=== PATIENT | male | born 1975 | race Caucasian/White ===

== ENCOUNTER 2017-10-27 13:51 | Inpatient (IN) | payer BC ==
[2017-10-27] MEDS ORDERED: Sodium Chloride 0.9% 1,000 ML IV ONE ×2 (14:25→16:16)
[2017-10-27] MEDS ORDERED: Sodium Chloride 0.9% 10 ML Syringe FLUSH PRN (14:25)
--- NOTE | 2017-10-27 14:26 | EDM.PDOCBH ---
ED HPI GENERAL MEDICAL PROBLEM - General Chief Complaint: Drug or Alcohol Abuse Stated Complaint: MEDICAL CLEARANCE Time Seen by Provider: 10/27/17 14:15 Source of Information: Reports: Patient History Limitations: Reports: No Limitations - History of Present Illness INITIAL COMMENTS - FREE TEXT/NARRATIVE: The patient is a 42-year-old male who is brought in by the [employer] for alcohol withdrawal. He is in custody for driving under the influence. Patient states that his last drink was about 10 hours ago. He starting to feel shaky. Has a history of severe withdrawal symptoms and seizures related to withdrawal. States he's been drinking a large amount for quite some time, about a bottle of hard liquor plus beer. He has no additional complaint. States he feels shaky and anxious. No recent illness. No cough, difficulty breathing, chest pain, abdominal pain, vomiting, or diarrhea. - Related Data Allergies Allergy/AdvReac Type Severity Reaction Status Date / Time Penicillins Allergy Other Verified 10/27/17 14:10 Home Meds: Home Meds diphenhydrAMINE HCl [Sleep Aid] 25 mg PO BEDTIME 10/27/17 [History] Past Medical History - Past Health History Medical/Surgical History: Denies Medical/Surgical History Social & Family History - Family History Family Medical History: Noncontributory - Tobacco Use Smoking Status *Q: Current Every Day Smoker Years of Tobacco use: 20 Packs/Tins Daily: 0.1 Used Tobacco, but Quit: No - Alcohol Use Days Per Week of Alcohol Use: 7 Number of Drinks Per Day: 18 Total Drinks Per Week: 126 - Recreational Drug Use Recreational Drug Use: No ED ROS GENERAL - Review of Systems Review Of Systems: See Below Constitutional: Reports: Malaise. Denies: Fever Respiratory: Denies: Shortness of Breath Cardiovascular: Denies: Chest Pain GI/Abdominal: Denies: Abdominal Pain Musculoskeletal: Reports: No Symptoms Skin: Reports: No Symptoms Neurological: Reports: No Symptoms Psychiatric: Reports: Anxiety ED EXAM, BEHAVIORAL HEALTH - Physical Exam Exam: See Below Exam Limited By: No Limitations General Appearance: Alert, WD/WN, No Apparent Distress, Other (Mildly tremulous) Eye Exam: Bilateral Eye: EOMI, Normal Inspection, PERRL Ears: Normal External Exam Nose: Normal Inspection Throat/Mouth: Normal Inspection, Normal Oropharynx, Normal Voice, No Airway Compromise Head: Atraumatic, Normocephalic Neck: Normal Inspection, Supple, Non-Tender, Full Range of Motion Respiratory/Chest: No Respiratory Distress, Lungs Clear, Normal Breath Sounds, Chest Non-Tender Cardiovascular: Normal Peripheral Pulses, Regular Rate, Rhythm, No Murmur, Tachycardia GI/Abdominal: Soft, Non-Tender, No Distention. No: Rebound Back Exam: Normal Inspection Extremities: Normal Inspection Neurological: Alert, Normal Mood/Affect, CN II-XII Intact, Normal Cognition, No Motor/Sensory Deficits, Oriented x 3 Psychiatric: Alert, Normal Affect, Normal Cognition, Normal Mood, Oriented Skin Exam: Warm, Dry, Intact, Normal color, No rash COURSE, BEHAVIORAL HEALTH COMP - Course Vital Signs: Last Vital Signs Temp 37.3 C 10/27/17 14:08 Pulse 107 H 10/27/17 14:08 Resp 19 10/27/17 16:27 BP 123/96 H 10/27/17 16:27 Pulse Ox 96 10/27/17 16:27 Orders, Labs, Meds: Active Orders 24 hr Category Date Time Status EKG 12 Lead [EKG Documentation Completion] [RC] STAT Care 10/27/17 14:25 Active Peripheral IV Care [RC] . DIRECTED Care 10/27/17 14:25 Active Sodium Chloride 0.9% [Normal Saline] 1,000 ml Med 10/27/17 16:16 Active IV ONETIME Sodium Chloride 0.9% [Saline Flush] Med 10/27/17 14:25 Active 10 ml FLUSH ASDIRECTED PRN Peripheral IV Insertion Adult [OM.PC] Routine Oth 10/27/17 14:25 Ordered Medication Orders Sodium Chloride (Normal Saline) 1,000 mls @ 999 mls/hr IV ONETIME ONE Stop: 10/27/17 17:16 Last Admin: 10/27/17 16:18 Dose: 999 mls/hr Sodium Chloride (Saline Flush) 10 ml FLUSH ASDIRECTED PRN PRN Reason: Keep Vein Open Last Admin: 10/27/17 14:45 Dose: 10 ml Laboratory Tests 10/27/17 10/27/17 Range/Units 14:45 14:45 WBC 5.71 (4.23-9.07) K/mm3 RBC 4.03 L (4.63-6.08) M/mm3 Hgb 13.6 L (13.7-17.5) gm/L Hct 38.4 L (40.1-51.0) % MCV 95.3 H (79.0-92.2) fl MCH 33.7 H (25.7-32.2) pg MCHC 35.4 (32.2-35.5) g/dl RDW Std Deviation 46.0 H (35.1-43.9) fL Plt Count 145 L (163-337) K/mm3 MPV 8.9 L (9.4-12.3) fl Neut % (Auto) 77.2 H (34.0-67.9) % Lymph % (Auto) 10.9 L (21.8-53.1) % Borden % (Auto) 11.0 (5.3-12.2) % Eos % (Auto) 0 L (0.8-7.0) Baso % (Auto) 0.4 (0.1-1.2) % Neut # (Auto) 4.41 (1.78-5.38) K/mm3 Lymph # (Auto) 0.62 L (1.32-3.57) K/mm3 Borden # (Auto) 0.63 (0.30-0.82) K/mm3 Eos # (Auto) 0.00 L (0.04-0.54) K/mm3 Baso # (Auto) 0.02 (0.01-0.08) K/mm3 Sodium 138 (136-145) mEq/L Potassium 3.3 L (3.5-5.1) mEq/L Chloride 100 (98-107) mEq/L Carbon Dioxide 25 (21-32) mEq/L Anion Gap 16.3 H (5-15) BUN 7 (7-18) mg/dL Creatinine 0.8 (0.7-1.3) mg/dL Est Cr Clr Drug Dosing 120.96 mL/min Estimated GFR (MDRD) > 60 (>60) mL/min BUN/Creatinine Ratio 8.8 L (14-18) Glucose 82 (74-106) mg/dL Calcium 8.9 (8.5-10.1) mg/dL Total Bilirubin 0.9 (0.2-1.0) mg/dL AST 214 H (15-37) U/L ALT 206 H (16-63) U/L Alkaline Phosphatase 105 (46-116) U/L Total Protein 6.8 (6.4-8.2) g/dl Albumin 3.5 (3.4-5.0) g/dl Globulin 3.3 gm/dL Albumin/Globulin Ratio 1.1 (1-2) Ethyl Alcohol 0.05 (0.00) gm% Medications Generic Name Dose Route Start Last Admin Trade Name Freq PRN Reason Stop Dose Admin Sodium Chloride 1,000 mls @ 999 mls/hr 10/27/17 16:16 10/27/17 16:18 Normal Saline IV 10/27/17 17:16 999 mls/hr ONETIME ONE Administration Sodium Chloride 10 ml 10/27/17 14:25 10/27/17 14:45 Saline Flush FLUSH 10 ml ASDIRECTED PRN Administration Keep Vein Open Discontinued Medications Generic Name Dose Route Start Last Admin Trade Name Freq PRN Reason Stop Dose Admin Chlordiazepoxide HCl 50 mg 10/27/17 14:32 10/27/17 15:01 Librium PO 10/27/17 14:33 50 mg ONETIME ONE Administration Chlordiazepoxide HCl 50 mg 10/27/17 16:03 10/27/17 16:17 Librium PO 10/27/17 16:04 50 mg ONETIME ONE Administration Sodium Chloride 1,000 mls @ 1,000 mls/hr 10/27/17 14:25 10/27/17 14:59 Normal Saline IV 10/27/17 15:24 1,000 mls/hr ONETIME ONE Administration Sodium Chloride Confirm 10/27/17 16:16 10/27/17 16:19 Normal Saline Administered 10/27/17 16:17 Not Given Dose 1,000 mls @ as directed .ROUTE .STK-MED ONE Lorazepam 2 mg 10/27/17 14:31 10/27/17 15:00 Ativan IVPUSH 10/27/17 14:32 2 mg ONETIME ONE Administration Lorazepam 4 mg 10/27/17 16:03 10/27/17 16:19 Ativan IVPUSH 10/27/17 16:04 4 mg ONETIME ONE Administration Lorazepam 6 mg 10/27/17 16:41 10/27/17 16:57 Ativan IVPUSH 10/27/17 16:42 6 mg ONETIME ONE Administration Re-Assessment/Re-Exam: EKG shows normal sinus rhythm, no evidence of acute abnormality. At the time of my initial evaluation patient was showing signs of mild alcohol withdrawal. He was given 2 mg of Ativan and 50 mg of Librium. Upon my reevaluation, he continues to be tachycardic and tremulous. An additional 4 mg of Ativan and 50 mg of Librium were ordered. 16:45 HR 130 when patient sits up. Still tremulous. Another 6mg ativan ordered. Discussed with Dr. garcia who agrees to admit the patient to the ICU. Departure - Departure Time of Disposition: 17:00 Disposition: Admitted As Inpatient 64 Clinical Impression: Alcohol withdrawal Qualifiers: Complication of substance-induced condition: uncomplicated Qualified Code(s): F10.230 - Alcohol dependence with withdrawal, uncomplicated - Discharge Information Referrals: PCP,None [Primary Care Provider] - - My Orders Last 24 Hours: My Active Orders 10/27/17 14:25 EKG 12 Lead [EKG Documentation Completion] [RC] STAT Peripheral IV Care [RC] . DIRECTED Sodium Chloride 0.9% [Saline Flush] 10 ml FLUSH ASDIRECTED PRN Peripheral IV Insertion Adult [OM.PC] Routine 10/27/17 16:16 Sodium Chloride 0.9% [Normal Saline] 1,000 ml IV ONETIME - Assessment/Plan Last 24 Hours: My Active Orders 10/27/17 14:25 EKG 12 Lead [EKG Documentation Completion] [RC] STAT Peripheral IV Care [RC] . DIRECTED Sodium Chloride 0.9% [Saline Flush] 10 ml FLUSH ASDIRECTED PRN Peripheral IV Insertion Adult [OM.PC] Routine 10/27/17 16:16 Sodium Chloride 0.9% [Normal Saline] 1,000 ml IV ONETIME
[2017-10-27] MEDS ORDERED: LORazepam 2 MG/ML MDV IVPUSH ONE ×4 (14:31→18:16)
[2017-10-27] MEDS ORDERED: chlordiazePOXIDE 25 MG Cap PO ONE ×2 (14:32→16:03)
[2017-10-27] MEDS ORDERED: Sodium Chloride 0.9% 1,000 ML ONE (16:16)
--- NOTE | 2017-10-27 17:40 | PCM.HP ---
H&P History of Present Illness - General Date of Service: 10/27/17 Admit Problem/Dx: Admission Diagnosis/Problem Admission Diagnosis/Problem Alcohol withdrawal syndrome Source of Information: Provider History Limitations: Reports: No Limitations - History of Present Illness Initial Comments - Free Text/Narative: 42 year old male with DUI, ANTONETTE 0.[address] [facility] ED for evaluation and treatment for ETOH dependence/abuse. he has a history of alcohol withdrawal seizures. The actual quantity that he drinks is unknown. He will be admitted to the ICU per protocol for [facility] detox treatment. Onset of Symptoms: Reports: Sudden Symptom Onset Date: 10/27/17 Duration of Symptoms: Reports: Hour(s): Location: Reports: Generalized Quality: Reports: Same as Previous Episode Severity: Severe Improves with: Reports: Medication Worsens with: Reports: Other (ETOH withdrawl) Associated Symptoms: Reports: Confusion, Loss of Appetite, Nausea/Vomiting - Related Data Allergies/Adverse Reactions: Allergies Allergy/AdvReac Type Severity Reaction Status Date / Time Penicillins Allergy Other Verified 10/27/17 14:10 Home Medications: Home Meds diphenhydrAMINE HCl [Sleep Aid] 25 mg PO BEDTIME 10/27/17 [History] Past Medical History - Past Health History Medical/Surgical History: Denies Medical/Surgical History Respiratory History: Reports: Other (See Below) Other Respiratory History: "lung surgery because it kept collapsing." Musculoskeletal History: Reports: Fracture Other Musculoskeletal History: "fractured spine" Psychiatric History: Reports: Addiction Social & Family History - Family History Family Medical History: Noncontributory - Tobacco Use Smoking Status *Q: Current Every Day Smoker Years of Tobacco use: 20 Packs/Tins Daily: 0.1 Used Tobacco, but Quit: No - Alcohol Use Days Per Week of Alcohol Use: 7 Number of Drinks Per Day: 18 Total Drinks Per Week: 126 - Recreational Drug Use Recreational Drug Use: No H&P Review of Systems - Review of Systems: Review Of Systems: See Below General: Reports: Malaise, Weakness HEENT: Reports: No Symptoms Pulmonary: Reports: No Symptoms Cardiovascular: Reports: No Symptoms Gastrointestinal: Reports: No Symptoms Genitourinary: Reports: No Symptoms Musculoskeletal: Reports: No Symptoms Skin: Reports: No Symptoms Psychiatric: Reports: Confusion, Mood Lability, Anxiety, Agitation Neurological: Reports: No Symptoms Hematologic/Lymphatic: Reports: No Symptoms Immunologic: Reports: No Symptoms Exam - Exam Exam: See Below - Vital Signs Vital Signs: Last Vital Signs Temp 37.3 C 10/27/17 14:08 Pulse 107 H 10/27/17 14:08 Resp 19 10/27/17 17:08 BP 133/99 H 10/27/17 17:08 Pulse Ox 98 10/27/17 17:08 Weight: 72.575 kg - Exam Quality Assessment: Supplemental Oxygen General: Other (agitated) HEENT: Conjunctiva Clear, Nares Patent, Normal Nasal Septum, Pupils Equal, Pupils Reactive, PERRLA Neck: Supple, Trachea Midline Lungs: Normal Respiratory Effort Cardiovascular: Regular Rate, Tachycardia GI/Abdominal Exam: Normal Bowel Sounds, Soft, Non-Tender, No Organomegaly, No Distention (Male) Exam: Deferred Rectal (Males) Exam: Deferred Back Exam: Normal Inspection Extremities: Normal Inspection, No Pedal Edema Skin: Warm Neurological: Cranial Nerves Intact Neuro Extensive - Mental Status: Disorientation to Place, Disorientation to Time Neuro Extensive - Motor, Sensory, Reflexes: CN II-XII Intact Psychiatric: Labile Mood, Anxious, Agitated, Withdrawal Symptoms - Patient Data Result Diagrams: 10/27/17 14:45 10/27/17 14:45 *Q Meaningful Use (ADM) - VTE *Q VTE Criteria *Q: - Stroke *Q Stroke Criteria *Q: - AMI *Q AMI Criteria *Q: - Problem List (1) Alcohol withdrawal syndrome SNOMED Code(s): 828589193 ICD Code: F10.239 - ALCOHOL DEPENDENCE WITH WITHDRAWAL, UNSPECIFIED Status : Acute Current Visit: Yes Qualifiers: Complication of substance-induced condition: uncomplicated Qualified Code(s ): F10.230 - Alcohol dependence with withdrawal, uncomplicated (2) Alcohol abuse SNOMED Code(s): 21460194 ICD Code: F10.10 - ALCOHOL ABUSE, UNCOMPLICATED Status: Acute Current Visit: No (3) Seizure SNOMED Code(s): 07894591 ICD Code: R56.9 - UNSPECIFIED CONVULSIONS Status: Acute Current Visit: No Problem List Initiated/Reviewed/Updated: Yes Orders Last 24hrs: Active Orders 24 hr Category Date Time Status Patient Status [ADT] Routine ADT 10/27/17 17:36 Active Medication Orders Sodium Chloride (Saline Flush) 10 ml FLUSH ASDIRECTED PRN PRN Reason: Keep Vein Open Last Admin: 10/27/17 14:45 Dose: 10 ml Assessment/Plan Comment:: Impression: Alcohol withdrawal syndrome History ETOH withdrawal SZ DUI, ANTONETTE 0.05 at time of ED evaluation and [place]. Plan: CIWA protocol Ativan gtt/Librium scheduled. Consults: SA, Psych Consults: SW, PT/OT (if needed). IVF Thiamine/Folic acid ASP/SZ precautions DVT/GI prophylaxis
[2017-10-27] MEDS ORDERED: chlordiazePOXIDE 10 MG Cap PO SCH ×2 (18:00)
[2017-10-27] MEDS: Sodium Chloride 0.9% 1,000 ML IV SCH ×2 (18:10→23:16)
[2017-10-27] MEDS ORDERED: LORazepam 2 MG/ML MDV IVPUSH PRN (18:20)
[2017-10-27] MEDS ORDERED: Metoprolol Tartrate 5 MG/5 ML SDV IVPUSH PRN (18:39)
[2017-10-27] MEDS ORDERED: chlordiazePOXIDE 25 MG Cap ONE (18:42)
[2017-10-27] MEDS: chlordiazePOXIDE 25 MG Cap PO SCH ×2 (20:33→20:51)
[2017-10-27] MEDS: Metoprolol Tartrate 25 MG Tab PO SCH (20:40)
[2017-10-27] MEDS: Nicotine 21 MG/24 Hr Patch TRDERM SCH (20:41)
[2017-10-27] MEDS: NS + KCl 20mEq/L 1,000 ML IV SCH (20:42)
[2017-10-27] MEDS: Pantoprazole 40 MG Vial IVPUSH SCH (20:42)
[2017-10-27] MEDS: LORazepam 20 MG in Dextrose 5% in Water 90 ML IV SCH ×2 (20:44)
[2017-10-27] MEDS ORDERED: Acetaminophen 325 MG Tab PO PRN (21:33)
[2017-10-27] MEDS: Haloperidol Lactate 5 MG/ML SDV IVPUSH PRN (22:31)
[2017-10-28] MEDS: LORazepam 2 MG/ML MDV IVPUSH PRN ×4 (00:07→23:24)
[2017-10-28] MEDS: LORazepam 20 MG in Dextrose 5% in Water 90 ML IV SCH ×16 (00:44→23:05)
[2017-10-28] MEDS: Ondansetron 4 MG/2 ML SDV IVPUSH PRN (05:12)
[2017-10-28] MEDS: NS + KCl 20mEq/L 1,000 ML IV SCH ×3 (05:12→18:43)
--- NOTE | 2017-10-28 07:54 | CR ---
Chest: Portable view of the chest was obtained. Comparison: Prior chest x-ray of 06/04/13. Stable blunting of the right lateral costophrenic angle is seen. Lungs are clear. Heart size is normal. Mild scoliosis is present within the spine. Impression: 1. Incidental findings. Nothing acute is identified on portable chest x-ray. Diagnostic code #2
[2017-10-28] MEDS: Metoprolol Tartrate 25 MG Tab PO SCH ×2 (08:36→20:09)
[2017-10-28] MEDS: chlordiazePOXIDE 25 MG Cap PO SCH ×4 (08:37→20:09)
[2017-10-28] MEDS ORDERED: FLU Vacc QS 2017-18 (6mos UP)/PF 60 MCG/0.5 ML Syringe IM ONE ×2 (08:38→09:00)
[2017-10-28] MEDS ORDERED: Pneumococcal Polyvalent-23 Vaccine 0.5 ML SDV SUBCUT ONE (08:38)
[2017-10-28] MEDS: Folic Acid 50 MG/10 ML MDV SUBCUT SCH (08:39)
[2017-10-28] MEDS: Pantoprazole 40 MG Vial IVPUSH SCH ×2 (08:41→20:09)
[2017-10-28] MEDS: Thiamine 200 MG/2 ML MDV IV SCH (08:44)
[2017-10-28] MEDS: Enoxaparin 40 MG/0.4 ML Syringe SUBCUT SCH (08:45)
[2017-10-28] MEDS: Nicotine 21 MG/24 Hr Patch TRDERM SCH (08:48)
--- NOTE | 2017-10-28 15:54 | PCM.PN ---
- General Info Date of Service: 10/28/17 Functional Status: Reports: Tolerating Diet, Ambulating, Urinating - Review of Systems General: Reports: Weakness HEENT: Reports: No Symptoms Pulmonary: Reports: No Symptoms Cardiovascular: Reports: No Symptoms Gastrointestinal: Reports: No Symptoms Genitourinary: Reports: No Symptoms Musculoskeletal: Reports: No Symptoms Skin: Reports: No Symptoms Neurological: Reports: No Symptoms Psychiatric: Reports: Mood Lability, Anxiety - Patient Data Vitals - Most Recent: Last Vital Signs Temp 36.4 C 10/28/17 12:00 Pulse 93 10/28/17 14:01 Resp 19 10/28/17 14:01 BP 111/90 10/28/17 14:00 Pulse Ox 98 10/28/17 14:01 Weight - Most Recent: 71.985 kg I&O - Last 24 Hours: Intake & Output 10/28/17 10/28/17 10/28/17 06:59 14:59 22:59 Intake Total 2969 1442 Output Total 1400 150 Balance 1569 1292 Lab Results Last 24 Hours: Laboratory Results - last 24 hr 10/27/17 10/27/17 10/28/17 Range/Units 22:15 22:15 04:13 WBC (4.23-9.07) K/mm3 RBC (4.63-6.08) M/mm3 Hgb (13.7-17.5) gm/L Hct (40.1-51.0) % MCV (79.0-92.2) fl MCH (25.7-32.2) pg MCHC (32.2-35.5) g/dl RDW Std Deviation (35.1-43.9) fL Plt Count (163-337) K/mm3 MPV (9.4-12.3) fl Neut % (Auto) (34.0-67.9) % Lymph % (Auto) (21.8-53.1) % [place] % (Auto) (5.3-12.2) % Eos % (Auto) (0.8-7.0) Baso % (Auto) (0.1-1.2) % Neut # (Auto) (1.78-5.38) K/mm3 Lymph # (Auto) (1.32-3.57) K/mm3 [place] # (Auto) (0.30-0.82) K/mm3 Eos # (Auto) (0.04-0.54) K/mm3 Baso # (Auto) (0.01-0.08) K/mm3 Sodium 135 L (136-145) mEq/L Potassium 3.1 L (3.5-5.1) mEq/L Chloride 100 (98-107) mEq/L Carbon Dioxide 25 (21-32) mEq/L Anion Gap 13.1 (5-15) BUN 6 L (7-18) mg/dL Creatinine 0.7 (0.7-1.3) mg/dL Est Cr Clr Drug Dosing 137.11 mL/min Estimated GFR (MDRD) > 60 (>60) mL/min BUN/Creatinine Ratio 8.6 L (14-18) Glucose 102 (74-106) mg/dL Calcium 8.2 L (8.5-10.1) mg/dL Magnesium 1.4 L (1.8-2.4) mg/dl C-Reactive Protein 1.2 H* (<1.0) mg/dL Urine Color Yellow (Yellow) Urine Appearance Clear (Clear) Urine pH 7.0 (5.0-8.0) Ur Specific [place] 1.020 (1.005-1.030) Urine Protein Negative (Negative) Urine Glucose (UA) Negative (Negative) Urine Ketones 1+ H (Negative) Urine Occult Blood Trace-lysed H (Negative) Urine Nitrite Negative (Negative) Urine Bilirubin Negative (Negative) Urine Urobilinogen 1.0 (0.2-1.0) Ur Leukocyte Esterase Negative (Negative) Urine Opiates Screen Negative (NEGATIVE) Ur Buprenorphine Scrn Negative (NEGATIVE) Ur Oxycodone Screen Negative (NEGATIVE) Urine Methadone Screen Negative (NEGATIVE) Ur Propoxyphene Screen Negative (NEGATIVE) Ur Barbiturates Screen Negative (NEGATIVE) Ur Tricyclics Screen Negative (NEGATIVE) Ur Phencyclidine Scrn Negative (NEGATIVE) Ur Amphetamine Screen Negative (NEGATIVE) U Methamphetamines Scrn Negative (NEGATIVE) U Benzodiazepines Scrn Presumptive positive H (NEGATIVE) U Cocaine Metab Screen Negative (NEGATIVE) U Marijuana (THC) Screen Negative (NEGATIVE) 10/28/17 Range/Units 04:53 WBC 3.08 L (4.23-9.07) K/mm3 RBC 3.74 L (4.63-6.08) M/mm3 Hgb 12.3 L (13.7-17.5) gm/L Hct 36.0 L (40.1-51.0) % MCV 96.3 H (79.0-92.2) fl MCH 32.9 H (25.7-32.2) pg MCHC 34.2 (32.2-35.5) g/dl RDW Std Deviation 46.3 H (35.1-43.9) fL Plt Count 132 L (163-337) K/mm3 MPV 9.0 L (9.4-12.3) fl Neut % (Auto) 56.0 (34.0-67.9) % Lymph % (Auto) 26.9 (21.8-53.1) % [place] % (Auto) 14.0 H (5.3-12.2) % Eos % (Auto) 1.9 (0.8-7.0) Baso % (Auto) 0.6 (0.1-1.2) % Neut # (Auto) 1.72 L (1.78-5.38) K/mm3 Lymph # (Auto) 0.83 L (1.32-3.57) K/mm3 [place] # (Auto) 0.43 (0.30-0.82) K/mm3 Eos # (Auto) 0.06 (0.04-0.54) K/mm3 Baso # (Auto) 0.02 (0.01-0.08) K/mm3 Sodium (136-145) mEq/L Potassium (3.5-5.1) mEq/L Chloride (98-107) mEq/L Carbon Dioxide (21-32) mEq/L Anion Gap (5-15) BUN (7-18) mg/dL Creatinine (0.7-1.3) mg/dL Est Cr Clr Drug Dosing mL/min Estimated GFR (MDRD) (>60) mL/min BUN/Creatinine Ratio (14-18) Glucose (74-106) mg/dL Calcium (8.5-10.1) mg/dL Magnesium (1.8-2.4) mg/dl C-Reactive Protein (<1.0) mg/dL Urine Color (Yellow) Urine Appearance (Clear) Urine pH (5.0-8.0) Ur Specific [place] (1.005-1.030) Urine Protein (Negative) Urine Glucose (UA) (Negative) Urine Ketones (Negative) Urine Occult Blood (Negative) Urine Nitrite (Negative) Urine Bilirubin (Negative) Urine Urobilinogen (0.2-1.0) Ur Leukocyte Esterase (Negative) Urine Opiates Screen (NEGATIVE) Ur Buprenorphine Scrn (NEGATIVE) Ur Oxycodone Screen (NEGATIVE) Urine Methadone Screen (NEGATIVE) Ur Propoxyphene Screen (NEGATIVE) Ur Barbiturates Screen (NEGATIVE) Ur Tricyclics Screen (NEGATIVE) Ur Phencyclidine Scrn (NEGATIVE) Ur Amphetamine Screen (NEGATIVE) U Methamphetamines Scrn (NEGATIVE) U Benzodiazepines Scrn (NEGATIVE) U Cocaine Metab Screen (NEGATIVE) U Marijuana (THC) Screen (NEGATIVE) Med Orders - Current: Current Medications Acetaminophen (Tylenol) 650 mg PO Q4H PRN PRN Reason: Pain Chlordiazepoxide HCl (Librium) 75 mg PO TID [facility] Last Admin: 10/28/17 08:37 Dose: 75 mg Enoxaparin Sodium (Lovenox) 40 mg SUBCUT DAILY [facility] Last Admin: 10/28/17 08:45 Dose: 40 mg Folic Acid (Folic Acid) 1 mg SUBCUT DAILY [facility] Last Admin: 10/28/17 08:39 Dose: 1 mg Haloperidol Lactate (Haldol) 2 mg IVPUSH Q8H PRN PRN Reason: restlessness Last Admin: 10/27/17 22:31 Dose: 2 mg Potassium Chloride/Sodium Chloride (Normal Saline With 20 Meq Kcl) 1,000 mls @ 150 mls/hr IV ASDIRECTED [facility] Last Admin: 10/28/17 11:55 Dose: 150 mls/hr Lorazepam 20 mg/ Dextrose/ (Water) 100 mls @ 25 mls/hr IV TITRATE [facility]; 5 MG/HR PRN Reason: Protocol Last Admin: 10/28/17 15:24 Dose: 5 mg/hr, 25 mls/hr Lorazepam (Ativan) 8 mg IVPUSH Q2H PRN PRN Reason: Anxiety Lorazepam (Ativan) 0 mg IVPUSH Q1H PRN; Protocol PRN Reason: withdrawl Last Admin: 10/28/17 01:59 Dose: 2 mg Metoprolol Tartrate (Lopressor) 25 mg PO Q12HR [facility] Last Admin: 10/28/17 08:36 Dose: 25 mg Metoprolol Tartrate (Lopressor) 5 mg IVPUSH Q4H PRN PRN Reason: heart rate>120 Nicotine (Habitrol) 21 mg TRDERM DAILY [facility] Last Admin: 10/28/17 08:48 Dose: 21 mg Ondansetron HCl (Zofran) 4 mg IVPUSH Q8H PRN PRN Reason: Nausea Last Admin: 10/28/17 05:12 Dose: 4 mg Pantoprazole Sodium (Protonix Iv) 40 mg IVPUSH Q12H [facility] Last Admin: 10/28/17 08:41 Dose: 40 mg Sodium Chloride (Saline Flush) 10 ml FLUSH ASDIRECTED PRN PRN Reason: Keep Vein Open Last Admin: 10/27/17 14:45 Dose: 10 ml Thiamine HCl (Vitamin B-1) 100 mg IV DAILY [facility] Last Admin: 10/28/17 08:44 Dose: 100 mg Discontinued Medications Chlordiazepoxide HCl (Librium) 50 mg PO ONETIME ONE Stop: 10/27/17 14:33 Last Admin: 10/27/17 15:01 Dose: 50 mg Chlordiazepoxide HCl (Librium) 50 mg PO ONETIME ONE Stop: 10/27/17 16:04 Last Admin: 10/27/17 16:17 Dose: 50 mg Chlordiazepoxide HCl (Librium) 50 mg PO QID [facility] Chlordiazepoxide HCl (Librium) 75 mg PO TID [facility] Last Admin: 10/27/17 18:49 Dose: Not Given Chlordiazepoxide HCl (Librium) Confirm Administered Dose 75 mg .ROUTE .STK-MED ONE Stop: 10/27/17 18:43 Last Admin: 10/27/17 18:47 Dose: Not Given Sodium Chloride (Normal Saline) 1,000 mls @ 1,000 mls/hr IV ONETIME ONE Stop: 10/27/17 15:24 Last Admin: 10/27/17 14:59 Dose: 1,000 mls/hr Sodium Chloride (Normal Saline) Confirm Administered Dose 1,000 mls @ as directed .ROUTE .STK-MED ONE Stop: 10/27/17 16:17 Last Admin: 10/27/17 16:19 Dose: Not Given Sodium Chloride (Normal Saline) 1,000 mls @ 999 mls/hr IV ONETIME ONE Stop: 10/27/17 17:16 Last Admin: 10/27/17 16:18 Dose: 999 mls/hr Lorazepam 20 mg/ Sodium (Chloride) 100 mls @ 25 mls/hr IV TITRATE [facility]; 5 MG/HR PRN Reason: Protocol Sodium Chloride (Normal Saline) 1,000 mls @ 999 mls/hr IV ASDIRECTED [facility] Stop: 10/27/17 20:01 Last Admin: 10/27/17 23:16 Dose: 999 mls/hr Influenza Virus Vaccine (Flulaval Quad [id number]) 60 mcg IM .ONCE ONE Stop: 10/28/17 09:01 Lorazepam (Ativan) 2 mg IVPUSH ONETIME ONE Stop: 10/27/17 14:32 Last Admin: 10/27/17 15:00 Dose: 2 mg Lorazepam (Ativan) 4 mg IVPUSH ONETIME ONE Stop: 10/27/17 16:04 Last Admin: 10/27/17 16:19 Dose: 4 mg Lorazepam (Ativan) 6 mg IVPUSH ONETIME ONE Stop: 10/27/17 16:42 Last Admin: 10/27/17 16:57 Dose: 6 mg Lorazepam (Ativan) 8 mg IVPUSH ONETIME ONE Stop: 10/27/17 18:17 Last Admin: 10/27/17 18:27 Dose: 8 mg Pneumococcal Polyvalent Vaccine (Pneumovax 23) 0.5 ml SUBCUT .ONCE ONE Stop: 10/28/17 08:39 - Exam Quality Assessment: DVT Prophylaxis General: Alert, Oriented, Cooperative HEENT: Pupils Equal, Pupils Reactive Neck: Trachea Midline, No JVD Lungs: Normal Respiratory Effort Cardiovascular: Regular Rate, Tachycardia GI/Abdominal Exam: Normal Bowel Sounds, Soft, Non-Tender, No Organomegaly, No Distention (Male) Exam: Deferred Back Exam: Normal Inspection Extremities: Normal Inspection Skin: Warm Neurological: No New Focal Deficit Psy/Mental Status: Alert, Anxious - Problem List & Annotations (1) Alcohol withdrawal syndrome SNOMED Code(s): 689098654 Code(s): F10.239 - ALCOHOL DEPENDENCE WITH WITHDRAWAL, UNSPECIFIED Status: Acute Current Visit: Yes Qualifiers: Complication of substance-induced condition: uncomplicated Qualified Code(s ): F10.230 - Alcohol dependence with withdrawal, uncomplicated (2) Alcohol abuse SNOMED Code(s): 45260551 Code(s): F10.10 - ALCOHOL ABUSE, UNCOMPLICATED Status: Acute Current Visit: No (3) Seizure SNOMED Code(s): 65349343 Code(s): R56.9 - UNSPECIFIED CONVULSIONS Status: Acute Current Visit: No - Problem List Review Problem List Initiated/Reviewed/Updated: Yes - My Orders Last 24 Hours: My Active Orders 10/27/17 17:45 Aspiration Precautions [RC] ASDIRECTED 10/27/17 17:46 Haloperidol Lactate [Haldol] 2 mg IVPUSH Q8H PRN 10/27/17 17:48 Consult to Quantitative Developer [CONS] Routine 10/27/17 18:00 chlordiazePOXIDE [Librium] 75 mg PO TID 10/27/17 18:08 Notify Provider Consults [RC] ASDIRECTED 10/27/17 18:09 CIWAA Assessment [RC] Q1H 10/27/17 18:10 Seizure Precautions [OM.PC] Routine 10/27/17 18:20 LORazepam [Ativan] 8 mg IVPUSH Q2H PRN 10/27/17 18:39 Metoprolol Tartrate [Lopressor] 5 mg IVPUSH Q4H PRN 10/27/17 18:40 Code Status [Resuscitation Status] Routine 10/27/17 19:32 LORazepam 20 mg Dextrose 5% in Water 90 ml IV TITRATE 10/27/17 19:45 Nicotine [Habitrol] 21 mg TRDERM DAILY 10/27/17 20:02 NS + KCl 20mEq/L [Normal Saline with 20 mEq KCl] 1,000 ml IV ASDIRECTED 10/27/17 21:00 Metoprolol Tartrate [Lopressor] 25 mg PO Q12HR Pantoprazole [ProTONIX IV] 40 mg IVPUSH Q12H 10/27/17 21:33 Acetaminophen [Tylenol] 650 mg PO Q4H PRN Ondansetron [Zofran] 4 mg IVPUSH Q8H PRN 10/28/17 09:00 Consult to Physician [CONS] Routine Enoxaparin [Lovenox] 40 mg SUBCUT DAILY Folic Acid 1 mg SUBCUT DAILY Thiamine [Vitamin B-1] 100 mg IV DAILY 10/28/17 Lunch Clear Liquid Diet [DIET] 10/29/17 05:00 BASIC METABOLIC PANEL,BMP [CHEM] DAILY CBC WITH AUTO DIFF [HEME] DAILY CRP [C-REACTIVE PROTEIN] [CHEM] DAILY MAGNESIUM [CHEM] DAILY 10/30/17 05:00 BASIC METABOLIC PANEL,BMP [CHEM] DAILY CBC WITH AUTO DIFF [HEME] DAILY CRP [C-REACTIVE PROTEIN] [CHEM] DAILY MAGNESIUM [CHEM] DAILY 10/30/17 10:00 Consult for Substance Abuse [CONS] Routine 10/31/17 05:00 BASIC METABOLIC PANEL,BMP [CHEM] DAILY CBC WITH AUTO DIFF [HEME] DAILY CRP [C-REACTIVE PROTEIN] [CHEM] DAILY MAGNESIUM [CHEM] DAILY - Plan Plan:: Impression: Alcohol withdrawal syndrome History ETOH withdrawal SZ High CIWAs, has been 17 on Ativan gtt at 5 mg/hr DUI, ANTONETTE 0.05 at time of ED evaluation and [place]. Plan: CIWA protocol Ativan gtt/Librium scheduled. Consults: SA, Psych Consults: SW, PT/OT (if needed). IVF Thiamine/Folic acid ASP/SZ precautions DVT/GI prophylaxis
[2017-10-28] MEDS: Haloperidol Lactate 5 MG/ML SDV IVPUSH PRN (22:19)
[2017-10-29] MEDS: NS + KCl 20mEq/L 1,000 ML IV SCH ×4 (01:35→21:37)
[2017-10-29] MEDS: LORazepam 20 MG in Dextrose 5% in Water 90 ML IV SCH ×8 (02:50→18:46)
[2017-10-29] MEDS: Enoxaparin 40 MG/0.4 ML Syringe SUBCUT SCH (09:20)
[2017-10-29] MEDS: chlordiazePOXIDE 25 MG Cap PO SCH ×3 (09:21→20:38)
[2017-10-29] MEDS: Nicotine 21 MG/24 Hr Patch TRDERM SCH (09:22)
[2017-10-29] MEDS: Metoprolol Tartrate 25 MG Tab PO SCH ×2 (09:24→20:38)
[2017-10-29] MEDS: Pantoprazole 40 MG Vial IVPUSH SCH ×2 (09:27→20:38)
[2017-10-29] MEDS: Thiamine 100 MG Tab PO SCH (09:35)
[2017-10-29] MEDS: Folic Acid 1 MG Tab PO SCH (09:35)
[2017-10-29] MEDS: Folic Acid 50 MG/10 ML MDV SUBCUT SCH (10:11)
[2017-10-29] MEDS: Thiamine 200 MG/2 ML MDV IV SCH (10:11)
[2017-10-29] MEDS: LORazepam 2 MG/ML MDV IVPUSH PRN ×4 (14:14→22:56)
--- NOTE | 2017-10-29 16:48 | PCM.PN ---
- General Info Date of Service: 10/29/17 Functional Status: Reports: Tolerating Diet, Ambulating, Urinating - Review of Systems General: Reports: Weakness HEENT: Reports: No Symptoms Pulmonary: Reports: No Symptoms Cardiovascular: Reports: No Symptoms Gastrointestinal: Reports: No Symptoms Genitourinary: Reports: No Symptoms Musculoskeletal: Reports: No Symptoms Skin: Reports: No Symptoms Neurological: Reports: No Symptoms Psychiatric: Reports: Confusion - Patient Data Vitals - Most Recent: Last Vital Signs Temp 36.2 C 10/29/17 12:00 Pulse 92 10/29/17 12:00 Resp 18 10/29/17 12:00 BP 104/84 10/29/17 12:00 Pulse Ox 97 10/29/17 12:00 Weight - Most Recent: 72.665 kg I&O - Last 24 Hours: Intake & Output 10/29/17 10/29/17 10/29/17 06:59 14:59 22:59 Intake Total 3115 480 1916 Output Total 2100 1600 400 Balance 1015 -1120 1516 Lab Results Last 24 Hours: Laboratory Results - last 24 hr 10/29/17 10/29/17 Range/Units 06:57 06:57 WBC 2.99 L (4.23-9.07) K/mm3 RBC 3.82 L (4.63-6.08) M/mm3 Hgb 12.8 L (13.7-17.5) gm/L Hct 37.2 L (40.1-51.0) % MCV 97.4 H (79.0-92.2) fl MCH 33.5 H (25.7-32.2) pg MCHC 34.4 (32.2-35.5) g/dl RDW Std Deviation 46.8 H (35.1-43.9) fL Plt Count 139 L (163-337) K/mm3 MPV 8.7 L (9.4-12.3) fl Neut % (Auto) 49.8 (34.0-67.9) % Lymph % (Auto) 30.1 (21.8-53.1) % [place] % (Auto) 15.1 H (5.3-12.2) % Eos % (Auto) 2.3 (0.8-7.0) Baso % (Auto) 0.7 (0.1-1.2) % Neut # (Auto) 1.49 L (1.78-5.38) K/mm3 Lymph # (Auto) 0.90 L (1.32-3.57) K/mm3 [place] # (Auto) 0.45 (0.30-0.82) K/mm3 Eos # (Auto) 0.07 (0.04-0.54) K/mm3 Baso # (Auto) 0.02 (0.01-0.08) K/mm3 Manual Slide Review Abnormal smear Sodium 140 (136-145) mEq/L Potassium 3.4 L (3.5-5.1) mEq/L Chloride 104 (98-107) mEq/L Carbon Dioxide 27 (21-32) mEq/L Anion Gap 12.4 (5-15) BUN 2 L (7-18) mg/dL Creatinine 0.8 (0.7-1.3) mg/dL Est Cr Clr Drug Dosing 121.11 mL/min Estimated GFR (MDRD) > 60 (>60) mL/min BUN/Creatinine Ratio 2.5 L (14-18) Glucose 126 H (74-106) mg/dL Calcium 8.2 L (8.5-10.1) mg/dL Magnesium 1.4 L (1.8-2.4) mg/dl C-Reactive Protein 1.8 H* (<1.0) mg/dL Med Orders - Current: Current Medications Acetaminophen (Tylenol) 650 mg PO Q4H PRN PRN Reason: Pain Chlordiazepoxide HCl (Librium) 75 mg PO TID [facility] Last Admin: 10/29/17 14:14 Dose: 75 mg Enoxaparin Sodium (Lovenox) 40 mg SUBCUT DAILY [facility] Last Admin: 10/29/17 09:20 Dose: 40 mg Folic Acid (Folic Acid) 1 mg PO DAILY [facility] Last Admin: 10/29/17 09:35 Dose: 1 mg Haloperidol Lactate (Haldol) 2 mg IVPUSH Q8H PRN PRN Reason: restlessness Last Admin: 10/28/17 22:19 Dose: 2 mg Potassium Chloride/Sodium Chloride (Normal Saline With 20 Meq Kcl) 1,000 mls @ 150 mls/hr IV ASDIRECTED [facility] Last Admin: 10/29/17 15:06 Dose: 150 mls/hr Lorazepam 20 mg/ Dextrose/ (Water) 100 mls @ 15 mls/hr IV TITRATE [facility]; 3 MG/HR PRN Reason: Protocol Last Admin: 10/29/17 12:26 Dose: 3 mg/hr, 15 mls/hr Lorazepam (Ativan) 8 mg IVPUSH Q2H PRN PRN Reason: Anxiety Lorazepam (Ativan) 0 mg IVPUSH Q1H PRN; Protocol PRN Reason: withdrawl Last Admin: 10/29/17 15:24 Dose: 2 mg Metoprolol Tartrate (Lopressor) 25 mg PO Q12HR [facility] Last Admin: 10/29/17 09:24 Dose: 25 mg Metoprolol Tartrate (Lopressor) 5 mg IVPUSH Q4H PRN PRN Reason: heart rate>120 Nicotine (Habitrol) 21 mg TRDERM DAILY [facility] Last Admin: 10/29/17 09:22 Dose: 21 mg Ondansetron HCl (Zofran) 4 mg IVPUSH Q8H PRN PRN Reason: Nausea Last Admin: 10/28/17 05:12 Dose: 4 mg Pantoprazole Sodium (Protonix Iv) 40 mg IVPUSH Q12H [facility] Last Admin: 10/29/17 09:27 Dose: 40 mg Sodium Chloride (Saline Flush) 10 ml FLUSH ASDIRECTED PRN PRN Reason: Keep Vein Open Last Admin: 10/27/17 14:45 Dose: 10 ml Thiamine HCl (Vitamin B-1) 100 mg PO DAILY [facility] Last Admin: 10/29/17 09:35 Dose: 100 mg Discontinued Medications Chlordiazepoxide HCl (Librium) 50 mg PO ONETIME ONE Stop: 10/27/17 14:33 Last Admin: 10/27/17 15:01 Dose: 50 mg Chlordiazepoxide HCl (Librium) 50 mg PO ONETIME ONE Stop: 10/27/17 16:04 Last Admin: 10/27/17 16:17 Dose: 50 mg Chlordiazepoxide HCl (Librium) 50 mg PO QID [facility] Chlordiazepoxide HCl (Librium) 75 mg PO TID [facility] Last Admin: 10/27/17 18:49 Dose: Not Given Chlordiazepoxide HCl (Librium) Confirm Administered Dose 75 mg .ROUTE .STK-MED ONE Stop: 10/27/17 18:43 Last Admin: 10/27/17 18:47 Dose: Not Given Folic Acid (Folic Acid) 1 mg SUBCUT DAILY [facility] Last Admin: 10/29/17 10:11 Dose: Not Given Sodium Chloride (Normal Saline) 1,000 mls @ 1,000 mls/hr IV ONETIME ONE Stop: 10/27/17 15:24 Last Admin: 10/27/17 14:59 Dose: 1,000 mls/hr Sodium Chloride (Normal Saline) Confirm Administered Dose 1,000 mls @ as directed .ROUTE .STK-MED ONE Stop: 10/27/17 16:17 Last Admin: 10/27/17 16:19 Dose: Not Given Sodium Chloride (Normal Saline) 1,000 mls @ 999 mls/hr IV ONETIME ONE Stop: 10/27/17 17:16 Last Admin: 10/27/17 16:18 Dose: 999 mls/hr Lorazepam 20 mg/ Sodium (Chloride) 100 mls @ 25 mls/hr IV TITRATE [facility]; 5 MG/HR PRN Reason: Protocol Sodium Chloride (Normal Saline) 1,000 mls @ 999 mls/hr IV ASDIRECTED [facility] Stop: 10/27/17 20:01 Last Admin: 10/27/17 23:16 Dose: 999 mls/hr Influenza Virus Vaccine (Flulaval Quad [id number]) 60 mcg IM .ONCE ONE Stop: 10/28/17 09:01 Lorazepam (Ativan) 2 mg IVPUSH ONETIME ONE Stop: 10/27/17 14:32 Last Admin: 10/27/17 15:00 Dose: 2 mg Lorazepam (Ativan) 4 mg IVPUSH ONETIME ONE Stop: 10/27/17 16:04 Last Admin: 10/27/17 16:19 Dose: 4 mg Lorazepam (Ativan) 6 mg IVPUSH ONETIME ONE Stop: 10/27/17 16:42 Last Admin: 10/27/17 16:57 Dose: 6 mg Lorazepam (Ativan) 8 mg IVPUSH ONETIME ONE Stop: 10/27/17 18:17 Last Admin: 10/27/17 18:27 Dose: 8 mg Pneumococcal Polyvalent Vaccine (Pneumovax 23) 0.5 ml SUBCUT .ONCE ONE Stop: 10/28/17 08:39 Thiamine HCl (Vitamin B-1) 100 mg IV DAILY [facility] Last Admin: 10/29/17 10:11 Dose: Not Given - Exam Quality Assessment: Supplemental Oxygen, DVT Prophylaxis General: Alert, Oriented, Cooperative, No Acute Distress HEENT: Pupils Equal, Pupils Reactive, EOMI Neck: Supple, Trachea Midline Lungs: Normal Respiratory Effort Cardiovascular: Regular Rate, Regular Rhythm GI/Abdominal Exam: Normal Bowel Sounds, Soft, Non-Tender, No Organomegaly, No Distention (Male) Exam: Deferred Back Exam: Normal Inspection Extremities: Normal Inspection, Normal Range of Motion, Non-Tender, No Pedal Edema Skin: Warm Neurological: No New Focal Deficit Psy/Mental Status: Alert, Anxious - Problem List & Annotations (1) Alcohol withdrawal syndrome SNOMED Code(s): 849338810 Code(s): F10.239 - ALCOHOL DEPENDENCE WITH WITHDRAWAL, UNSPECIFIED Status: Acute Current Visit: Yes Qualifiers: Complication of substance-induced condition: uncomplicated Qualified Code(s ): F10.230 - Alcohol dependence with withdrawal, uncomplicated (2) Alcohol abuse SNOMED Code(s): 84158296 Code(s): F10.10 - ALCOHOL ABUSE, UNCOMPLICATED Status: Acute Current Visit: No (3) Seizure SNOMED Code(s): 19613473 Code(s): R56.9 - UNSPECIFIED CONVULSIONS Status: Acute Current Visit: No - Problem List Review Problem List Initiated/Reviewed/Updated: Yes - My Orders Last 24 Hours: My Active Orders 10/29/17 09:30 Folic Acid 1 mg PO DAILY Thiamine [Vitamin B-1] 100 mg PO DAILY 10/29/17 Lunch Soft Diet [DIET] 10/30/17 05:00 BASIC METABOLIC PANEL,BMP [CHEM] DAILY CBC WITH AUTO DIFF [HEME] DAILY CRP [C-REACTIVE PROTEIN] [CHEM] DAILY MAGNESIUM [CHEM] DAILY 10/30/17 10:00 Consult for Substance Abuse [CONS] Routine 10/31/17 05:00 BASIC METABOLIC PANEL,BMP [CHEM] DAILY CBC WITH AUTO DIFF [HEME] DAILY CRP [C-REACTIVE PROTEIN] [CHEM] DAILY MAGNESIUM [CHEM] DAILY - Plan Plan:: Impression: Alcohol withdrawal syndrome History ETOH withdrawal SZ High CIWAs, decreased on Ativan gtt at 5 mg/hr-->3mg/hr DUI, ANTONETTE 0.05 at time of ED evaluation and [place]. Plan: CIWA protocol Ativan gtt/Librium scheduled; resume IVP Ativan Consults: SA, Psych Consults: SW, PT/OT (if needed). IVF Thiamine/Folic acid ASP/SZ precautions DVT/GI prophylaxis
[2017-10-29] MEDS ORDERED: Temazepam 15 MG Cap PO PRN (23:23)
[2017-10-30] MEDS: LORazepam 2 MG/ML MDV IVPUSH PRN ×2 (01:14→09:58)
[2017-10-30] MEDS: NS + KCl 20mEq/L 1,000 ML IV SCH ×2 (04:24→11:08)
[2017-10-30] MEDS: Nicotine 21 MG/24 Hr Patch TRDERM SCH (09:36)
[2017-10-30] MEDS: Enoxaparin 40 MG/0.4 ML Syringe SUBCUT SCH (09:37)
[2017-10-30] MEDS: Thiamine 100 MG Tab PO SCH (09:38)
[2017-10-30] MEDS: chlordiazePOXIDE 25 MG Cap PO SCH (09:38)
[2017-10-30] MEDS: Metoprolol Tartrate 25 MG Tab PO SCH (09:38)
[2017-10-30] MEDS: Ondansetron 4 MG/2 ML SDV IVPUSH PRN (09:38)
[2017-10-30] MEDS: Folic Acid 1 MG Tab PO SCH (09:38)
[2017-10-30] MEDS: Pantoprazole 40 MG Vial IVPUSH SCH (09:40)
--- NOTE | 2017-10-30 09:50 | PCM.PN ---
- General Info Date of Service: 10/30/17 - Patient Data Vitals - Most Recent: Last Vital Signs Temp 36.4 C 10/30/17 08:00 Pulse 100 10/30/17 09:38 Resp 17 10/30/17 08:00 BP 108/90 10/30/17 09:38 Pulse Ox 100 10/30/17 08:00 Weight - Most Recent: 71.577 kg I&O - Last 24 Hours: Intake & Output 10/29/17 10/30/17 10/30/17 22:59 06:59 14:59 Intake Total 2246 1936 Output Total 1501 Balance 745 1936 Lab Results Last 24 Hours: Laboratory Results - last 24 hr 10/30/17 10/30/17 Range/Units 05:24 05:24 WBC 4.89 (4.23-9.07) K/mm3 RBC 3.92 L (4.63-6.08) M/mm3 Hgb 13.1 L (13.7-17.5) gm/L Hct 38.2 L (40.1-51.0) % MCV 97.4 H (79.0-92.2) fl MCH 33.4 H (25.7-32.2) pg MCHC 34.3 (32.2-35.5) g/dl RDW Std Deviation 47.0 H (35.1-43.9) fL Plt Count 195 (163-337) K/mm3 MPV 9.6 (9.4-12.3) fl Neut % (Auto) 65.5 (34.0-67.9) % Lymph % (Auto) 17.4 L (21.8-53.1) % [place] % (Auto) 14.7 H (5.3-12.2) % Eos % (Auto) 1.0 (0.8-7.0) Baso % (Auto) 0.2 (0.1-1.2) % Neut # (Auto) 3.20 (1.78-5.38) K/mm3 Lymph # (Auto) 0.85 L (1.32-3.57) K/mm3 [place] # (Auto) 0.72 (0.30-0.82) K/mm3 Eos # (Auto) 0.05 (0.04-0.54) K/mm3 Baso # (Auto) 0.01 (0.01-0.08) K/mm3 Sodium 141 (136-145) mEq/L Potassium 3.9 (3.5-5.1) mEq/L Chloride 102 (98-107) mEq/L Carbon Dioxide 31 (21-32) mEq/L Anion Gap 11.9 (5-15) BUN 4 L (7-18) mg/dL Creatinine 0.8 (0.7-1.3) mg/dL Est Cr Clr Drug Dosing 119.29 mL/min Estimated GFR (MDRD) > 60 (>60) mL/min BUN/Creatinine Ratio 5.0 L (14-18) Glucose 124 H (74-106) mg/dL Calcium 8.9 (8.5-10.1) mg/dL Magnesium 1.2 L (1.8-2.4) mg/dl C-Reactive Protein 1.0 (<1.0) mg/dL Med Orders - Current: Current Medications Acetaminophen (Tylenol) 650 mg PO Q4H PRN PRN Reason: Pain Chlordiazepoxide HCl (Librium) 75 mg PO TID ON LICENSE OF [facility] Last Admin: 10/30/17 09:38 Dose: 75 mg Enoxaparin Sodium (Lovenox) 40 mg SUBCUT DAILY ON LICENSE OF [facility] Last Admin: 10/30/17 09:37 Dose: 40 mg Folic Acid (Folic Acid) 1 mg PO DAILY ON LICENSE OF [facility] Last Admin: 10/30/17 09:38 Dose: 1 mg Haloperidol Lactate (Haldol) 2 mg IVPUSH Q8H PRN PRN Reason: restlessness Last Admin: 10/28/17 22:19 Dose: 2 mg Potassium Chloride/Sodium Chloride (Normal Saline With 20 Meq Kcl) 1,000 mls @ 150 mls/hr IV ASDIRECTED ON LICENSE OF [facility] Last Admin: 10/30/17 04:24 Dose: 150 mls/hr Lorazepam 20 mg/ Dextrose/ (Water) 100 mls @ 15 mls/hr IV TITRATE [facility]; 3 MG/HR PRN Reason: Protocol Last Admin: 10/29/17 18:46 Dose: 3 mg/hr, 15 mls/hr Lorazepam (Ativan) 8 mg IVPUSH Q2H PRN PRN Reason: Anxiety Lorazepam (Ativan) 0 mg IVPUSH Q1H PRN; Protocol PRN Reason: withdrawl Last Admin: 10/30/17 01:14 Dose: 2 mg Metoprolol Tartrate (Lopressor) 25 mg PO Q12HR ON LICENSE OF [facility] Last Admin: 10/30/17 09:38 Dose: 25 mg Metoprolol Tartrate (Lopressor) 5 mg IVPUSH Q4H PRN PRN Reason: heart rate>120 Nicotine (Habitrol) 21 mg TRDERM DAILY ON LICENSE OF [facility] Last Admin: 10/30/17 09:36 Dose: 21 mg Ondansetron HCl (Zofran) 4 mg IVPUSH Q8H PRN PRN Reason: Nausea Last Admin: 10/30/17 09:38 Dose: 4 mg Pantoprazole Sodium (Protonix Iv) 40 mg IVPUSH Q12H ON LICENSE OF [facility] Last Admin: 10/30/17 09:40 Dose: 40 mg Sodium Chloride (Saline Flush) 10 ml FLUSH ASDIRECTED PRN PRN Reason: Keep Vein Open Last Admin: 10/27/17 14:45 Dose: 10 ml Temazepam (Restoril) 15 mg PO BEDTIME PRN PRN Reason: Insomnia Last Admin: 10/29/17 23:29 Dose: 15 mg Thiamine HCl (Vitamin B-1) 100 mg PO DAILY ON LICENSE OF [facility] Last Admin: 10/30/17 09:38 Dose: 100 mg Discontinued Medications Chlordiazepoxide HCl (Librium) 50 mg PO ONETIME ONE Stop: 10/27/17 14:33 Last Admin: 10/27/17 15:01 Dose: 50 mg Chlordiazepoxide HCl (Librium) 50 mg PO ONETIME ONE Stop: 10/27/17 16:04 Last Admin: 10/27/17 16:17 Dose: 50 mg Chlordiazepoxide HCl (Librium) 50 mg PO QID ON LICENSE OF [facility] Chlordiazepoxide HCl (Librium) 75 mg PO TID ON LICENSE OF [facility] Last Admin: 10/27/17 18:49 Dose: Not Given Chlordiazepoxide HCl (Librium) Confirm Administered Dose 75 mg .ROUTE .STK-MED ONE Stop: 10/27/17 18:43 Last Admin: 10/27/17 18:47 Dose: Not Given Folic Acid (Folic Acid) 1 mg SUBCUT DAILY ON LICENSE OF [facility] Last Admin: 10/29/17 10:11 Dose: Not Given Sodium Chloride (Normal Saline) 1,000 mls @ 1,000 mls/hr IV ONETIME ONE Stop: 10/27/17 15:24 Last Admin: 10/27/17 14:59 Dose: 1,000 mls/hr Sodium Chloride (Normal Saline) Confirm Administered Dose 1,000 mls @ as directed .ROUTE .STK-MED ONE Stop: 10/27/17 16:17 Last Admin: 10/27/17 16:19 Dose: Not Given Sodium Chloride (Normal Saline) 1,000 mls @ 999 mls/hr IV ONETIME ONE Stop: 10/27/17 17:16 Last Admin: 10/27/17 16:18 Dose: 999 mls/hr Lorazepam 20 mg/ Sodium (Chloride) 100 mls @ 25 mls/hr IV TITRATE [facility]; 5 MG/HR PRN Reason: Protocol Sodium Chloride (Normal Saline) 1,000 mls @ 999 mls/hr IV ASDIRECTED [facility] Stop: 10/27/17 20:01 Last Admin: 10/27/17 23:16 Dose: 999 mls/hr Influenza Virus Vaccine (Flulaval Quad [id number]) 60 mcg IM .ONCE ONE Stop: 10/28/17 09:01 Lorazepam (Ativan) 2 mg IVPUSH ONETIME ONE Stop: 10/27/17 14:32 Last Admin: 10/27/17 15:00 Dose: 2 mg Lorazepam (Ativan) 4 mg IVPUSH ONETIME ONE Stop: 10/27/17 16:04 Last Admin: 10/27/17 16:19 Dose: 4 mg Lorazepam (Ativan) 6 mg IVPUSH ONETIME ONE Stop: 10/27/17 16:42 Last Admin: 10/27/17 16:57 Dose: 6 mg Lorazepam (Ativan) 8 mg IVPUSH ONETIME ONE Stop: 10/27/17 18:17 Last Admin: 10/27/17 18:27 Dose: 8 mg Pneumococcal Polyvalent Vaccine (Pneumovax 23) 0.5 ml SUBCUT .ONCE ONE Stop: 10/28/17 08:39 Thiamine HCl (Vitamin B-1) 100 mg IV DAILY [facility] Last Admin: 10/29/17 10:11 Dose: Not Given - Problem List & Annotations (1) Alcohol withdrawal syndrome SNOMED Code(s): 335214315 Code(s): F10.239 - ALCOHOL DEPENDENCE WITH WITHDRAWAL, UNSPECIFIED Status: Acute Current Visit: Yes Qualifiers: Complication of substance-induced condition: uncomplicated Qualified Code(s ): F10.230 - Alcohol dependence with withdrawal, uncomplicated (2) Alcohol abuse SNOMED Code(s): 37235181 Code(s): F10.10 - ALCOHOL ABUSE, UNCOMPLICATED Status: Acute Current Visit: No (3) Seizure SNOMED Code(s): 91629912 Code(s): R56.9 - UNSPECIFIED CONVULSIONS Status: Acute Current Visit: No - My Orders Last 24 Hours: My Active Orders 10/29/17 09:30 Folic Acid 1 mg PO DAILY Thiamine [Vitamin B-1] 100 mg PO DAILY 10/29/17 23:23 Temazepam [Restoril] 15 mg PO BEDTIME PRN 10/29/17 Lunch Soft Diet [DIET] 10/30/17 09:49 Magnesium Sulfate/Water [Magnesium Sulfate 4 GM in Water 100 ML] 4 gm Premix Bag 1 bag IV ONETIME 10/30/17 10:00 Consult for Substance Abuse [CONS] Routine 10/30/17 Lunch Regular Diet [DIET] 10/31/17 05:00 BASIC METABOLIC PANEL,BMP [CHEM] DAILY CBC WITH AUTO DIFF [HEME] DAILY CRP [C-REACTIVE PROTEIN] [CHEM] DAILY MAGNESIUM [CHEM] DAILY - Plan Plan:: Impression: Alcohol withdrawal syndrome History ETOH withdrawal SZ High CIWAs, decreased on Ativan gtt at 5 mg/hr-->3mg/hr DUI, ANTONETTE 0.05 at time of ED evaluation and TX. Plan: CIWA protocol Ativan gtt/Librium scheduled; resume IVP Ativan Consults: SA, Psych Consults: SW, PT/OT (if needed). IVF Thiamine/Folic acid ASP/SZ precautions DVT/GI prophylaxis
[2017-10-30] MEDS ORDERED: Magnesium Sulfate/Water 4 GM in Premix Bag 1 BAG IV ONE (10:00)
[2017-10-30] MEDS ORDERED: LORazepam 2 MG/ML MDV IVPUSH PRN (10:13)
[2017-10-30] MEDS ORDERED: LORazepam 2 MG/ML MDV IVPUSH SCH (10:15)
[2017-10-30] MEDS: LORazepam 2 MG/ML MDV IVPUSH SCH ×2 (10:56→13:23)
[2017-10-30] MEDS: Magnesium Sulfate/Water 2 GM in Premix Bag 1 BAG IV SCH ×2 (11:07→12:04)
[2017-10-30] MEDS: Haloperidol Lactate 5 MG/ML SDV IVPUSH PRN (12:09)
[2017-10-30] MEDS ORDERED: chlordiazePOXIDE 25 MG Cap PO SCH (12:32)
[2017-10-30] MEDS ORDERED: Haloperidol Lactate 5 MG/ML SDV IVPUSH PRN (12:32)
[2017-10-30] MEDS ORDERED: QUEtiapine 25 MG Tab PO SCH (12:45)
--- NOTE | 2017-10-30 14:21 | PCM.DCSUM1 ---
Discharge Summary - Hospital Course Free Text/Narrative:: 42 year old male treated for ETOH withdrawal and ETOH dependence wanted to leave AMA; he stated that he would rather be in skilled nursing than the hospital. The [employer] department was notified, and he was picked up. A 24 hour hold had been filed during his admission, this was faxed per the instructions on the document. The patient had been picked up by the police on 10/27/17, and brought to the ED department, he has a DUI. He was to be treated for ETOH dependence per the [employer] department. He was treated per [facility] protocol for ETOH withdrawal. During his hospitalization, he was monitored in the ICU. Treatment included an Ativan drip at 5 mg/hr, he also received scheduled Librium and Ativan IVP. There were no withdrawal seizures which he has had in the past. Primary Dx ETOH withdrawal, severe ETOH dependence, severe History of ETOH withdrawal seizures Condition Fair Disposition Snf, picked up by the [employer] department Diet Regular Medication None - Discharge Data Discharge Date: 10/30/17 Discharge Disposition: Against Medical Advice 07 Condition: Good - Discharge Diagnosis/Problem(s) (1) Alcohol withdrawal syndrome SNOMED Code(s): 541506158 ICD Code: F10.239 - ALCOHOL DEPENDENCE WITH WITHDRAWAL, UNSPECIFIED Status : Acute Current Visit: Yes Qualifiers: Complication of substance-induced condition: uncomplicated Qualified Code(s ): F10.230 - Alcohol dependence with withdrawal, uncomplicated (2) Alcohol abuse SNOMED Code(s): 28350305 ICD Code: F10.10 - ALCOHOL ABUSE, UNCOMPLICATED Status: Acute Current Visit: No (3) Seizure SNOMED Code(s): 81475850 ICD Code: R56.9 - UNSPECIFIED CONVULSIONS Status: Acute Current Visit: No - Patient Summary/Data Consults: Consultations 10/27/17 17:48 Consult to Sterile Supervisor [CONS] Routine 10/28/17 09:00 Consult to Physician [CONS] Routine 10/30/17 10:00 Consult for Substance Abuse [CONS] Routine 10/30/17 11:35 PT Evaluation and Treatment [CONS] Routine 10/30/17 11:36 OT Evaluation and Treatment [CONS] Routine - Discharge Plan Home Medications: Home Meds diphenhydrAMINE HCl [Sleep Aid] 25 mg PO BEDTIME 10/27/17 [History] Patient Handouts: Smoking Cessation, Tips for Success, [id number] Referrals: PCP,None [Primary Care Provider] - - General Info Date of Service: 10/27/17 Functional Status: Reports: Pain Controlled, Tolerating Diet, Ambulating, Urinating - Review of Systems General: Reports: No Symptoms HEENT: Reports: No Symptoms Pulmonary: Reports: No Symptoms Cardiovascular: Reports: No Symptoms Gastrointestinal: Reports: No Symptoms Genitourinary: Reports: No Symptoms Musculoskeletal: Reports: No Symptoms Skin: Reports: No Symptoms Neurological: Reports: Difficulty Walking Psychiatric: Reports: Mood Lability, Anxiety, Agitation - Patient Data Vitals - Most Recent: Last Vital Signs Temp 36.4 C 10/30/17 08:00 Pulse 100 10/30/17 09:38 Resp 17 10/30/17 08:00 BP 108/90 10/30/17 09:38 Pulse Ox 100 10/30/17 08:00 Weight - Most Recent: 71.577 kg I&O - Last 24 hours: Intake & Output 10/29/17 10/30/17 10/30/17 22:59 06:59 14:59 Intake Total 2246 1936 400 Output Total 1501 850 Balance 745 1936 -450 Lab Results - Last 24 hrs: Laboratory Results - last 24 hr 10/30/17 10/30/17 Range/Units 05:24 05:24 WBC 4.89 (4.23-9.07) K/mm3 RBC 3.92 L (4.63-6.08) M/mm3 Hgb 13.1 L (13.7-17.5) gm/L Hct 38.2 L (40.1-51.0) % MCV 97.4 H (79.0-92.2) fl MCH 33.4 H (25.7-32.2) pg MCHC 34.3 (32.2-35.5) g/dl RDW Std Deviation 47.0 H (35.1-43.9) fL Plt Count 195 (163-337) K/mm3 MPV 9.6 (9.4-12.3) fl Neut % (Auto) 65.5 (34.0-67.9) % Lymph % (Auto) 17.4 L (21.8-53.1) % [place] % (Auto) 14.7 H (5.3-12.2) % Eos % (Auto) 1.0 (0.8-7.0) Baso % (Auto) 0.2 (0.1-1.2) % Neut # (Auto) 3.20 (1.78-5.38) K/mm3 Lymph # (Auto) 0.85 L (1.32-3.57) K/mm3 [place] # (Auto) 0.72 (0.30-0.82) K/mm3 Eos # (Auto) 0.05 (0.04-0.54) K/mm3 Baso # (Auto) 0.01 (0.01-0.08) K/mm3 Sodium 141 (136-145) mEq/L Potassium 3.9 (3.5-5.1) mEq/L Chloride 102 (98-107) mEq/L Carbon Dioxide 31 (21-32) mEq/L Anion Gap 11.9 (5-15) BUN 4 L (7-18) mg/dL Creatinine 0.8 (0.7-1.3) mg/dL Est Cr Clr Drug Dosing 119.29 mL/min Estimated GFR (MDRD) > 60 (>60) mL/min BUN/Creatinine Ratio 5.0 L (14-18) Glucose 124 H (74-106) mg/dL Calcium 8.9 (8.5-10.1) mg/dL Magnesium 1.2 L (1.8-2.4) mg/dl C-Reactive Protein 1.0 (<1.0) mg/dL Med Orders - Current: Current Medications Acetaminophen (Tylenol) 650 mg PO Q4H PRN PRN Reason: Pain Chlordiazepoxide HCl (Librium) 100 mg PO TID [facility] Enoxaparin Sodium (Lovenox) 40 mg SUBCUT DAILY [facility] Last Admin: 10/30/17 09:37 Dose: 40 mg Folic Acid (Folic Acid) 1 mg PO DAILY [facility] Last Admin: 10/30/17 09:38 Dose: 1 mg Haloperidol Lactate (Haldol) 4 mg IVPUSH Q8H PRN PRN Reason: restlessness Lorazepam 20 mg/ Dextrose/ (Water) 100 mls @ 15 mls/hr IV TITRATE [facility]; 3 MG/HR PRN Reason: Protocol Last Admin: 10/29/17 18:46 Dose: 3 mg/hr, 15 mls/hr Lorazepam (Ativan) 0 mg IVPUSH Q1H PRN; Protocol PRN Reason: withdrawl Last Admin: 10/30/17 09:58 Dose: 1 mg Lorazepam (Ativan) 8 mg IVPUSH Q4H PRN PRN Reason: Anxiety Lorazepam (Ativan) 6 mg IVPUSH Q2H [facility] Last Admin: 10/30/17 13:23 Dose: 6 mg Metoprolol Tartrate (Lopressor) 25 mg PO Q12HR [facility] Last Admin: 10/30/17 09:38 Dose: 25 mg Metoprolol Tartrate (Lopressor) 5 mg IVPUSH Q4H PRN PRN Reason: heart rate>120 Nicotine (Habitrol) 21 mg TRDERM DAILY [facility] Last Admin: 10/30/17 09:36 Dose: 21 mg Ondansetron HCl (Zofran) 4 mg IVPUSH Q8H PRN PRN Reason: Nausea Last Admin: 10/30/17 09:38 Dose: 4 mg Pantoprazole Sodium (Protonix Iv) 40 mg IVPUSH Q12H [facility] Last Admin: 10/30/17 09:40 Dose: 40 mg Quetiapine Fumarate (Seroquel) 50 mg PO BID [facility] Last Admin: 10/30/17 13:29 Dose: 50 mg Sodium Chloride (Saline Flush) 10 ml FLUSH ASDIRECTED PRN PRN Reason: Keep Vein Open Last Admin: 10/27/17 14:45 Dose: 10 ml Temazepam (Restoril) 15 mg PO BEDTIME PRN PRN Reason: Insomnia Last Admin: 10/29/17 23:29 Dose: 15 mg Thiamine HCl (Vitamin B-1) 100 mg PO DAILY [facility] Last Admin: 10/30/17 09:38 Dose: 100 mg Discontinued Medications Chlordiazepoxide HCl (Librium) 50 mg PO ONETIME ONE Stop: 10/27/17 14:33 Last Admin: 10/27/17 15:01 Dose: 50 mg Chlordiazepoxide HCl (Librium) 50 mg PO ONETIME ONE Stop: 10/27/17 16:04 Last Admin: 10/27/17 16:17 Dose: 50 mg Chlordiazepoxide HCl (Librium) 50 mg PO QID [facility] Chlordiazepoxide HCl (Librium) 75 mg PO TID [facility] Last Admin: 10/27/17 18:49 Dose: Not Given Chlordiazepoxide HCl (Librium) Confirm Administered Dose 75 mg .ROUTE .STK-MED ONE Stop: 10/27/17 18:43 Last Admin: 10/27/17 18:47 Dose: Not Given Chlordiazepoxide HCl (Librium) 75 mg PO TID [facility] Last Admin: 10/30/17 09:38 Dose: 75 mg Folic Acid (Folic Acid) 1 mg SUBCUT DAILY [facility] Last Admin: 10/29/17 10:11 Dose: Not Given Haloperidol Lactate (Haldol) 2 mg IVPUSH Q8H PRN PRN Reason: restlessness Last Admin: 10/30/17 12:09 Dose: 2 mg Sodium Chloride (Normal Saline) 1,000 mls @ 1,000 mls/hr IV ONETIME ONE Stop: 10/27/17 15:24 Last Admin: 10/27/17 14:59 Dose: 1,000 mls/hr Sodium Chloride (Normal Saline) Confirm Administered Dose 1,000 mls @ as directed .ROUTE .STK-MED ONE Stop: 10/27/17 16:17 Last Admin: 10/27/17 16:19 Dose: Not Given Sodium Chloride (Normal Saline) 1,000 mls @ 999 mls/hr IV ONETIME ONE Stop: 10/27/17 17:16 Last Admin: 10/27/17 16:18 Dose: 999 mls/hr Lorazepam 20 mg/ Sodium (Chloride) 100 mls @ 25 mls/hr IV TITRATE [facility]; 5 MG/HR PRN Reason: Protocol Sodium Chloride (Normal Saline) 1,000 mls @ 999 mls/hr IV ASDIRECTED [facility] Stop: 10/27/17 20:01 Last Admin: 10/27/17 23:16 Dose: 999 mls/hr Potassium Chloride/Sodium Chloride (Normal Saline With 20 Meq Kcl) 1,000 mls @ 150 mls/hr IV ASDIRECTED [facility] Last Admin: 10/30/17 11:08 Dose: 150 mls/hr Magnesium Sulfate 4 gm/ Premix 100 mls @ 50 mls/hr IV ONETIME ONE Stop: 10/30/17 11:59 Last Admin: 10/30/17 12:51 Dose: Not Given Magnesium Sulfate 2 gm/ Premix 50 mls @ 50 mls/hr IV Q1H [facility] Stop: 10/30/17 12:59 Last Admin: 12/16/17 12:04 Dose: 50 mls/hr Influenza Virus Vaccine (Flulaval Quad [id number]) 60 mcg IM .ONCE ONE Stop: 10/28/17 09:01 Lorazepam (Ativan) 2 mg IVPUSH ONETIME ONE Stop: 10/27/17 14:32 Last Admin: 10/27/17 15:00 Dose: 2 mg Lorazepam (Ativan) 4 mg IVPUSH ONETIME ONE Stop: 10/27/17 16:04 Last Admin: 10/27/17 16:19 Dose: 4 mg Lorazepam (Ativan) 6 mg IVPUSH ONETIME ONE Stop: 10/27/17 16:42 Last Admin: 10/27/17 16:57 Dose: 6 mg Lorazepam (Ativan) 8 mg IVPUSH ONETIME ONE Stop: 10/27/17 18:17 Last Admin: 10/27/17 18:27 Dose: 8 mg Lorazepam (Ativan) 8 mg IVPUSH Q2H PRN PRN Reason: Anxiety Lorazepam (Ativan) 6 mg IVPUSH Q2H [facility] Pneumococcal Polyvalent Vaccine (Pneumovax 23) 0.5 ml SUBCUT .ONCE ONE Stop: 10/28/17 08:39 Thiamine HCl (Vitamin B-1) 100 mg IV DAILY [facility] Last Admin: 10/29/17 10:11 Dose: Not Given - Exam Quality Assessment: Reports: DVT Prophylaxis General: Reports: Alert, Oriented (self, place), Mild Distress HEENT: Reports: Pupils Equal, Pupils Reactive, EOMI Neck: Reports: Supple, Trachea Midline Lungs: Reports: Normal Respiratory Effort Cardiovascular: Reports: Regular Rate, Regular Rhythm GI/Abdominal Exam: Normal Bowel Sounds, Soft, Non-Tender, No Distention (Male) Exam: Deferred Rectal (Males) Exam: Deferred Back Exam: Reports: Normal Inspection Extremities: Normal Inspection Skin: Reports: Warm Neurological: Reports: Normal Speech Psy/Mental Status: Reports: Labile Mood, Anxious, Agitated *Q Meaningful Use (DIS) - VTE *Q VTE Criteria *Q: - Stroke *Q Stroke Criteria *Q: - AMI *Q AMI Criteria *Q:
[2017-10-30 14:57] VITALS: BP 108/79
--- NOTE | 2017-10-31 02:09 | CONS ---
CONSULTING PHYSICIAN: Antoine Du LAC DATE OF CONSULTATION: 10/31/2017 TIME: 12:57 a.m. The patient is a 42-year-old male admitted to [facility] on 10/27/2017 and alcohol and drug consultation was requested by his medical treatment team. SOURCE OF INFORMATION: Hospital records, background research, prescription drug monitoring report, and medical treatment team report. HISTORY OF PRESENT ILLNESS: The patient is a 42-year-old male who was brought to [facility] by the [facility]'s department for alcohol withdrawal. The patient had been arrested for DUI on 10/26/2017 and was experiencing withdrawal symptoms while incarcerated. His withdrawal symptoms required medical attention. His ANTONETTE upon admission was 0.05. The patient reports to the emergency room staff having a history of severe withdrawals and accompanying alcohol-related tonic-colonic seizures. Precaution was taken by law enforcement as the patient was incarcerated a year ago on 12/23/2015 and experienced a generalized tonic-clonic seizure secondary to alcohol withdrawal. He had been transported to [facility] on that occasion as well. On that admission, 12/23/2015, the patient reported drinking 18 beers daily. On this admission, 10/29/2017, the patient is reporting drinking an 18-pack of beer plus a 1.75 bottle of Tequila on a regular if not daily basis. In addition, the patient reports that he hurt his back and has been taking pain medication. Prescription drug monitoring report was pulled indicating that the patient was prescribed hydrocodone acetaminophen 5-325, 20 count on 07/05/2017 and 30 count on 08/05/2017 and 09/02/2017. It may be his daily alcohol consumption is also including narcotics in combination. The patient's liver enzymes appeared to be elevated on his last admission in 2015 with an AST of 186 and an ALT of 193. On this admission, a year later, his AST is 214 and ALT is 206, which may indicate continued negative hepatic consequences. Currently, the patient is unemployed and living on disability. He is and has been having difficulty with child custody and visitation issues causing him legal offenses including disorderly conduct and harassment. The patient has consistently been reporting since his 1st admission in 2012, drinking approximately up to 18 beers and 1.75 of Tequila on a regular basis. He has had a period of sobriety in his life. He reports that he participated in a residential treatment program at [facility] and was able to stay sober for years, however, it appears that his sobriety has been lost in the past several years. MEDICAL HISTORY: The patient is reporting that he has multiple sclerosis. ASAM DIMENSIONS: Dimension 1: Score 3: The patient tolerates and manjula with withdrawal discomfort poorly, may have severe intoxication such that he endangers himself or others. He displays severe signs and symptoms of withdrawal including tonic- colonic seizures. Dimension 2: Score 2: The patient has difficulty tolerating and coping with physical problems. He has multiple sclerosis and is drinking despite the medical condition. Dimension 3: Score 2+: The patient appears to have difficulty with impulse control and lacks coping skills. He appears to have difficulty functioning in significant life areas and may have a mental health diagnosis. He seems to be ambivalent about the safety of himself or others. However, he is able to participate in most treatment activities. Dimension 4: Score 4: The patient is vehemently oppositional to treatment and appears to be unwilling to explore change or is in total denial of his illness and its implications such that he may be a threat to himself or others. Dimension 5: Score 3+: The patient has very little recognition and understanding of relapse and recidivism issues or the negative impact of his substance use. He appears to have very little coping skills to arrest his addiction or prevent relapse and he has a high vulnerability for further substance use and mental health problems. Dimension 6: Score 3+: The patient is not engaged in structured meaningful activity and seems to have a chronically antagonistic significant other. He is currently involved in the criminal justice system. DIAGNOSES: The patient meets DSM-5 criteria for the following diagnosis; F10.20, alcohol use disorders, severe; F10.229, alcohol intoxication; F10.239, alcohol withdrawal without perceptual disturbance; F17.200 tobacco use disorder, severe; F11.20, opioid use disorder, mild, rule out. ASSESSMENT SUMMARY: With regard to his hospital admissions, his 1st alcohol-related hospital admission, he was offered assistance for continued substance abuse care and placement in a residential facility on a voluntary basis, as the patient verbalized he was amenable to treatment. His admission ANTONETTE was 0.35, which was concerning. However, his desire for treatment precluded a petition for involuntary commitment. However, after discharge from the hospital, he did not follow through with pursuing treatment. His 2nd alcohol-related admission to [facility], he was treated for withdrawal after being transported from [facility] by the ophthalmic aide's department as he was incarcerated at that time. He was treated and returned to the correctional Center. This 3rd admission, the patient is demonstrating behavior that warrant professional intervention. He is presenting with late stage III alcoholism, manifesting with psychological and physical dependence, impairment in significant life areas as he appears to have lost almost everything in his life because of alcohol, vehement denial of his illness and implications, drinking despite serious medical complication with multiple sclerosis and most concerning pervasive ambivalent for the safety of others or himself as he is driving either under the influence or driving with the risk of an alcohol- related seizure or in combination use of alcohol and narcotics. He also verbalizes to staff that driving under the influence "is worth it," as he "doesn't care if he kills someone." The patient is meeting ASAM criteria for a level 3.7, medically monitored inpatient treatment. RECOMMENDATION: Level 3.7, medically monitored inpatient treatment at the [facility] or any other admitting facility. A petition for involuntary commitment was executed on 10/31/2017 at approximately 6 p.m. JACOBY /[id number]
== END 2017-10-30 14:25 | disposition left against medical advice (07) | DRG 770 ==
LOC: JD.ED 13:51 → JD.ICU 17:21 → UNDOADMIN 17:21 → JD.ICU 17:36
PROVIDERS: ADMIT Internal Medicine Cardiovascular Disease; ATTEND Internal Medicine Cardiovascular Disease
DX: F10.229 Alcohol dependence with intoxication, unspecified (principal); F17.210 Nicotine dependence, cigarettes, uncomplicated; F11.20 Opioid dependence, uncomplicated; Z88.0 Allergy status to penicillin; R56.9 Unspecified convulsions; Y90.0 Blood alcohol level of less than 20 mg/100 ml; Z53.21 Procedure and treatment not carried out due to patient leaving prior to being seen by health care provider
CPT/HCPCS: 36415; 71010; 71010-26; 80048; 80053; 80306; 81003; 83735; 85025; 86140; 93005; 93010; 96361; 96374; 96376; 99284-25; 99285-25; A9270-GY; C9113; G0480; J1630; J1650; J2060; J2405; J3411; J3475; J3480; J7040; J7050; J7060

== ENCOUNTER 2017-10-30 20:01 | Emergency (ER) | payer BC ==
[2017-10-30] MEDS ORDERED: Sodium Chloride 0.9% 1,000 ML IV SCH (20:15)
[2017-10-30 20:18] VITALS: BP 109/79
--- NOTE | 2017-10-30 20:22 | EDM.PDOCBH ---
ED HPI GENERAL MEDICAL PROBLEM - General Chief Complaint: Drug or Alcohol Abuse Stated Complaint: MEDICAL CLEARANCE Time Seen by Provider: 10/30/17 20:03 Source of Information: Reports: Patient History Limitations: Reports: No Limitations - History of Present Illness INITIAL COMMENTS - FREE TEXT/NARRATIVE: This is a 42-year-old male. He was admitted to the hospital on the due to alcohol dependency and alcohol withdrawal symptoms. He was originally brought to the ER by the police for a DUI. He was in the ICU placed on an Ativan drip and seemed to do well until today when he decided he wanted to go to care home rather than be in the hospital. So he left AMA with the extruding department supervisor department. While he was in the ICU he was seen by [facility] and by our social senior manager creative services because he was expressing some homicidal ideation to the counselor and also indicated to the nurses that he would go out and drink again and drive again and he didn't care if he hurt anybody. When they saw him they went ahead and committed him to [place] due to his chemical dependency and his mental health disorder. He comes back this evening with the territory outside sales manager from the care home to be medically cleared and then transported to [place]. This morning's labs showed a magnesium of 1.2 but he did get 2 g of magnesium before he left AMA. The patient states that he feels really weak and shaky but he is oriented 3 and appears to be in no acute distress. He does have a history of alcohol withdrawal seizures. My concern is he has been off his alcohol now for about 72 hours and this should be the prime time to have a seizure even though he is not exhibiting any severe symptoms of alcohol withdrawal or DTs. Lower Back Pain Score (Numeric/FACES): 8 - Related Data Allergies Allergy/AdvReac Type Severity Reaction Status Date / Time Penicillins Allergy Other Verified 10/27/17 14:10 Home Meds: Home Meds diphenhydrAMINE HCl [Sleep Aid] 25 mg PO BEDTIME 10/27/17 [History] Past Medical History - Past Health History Medical/Surgical History: Denies Medical/Surgical History Respiratory History: Reports: Other (See Below) Other Respiratory History: "lung surgery because it kept collapsing." Musculoskeletal History: Reports: Fracture Other Musculoskeletal History: "fractured spine" Psychiatric History: Reports: Addiction Social & Family History - Family History Family Medical History: Noncontributory - Tobacco Use Smoking Status *Q: Current Every Day Smoker Years of Tobacco use: 20 Packs/Tins Daily: 0.1 Used Tobacco, but Quit: No Second Hand Smoke Exposure: Yes - Caffeine Use Caffeine Use: Reports: None - Alcohol Use Days Per Week of Alcohol Use: 7 Number of Drinks Per Day: 18 Total Drinks Per Week: 126 - Recreational Drug Use Recreational Drug Use: No Recreational Drug Type: Reports: Oxycodone ED ROS GENERAL - Review of Systems Review Of Systems: See Below Constitutional: Reports: Malaise, Weakness, Fatigue. Denies: Fever, Chills HEENT: Reports: No Symptoms Respiratory: Denies: Shortness of Breath, Cough Cardiovascular: Denies: Chest Pain Endocrine: Reports: Fatigue GI/Abdominal: Denies: Abdominal Pain, Nausea, Vomiting Musculoskeletal: Reports: Other (Feels achy) Skin: Reports: No Symptoms Neurological: Reports: Dizziness, Difficulty Walking, Weakness Psychiatric: Reports: Depression Hematologic/Lymphatic: Reports: No Symptoms ED EXAM, BEHAVIORAL HEALTH - Physical Exam Exam: See Below Exam Limited By: No Limitations General Appearance: Alert, WD/WN, No Apparent Distress Eye Exam: Bilateral Eye: Normal Inspection Ears: Normal External Exam, Normal Canal, Normal TMs Nose: Normal Inspection Throat/Mouth: Normal Inspection, Normal Lips, Normal Oropharynx, No Airway Compromise, Other (His mucous membranes are somewhat tachycardia but not super moist, teeth are in fair repair) Head: Normocephalic Neck: Supple Respiratory/Chest: No Respiratory Distress, Lungs Clear, Normal Breath Sounds Cardiovascular: Regular Rate, Rhythm, No Murmur GI/Abdominal: Soft, Non-Tender Back Exam: Full Range of Motion Extremities: Normal Inspection, Normal Range of Motion, Other (Patient has a shuffling gait feels very weak) Neurological: Alert, Oriented x 3 Psychiatric: Alert, Oriented, Depressed Mood, Flat Affect. No: Restless, Tearful, Agitated, Suicidal Plan Skin Exam: Warm, Dry COURSE, BEHAVIORAL HEALTH COMP - Course Vital Signs: Last Vital Signs Temp 97.8 F 10/30/17 20:16 Pulse 107 H 10/30/17 20:16 Resp 20 10/30/17 20:16 BP 109/79 10/30/17 20:16 Pulse Ox 98 10/30/17 20:16 Orders, Labs, Meds: Active Orders 24 hr Category Date Time Status Sodium Chloride 0.9% [Normal Saline] 1,000 ml Med 10/30/17 20:15 Active IV ASDIRECTED Medication Orders Sodium Chloride (Normal Saline) 1,000 mls @ 500 mls/hr IV ASDIRECTED SOLEDAD Last Admin: 10/30/17 20:20 Dose: 500 mls/hr Laboratory Tests 10/30/17 10/30/17 10/30/17 Range/Units 20:21 20:21 20:25 WBC 4.32 (4.23-9.07) K/mm3 RBC 3.83 L (4.63-6.08) M/mm3 Hgb 12.9 L (13.7-17.5) gm/L Hct 37.4 L (40.1-51.0) % MCV 97.7 H (79.0-92.2) fl MCH 33.7 H (25.7-32.2) pg MCHC 34.5 (32.2-35.5) g/dl RDW Std Deviation 47.4 H (35.1-43.9) fL Plt Count 190 (163-337) K/mm3 MPV 9.0 L (9.4-12.3) fl Neut % (Auto) 57.1 (34.0-67.9) % Lymph % (Auto) 21.3 L (21.8-53.1) % [place] % (Auto) 18.8 H (5.3-12.2) % Eos % (Auto) 1.2 (0.8-7.0) Baso % (Auto) 0.2 (0.1-1.2) % Neut # (Auto) 2.47 (1.78-5.38) K/mm3 Lymph # (Auto) 0.92 L (1.32-3.57) K/mm3 [place] # (Auto) 0.81 (0.30-0.82) K/mm3 Eos # (Auto) 0.05 (0.04-0.54) K/mm3 Baso # (Auto) 0.01 (0.01-0.08) K/mm3 Manual Slide Review Normal smear Sodium 141 (136-145) mEq/L Potassium 3.6 (3.5-5.1) mEq/L Chloride 102 (98-107) mEq/L Carbon Dioxide 30 (21-32) mEq/L Anion Gap 12.6 (5-15) BUN 6 L (7-18) mg/dL Creatinine 1.0 (0.7-1.3) mg/dL Est Cr Clr Drug Dosing 96.77 mL/min Estimated GFR (MDRD) > 60 (>60) mL/min BUN/Creatinine Ratio 6.0 L (14-18) Glucose 122 H (74-106) mg/dL Calcium 8.9 (8.5-10.1) mg/dL Magnesium 1.9 (1.8-2.4) mg/dl Total Bilirubin 0.5 (0.2-1.0) mg/dL AST 75 H (15-37) U/L ALT 112 H (16-63) U/L Alkaline Phosphatase 97 (46-116) U/L Total Protein 6.5 (6.4-8.2) g/dl Albumin 3.2 L (3.4-5.0) g/dl Globulin 3.3 gm/dL Albumin/Globulin Ratio 1.0 (1-2) Medications Generic Name Dose Route Start Last Admin Trade Name Freq PRN Reason Stop Dose Admin Sodium Chloride 1,000 mls @ 500 mls/hr 10/30/17 20:15 10/30/17 20:20 Normal Saline IV 500 mls/hr ASDIRECTED SOLEDAD Administration Re-Assessment/Re-Exam: Patient has been doing fine since he's been here in the ER. I spoke to Dr. Pagan in [facility] in [place] and she accepts the patient in transport for further evaluation and treatment. He is committed by her social media marketer and the [facility] filled out the committal paperwork. Departure - Departure Time of Disposition: 22:04 Disposition: DC/Tfer to Psych Hosp/Unit 65 Condition: Good Clinical Impression: Alcohol abuse, History of homicidal ideation Alcohol withdrawal syndrome Qualifiers: Complication of substance-induced condition: uncomplicated Qualified Code(s): F10.230 - Alcohol dependence with withdrawal, uncomplicated Alcohol withdrawal seizure Qualifiers: Complication of substance-induced condition: uncomplicated Qualified Code(s): F10.230 - Alcohol dependence with withdrawal, uncomplicated - Discharge Information Referrals: PCP,None [Primary Care Provider] - Forms: ED Department Discharge Additional Instructions: Patient will be transported by ambulance with an IV and IV medications in the event that he has a alcohol withdrawal seizure, he will be accompanied by the [facility]'s Department, he is accepted by Dr. Pagan at the [facility] in [place]. - My Orders Last 24 Hours: My Active Orders 10/30/17 20:15 Sodium Chloride 0.9% [Normal Saline] 1,000 ml IV ASDIRECTED - Assessment/Plan Last 24 Hours: My Active Orders 10/30/17 20:15 Sodium Chloride 0.9% [Normal Saline] 1,000 ml IV ASDIRECTED
== END 2017-10-30 22:30 ==
LOC: JD.ED 20:01
DX: F10.230 Alcohol dependence with withdrawal, uncomplicated (principal); R56.9 Unspecified convulsions; F17.210 Nicotine dependence, cigarettes, uncomplicated; Z88.0 Allergy status to penicillin
CPT/HCPCS: 36415; 80053; 83735; 85025; 96360; 96361; 99284; J7040; 99282

== ENCOUNTER 2018-01-05 23:22 | Emergency (ER) | payer BC ==
[2018-01-05 23:31] VITALS: BP 140/98
[2018-01-05] MEDS ORDERED: Aspirin 81 MG Tab.Chew PO ONE (23:52)
[2018-01-05] MEDS ORDERED: Alum Hydrox/Mag Hydrox/Simeth 30 ML, Lidocaine 2% 15 ML PO ONE ×2 (23:52)
--- NOTE | 2018-01-06 00:15 | EDM.PDOC ---
ED HPI GENERAL MEDICAL PROBLEM - General Chief Complaint: Cardiovascular Problem Stated Complaint: chest pain Time Seen by Provider: 01/05/18 23:40 - History of Present Illness INITIAL COMMENTS - FREE TEXT/NARRATIVE: 42-year-old male presents emergency room with chest pain. This pain is been present for about 2 and half to 3 hours it started with the patient at rest he describes it as a substernal burning pressure pain. It has radiated into his left arm at one point. The patient's been drinking some beers tonight he says 3 or 4, denies drugs. The patient smokes 5 or 6 cigarettes a day. The patient drinks daily. Patient has no history of coronary vascular disease however his mother at age 62 of a heart problem Treatments BUFFING TURNER AND COUNTER: Reports: NSAIDS Chest Pain Score (Numeric/FACES): 10 - Related Data Allergies Allergy/AdvReac Type Severity Reaction Status Date / Time Penicillins Allergy Other Verified 01/05/18 23:27 Home Meds: Home Meds Lansoprazole [Prevacid] 30 mg PO DAILY #30 cap.er 01/06/18 [Rx] Sucralfate [Carafate] 1 gm PO Q6H #30 ml 01/06/18 [Rx] Past Medical History - Past Health History Medical/Surgical History: Denies Medical/Surgical History Respiratory History: Reports: Other (See Below) Other Respiratory History: "lung surgery because it kept collapsing." Musculoskeletal History: Reports: Fracture Other Musculoskeletal History: "fractured spine" Psychiatric History: Reports: Addiction Social & Family History - Family History Family Medical History: Noncontributory - Tobacco Use Smoking Status *Q: Current Every Day Smoker Years of Tobacco use: 20 Packs/Tins Daily: 0.5 Used Tobacco, but Quit: No Second Hand Smoke Exposure: Yes - Caffeine Use Caffeine Use: Reports: None - Alcohol Use Days Per Week of Alcohol Use: 7 Number of Drinks Per Day: 18 Total Drinks Per Week: 126 - Recreational Drug Use Recreational Drug Use: No Recreational Drug Type: Reports: Oxycodone Other Recreational Drug Type: last was well over 1 yr ED ROS GENERAL - Review of Systems Review Of Systems: See Below Constitutional: Reports: No Symptoms HEENT: Reports: No Symptoms Respiratory: Reports: No Symptoms Cardiovascular: Reports: Chest Pain Endocrine: Reports: No Symptoms GI/Abdominal: Reports: Abdominal Pain (Upper abdominal pain) : Reports: No Symptoms Musculoskeletal: Reports: No Symptoms Skin: Reports: No Symptoms Neurological: Reports: No Symptoms ED EXAM, GENERAL - Physical Exam Exam: See Below Exam Limited By: No Limitations General Appearance: Alert, No Apparent Distress, Other (Faint smell of alcohol) Head: Atraumatic, Normocephalic Respiratory/Chest: No Respiratory Distress, Lungs Clear, Normal Breath Sounds Cardiovascular: Regular Rate, Rhythm, No Edema, No Murmur GI/Abdominal: Normal Bowel Sounds, Soft, Other (He has some mild epigastric discomfort) Back Exam: Normal Inspection, Full Range of Motion. No: CVA Tenderness (L), CVA Tenderness (R) Extremities: Normal Inspection, No Pedal Edema Neurological: Alert, Oriented, Normal Cognition, Other (He has been drinking) EKG INTERPRETATION Rhythm: NSR [place]: Normal P-Wave: Present QRS: Normal ST-T: Normal QT: Normal Comparison: No Change EKG Interpretation Comments: Normal EKG artifactual change V1 Course - Vital Signs Last Recorded V/S: Last Vital Signs Temp 35.9 C 01/05/18 23:28 Pulse 90 01/05/18 23:28 Resp 18 01/05/18 23:28 BP 140/98 H 01/05/18 23:28 Pulse Ox 97 01/05/18 23:28 - Orders/Labs/Meds Orders: Active Orders 24 hr Category Date Time Status EKG Documentation Completion [RC] ASDIRECTED Care 01/05/18 23:33 Active Chest 1V Frontal [CR] Stat Exams 01/05/18 23:54 Taken EKG 12 Lead [EK] Stat Ther 01/05/18 23:33 Ordered Labs: Laboratory Tests 01/05/18 01/05/18 01/05/18 Range/Units 23:30 23:30 23:30 WBC 15.01 H (4.23-9.07) K/mm3 RBC 4.57 L (4.63-6.08) M/mm3 Hgb 15.5 (13.7-17.5) gm/L Hct 44.6 (40.1-51.0) % MCV 97.6 H (79.0-92.2) fl MCH 33.9 H (25.7-32.2) pg MCHC 34.8 (32.2-35.5) g/dl RDW Std Deviation 50.0 H (35.1-43.9) fL Plt Count 330 (163-337) K/mm3 MPV 8.8 L (9.4-12.3) fl Neutrophils % (Manual) 84 H (40-60) % Band Neutrophils % 0 (0-10) % Lymphocytes % (Manual) 14 L (20-40) % Monocytes % (Manual) 1 L (2-10) % Eosinophils % (Manual) 1 (0.8-7.0) % Basophils % (Manual) 0 L (0.2-1.2) Platelet Estimate Adequate RBC Morph Comment Normal PT 9.3 (8.0-13.0) SECONDS INR 0.87 APTT 28 (22-36) SECONDS Sodium 137 (136-145) mEq/L Potassium 3.9 (3.5-5.1) mEq/L Chloride 97 L (98-107) mEq/L Carbon Dioxide 27 (21-32) mEq/L Anion Gap 16.9 H (5-15) BUN 19 H (7-18) mg/dL Creatinine 1.4 H (0.7-1.3) mg/dL Est Cr Clr Drug Dosing 77.76 mL/min Estimated GFR (MDRD) 55 (>60) mL/min BUN/Creatinine Ratio 13.6 L (14-18) Glucose 121 H (74-106) mg/dL Calcium 8.2 L (8.5-10.1) mg/dL Total Bilirubin 0.4 (0.2-1.0) mg/dL AST 26 (15-37) U/L ALT 30 (16-63) U/L Alkaline Phosphatase 114 (46-116) U/L Troponin I < 0.017 (0.00-0.056) ng/mL Total Protein 7.4 (6.4-8.2) g/dl Albumin 3.5 (3.4-5.0) g/dl Globulin 3.9 gm/dL Albumin/Globulin Ratio 0.9 L (1-2) Urine Opiates Screen (NEGATIVE) Ur Buprenorphine Scrn (NEGATIVE) Ur Oxycodone Screen (NEGATIVE) Urine Methadone Screen (NEGATIVE) Ur Propoxyphene Screen (NEGATIVE) Ur Barbiturates Screen (NEGATIVE) Ur Tricyclics Screen (NEGATIVE) Ur Phencyclidine Scrn (NEGATIVE) Ur Amphetamine Screen (NEGATIVE) U Methamphetamines Scrn (NEGATIVE) U Benzodiazepines Scrn (NEGATIVE) U Cocaine Metab Screen (NEGATIVE) U Marijuana (THC) Screen (NEGATIVE) Ethyl Alcohol (0.00) gm% 01/05/18 01/06/18 Range/Units 23:30 00:45 WBC (4.23-9.07) K/mm3 RBC (4.63-6.08) M/mm3 Hgb (13.7-17.5) gm/L Hct (40.1-51.0) % MCV (79.0-92.2) fl MCH (25.7-32.2) pg MCHC (32.2-35.5) g/dl RDW Std Deviation (35.1-43.9) fL Plt Count (163-337) K/mm3 MPV (9.4-12.3) fl Neutrophils % (Manual) (40-60) % Band Neutrophils % (0-10) % Lymphocytes % (Manual) (20-40) % Monocytes % (Manual) (2-10) % Eosinophils % (Manual) (0.8-7.0) % Basophils % (Manual) (0.2-1.2) Platelet Estimate RBC Morph Comment PT (8.0-13.0) SECONDS INR APTT (22-36) SECONDS Sodium (136-145) mEq/L Potassium (3.5-5.1) mEq/L Chloride (98-107) mEq/L Carbon Dioxide (21-32) mEq/L Anion Gap (5-15) BUN (7-18) mg/dL Creatinine (0.7-1.3) mg/dL Est Cr Clr Drug Dosing mL/min Estimated GFR (MDRD) (>60) mL/min BUN/Creatinine Ratio (14-18) Glucose (74-106) mg/dL Calcium (8.5-10.1) mg/dL Total Bilirubin (0.2-1.0) mg/dL AST (15-37) U/L ALT (16-63) U/L Alkaline Phosphatase (46-116) U/L Troponin I (0.00-0.056) ng/mL Total Protein (6.4-8.2) g/dl Albumin (3.4-5.0) g/dl Globulin gm/dL Albumin/Globulin Ratio (1-2) Urine Opiates Screen Negative (NEGATIVE) Ur Buprenorphine Scrn Negative (NEGATIVE) Ur Oxycodone Screen Negative (NEGATIVE) Urine Methadone Screen Negative (NEGATIVE) Ur Propoxyphene Screen Negative (NEGATIVE) Ur Barbiturates Screen Negative (NEGATIVE) Ur Tricyclics Screen Negative (NEGATIVE) Ur Phencyclidine Scrn Negative (NEGATIVE) Ur Amphetamine Screen Negative (NEGATIVE) U Methamphetamines Scrn Negative (NEGATIVE) U Benzodiazepines Scrn Negative (NEGATIVE) U Cocaine Metab Screen Negative (NEGATIVE) U Marijuana (THC) Screen Presumptive positive H (NEGATIVE) Ethyl Alcohol 0.18 (0.00) gm% Meds: Medications Discontinued Medications Generic Name Dose Route Start Last Admin Trade Name Freq PRN Reason Stop Dose Admin Aspirin 324 mg 01/05/18 23:52 01/05/18 23:56 Aspirin PO 01/05/18 23:53 324 mg ONETIME ONE Administration Al Hydroxide/Mg Hydroxide 30 0 ml 01/05/18 23:52 01/05/18 23:56 ml/ Lidocaine HCl 15 ml PO 01/05/18 23:53 45 ml ONETIME ONE Administration Pantoprazole Sodium 40 mg 01/06/18 01:43 Protonix PO 01/06/18 01:44 ONETIME ONE Sucralfate 1 gm 01/06/18 00:55 01/06/18 01:00 Carafate PO 01/06/18 00:56 1 gm ONETIME ONE Administration Sucralfate Confirm 01/06/18 01:05 01/06/18 01:49 Carafate Administered 01/06/18 01:06 Not Given Dose 1 gm .ROUTE .STK-MED ONE - Re-Assessments/Exams Free Text/Narrative Re-Assessment/Exam: 01/06/18 01:44 Patient has done well in the emergency department he had good response from a GI cocktail knocked his pain down to almost nothing his pain did start to come back he had a dose of Carafate and this helped significantly with that right now his pain is minimal and he would like to go home did discuss checking a second troponin he would like to get going. Chest x-ray is nondiagnostic his heart score is 3 1 point for moderately suspicious history is EKG was normal for 0 points his age is less than 45 for 0 points 6 and he gets another 2 points for his family history. He will be scheduled for a stress Cardiolite, and both follow-up at the Hospital clinic for this. He'll be started on Prevacid and Carafate Departure - Departure Time of Disposition: 01:46 Disposition: Home, Self-Care 01 Clinical Impression: GERD (gastroesophageal reflux disease), Chest pain Prescriptions: Lansoprazole [Prevacid] 30 mg PO DAILY #30 cap.er Sucralfate [Carafate] 1 gm PO Q6H #30 ml Instructions: Food Choices for Gastroesophageal Reflux Disease, Adult, Easy-to- Read, Nonspecific Chest Pain, [id number] Referrals: PCP,None [Primary Care Provider] - Forms: ED Department Discharge Additional Instructions: Return to the emergency room with any questions problems worsening symptoms. You been started on 2 medications for stomach the first was Carafate he'll take one 4 times daily for 1 week. The second medication is Prevacid you'll take 30 mg once daily this works best taken 30-60 minutes before your morning meal. Push water near daily routine and diet decrease your alcohol intake. Take a baby aspirin, 81 mg 1 daily. You should be scheduled for cardiac stress test. They will be contacting you to get this done follow-up in the Hospital clinic a couple of days after this is done to get the results and for follow-up on your overall condition. There number is [phone] - My Orders Last 24 Hours: My Active Orders 01/05/18 23:33 EKG Documentation Completion [RC] ASDIRECTED EKG 12 Lead [EK] Stat 01/05/18 23:54 Chest 1V Frontal [CR] Stat - Assessment/Plan Last 24 Hours: My Active Orders 01/05/18 23:33 EKG Documentation Completion [RC] ASDIRECTED EKG 12 Lead [EK] Stat 01/05/18 23:54 Chest 1V Frontal [CR] Stat
[2018-01-06] MEDS ORDERED: Sucralfate Suspension 1 GM/10 ML Cup PO ONE (00:55)
[2018-01-06] MEDS ORDERED: Sucralfate Suspension 1 GM/10 ML Cup ONE (01:05)
[2018-01-06] MEDS ORDERED: Pantoprazole 40 MG Tab.CR PO ONE (01:43)
--- NOTE | 2018-01-06 06:02 | CR ---
Chest: Portable view of the chest was obtained. Comparison: Prior chest x-ray of 10/28/17. Mild atelectasis is seen within both lung bases. Lungs otherwise are clear. Heart is accentuated from portable technique. Tortuous thoracic aorta is seen. Bony structures are grossly intact. Impression: 1. Mild bibasilar atelectasis. 2. Nothing acute is otherwise seen on portable chest x-ray. Diagnostic code #2
== END 2018-01-06 02:13 | disposition home or self-care (01) ==
LOC: JD.ED 23:22
DX: K21.9 Gastro-esophageal reflux disease without esophagitis (principal); R07.9 Chest pain, unspecified; F17.210 Nicotine dependence, cigarettes, uncomplicated; Z88.0 Allergy status to penicillin; Z79.899 Other long term (current) drug therapy
CPT/HCPCS: 36415; 71045; 80053; 80306; 84484; 85025; 85610; 85730; 93005; 99285; A9270; G0480

== ENCOUNTER 2018-02-18 23:24 | Emergency (ER) | payer BC ==
[2018-02-18 23:35] VITALS: BP 140/109
--- NOTE | 2018-02-19 | EDM.PDOCBH ---
ED HPI GENERAL MEDICAL PROBLEM - General Chief Complaint: Drug or Alcohol Abuse Stated Complaint: DETOX URINE AND STOOL BLEEDING Time Seen by Provider: 02/18/18 23:40 Source of Information: Reports: Patient History Limitations: Reports: No Limitations - History of Present Illness INITIAL COMMENTS - FREE TEXT/NARRATIVE: This is a 42-year-old male. He comes tonight because he wants to be detoxed from alcohol. When I ask him why he says it is because all these things are going on and he needs to be off his alcohol. He has a history of alcohol abuse as well as alcohol withdrawal and he's been in this hospital several times for detox with Ativan drip. His last drink however was about 1 hour ago. He states he drinks about a case of beer a day. And for some reason that he will not tell me he needs to be detoxed now. He states he is going through withdrawal now because he has shaking and he is lightheaded. I explained to him and not unless he is in acute withdrawal that more than [facility] He needs to stay off his alcohol for at least 24 hours to have some withdrawal symptoms essentially before he can be admitted acutely into the hospital. I told him I would check some blood work on him regarding his electrolytes and magnesium. He also states he has a long history of having some blood in his urine and stool and he wants that worked up as well. I explained to him that normally that would be worked up as an outpatient and that is not something we would do here [facility]. If he is in acute withdrawal eventually and comes back to the ER and gets admitted then they might look at why he has some blood in his urine and stool. - Related Data Allergies Allergy/AdvReac Type Severity Reaction Status Date / Time Penicillins Allergy Other Verified 01/05/18 23:27 Home Meds: Home Meds . [No Known Home Meds] 02/18/18 [History] Past Medical History - Past Health History Medical/Surgical History: Denies Medical/Surgical History Respiratory History: Reports: Other (See Below) Other Respiratory History: "lung surgery because it kept collapsing." Musculoskeletal History: Reports: Fracture Other Musculoskeletal History: "fractured spine" Psychiatric History: Reports: Addiction Social & Family History - Family History Family Medical History: Noncontributory - Tobacco Use Smoking Status *Q: Current Every Day Smoker Years of Tobacco use: 25 Packs/Tins Daily: 0.5 Used Tobacco, but Quit: No Second Hand Smoke Exposure: Yes - Caffeine Use Caffeine Use: Reports: None - Alcohol Use Days Per Week of Alcohol Use: 7 Number of Drinks Per Day: 18 Total Drinks Per Week: 126 - Recreational Drug Use Recreational Drug Use: No Recreational Drug Type: Reports: Oxycodone Other Recreational Drug Type: last was well over 1 yr ED ROS GENERAL - Review of Systems Review Of Systems: See Below Constitutional: Denies: Fever, Chills HEENT: Reports: No Symptoms Respiratory: Reports: No Symptoms Cardiovascular: Reports: No Symptoms Endocrine: Reports: No Symptoms GI/Abdominal: Denies: Abdominal Pain, Diarrhea, Nausea, Vomiting : Reports: No Symptoms Musculoskeletal: Reports: No Symptoms Skin: Reports: No Symptoms Neurological: Reports: Other (Complains of shaking and lightheaded) Psychiatric: Reports: No Symptoms Hematologic/Lymphatic: Reports: No Symptoms ED EXAM, BEHAVIORAL HEALTH - Physical Exam Exam: See Below Exam Limited By: No Limitations General Appearance: Alert, WD/WN, No Apparent Distress Eye Exam: Bilateral Eye: Normal Inspection Ears: Normal External Exam, Normal Canal, Normal TMs Nose: Normal Inspection Throat/Mouth: Normal Inspection, Normal Lips, Normal Oropharynx, Normal Voice, No Airway Compromise, Other (Has a coated tongue) Head: Normocephalic Neck: Supple Respiratory/Chest: No Respiratory Distress, Lungs Clear, Normal Breath Sounds Cardiovascular: Regular Rate, Rhythm, No Murmur GI/Abdominal: Soft, Other (He denies any abdominal tenderness and no nausea or vomiting) Back Exam: Full Range of Motion Extremities: Normal Inspection, Normal Range of Motion Neurological: Alert, Normal Mood/Affect Psychiatric: Alert, Normal Affect, Normal Cognition, Oriented. No: Restless, Agitated Skin Exam: Warm, Dry COURSE, BEHAVIORAL HEALTH COMP - Course Vital Signs: Last Vital Signs Temp 98.1 F 02/18/18 23:32 Pulse 121 H 02/18/18 23:32 Resp BP 140/109 H 02/18/18 23:32 Pulse Ox 95 02/18/18 23:32 Orders, Labs, Meds: Laboratory Tests 02/18/18 02/18/18 Range/Units 23:59 23:59 WBC 7.51 (4.23-9.07) K/mm3 RBC 5.43 (4.63-6.08) M/mm3 Hgb 17.5 (13.7-17.5) gm/L Hct 50.4 (40.1-51.0) % MCV 92.8 H (79.0-92.2) fl MCH 32.2 (25.7-32.2) pg MCHC 34.7 (32.2-35.5) g/dl RDW Std Deviation 49.9 H (35.1-43.9) fL Plt Count 200 (163-337) K/mm3 MPV 8.9 L (9.4-12.3) fl Neut % (Auto) 57.2 (34.0-67.9) % Lymph % (Auto) 23.4 (21.8-53.1) % [place] % (Auto) 17.2 H (5.3-12.2) % Eos % (Auto) 1.1 (0.8-7.0) Baso % (Auto) 0.4 (0.1-1.2) % Neut # (Auto) 4.30 (1.78-5.38) K/mm3 Lymph # (Auto) 1.76 (1.32-3.57) K/mm3 [place] # (Auto) 1.29 H (0.30-0.82) K/mm3 Eos # (Auto) 0.08 (0.04-0.54) K/mm3 Baso # (Auto) 0.03 (0.01-0.08) K/mm3 Manual Slide Review Normal smear Sodium 139 (136-145) mEq/L Potassium 3.4 L (3.5-5.1) mEq/L Chloride 98 (98-107) mEq/L Carbon Dioxide 26 (21-32) mEq/L Anion Gap 18.4 H (5-15) BUN 5 L (7-18) mg/dL Creatinine 0.8 (0.7-1.3) mg/dL Est Cr Clr Drug Dosing 137.00 mL/min Estimated GFR (MDRD) > 60 (>60) mL/min BUN/Creatinine Ratio 6.3 L (14-18) Glucose 96 (74-106) mg/dL Calcium 9.4 (8.5-10.1) mg/dL Magnesium 2.3 (1.8-2.4) mg/dl Total Bilirubin 0.9 (0.2-1.0) mg/dL AST 83 H (15-37) U/L ALT 73 H (16-63) U/L Alkaline Phosphatase 99 (46-116) U/L Total Protein 8.0 (6.4-8.2) g/dl Albumin 4.1 (3.4-5.0) g/dl Globulin 3.9 gm/dL Albumin/Globulin Ratio 1.1 (1-2) Re-Assessment/Re-Exam: 02/19/2018 01:07 AM I spoke to the patient regarding his lab work. I indicated to him that everything looks good as including his hemoglobin despite whatever blood might be coming from his urine or stool and that this can be worked up as an outpatient with his family doctor at [facility] in [place]. I have encouraged him to stop drinking so that his alcohol level dropped to 0 and if he develops acute symptoms of alcohol withdrawal such as severe shaking elevated blood pressure elevated heart rate then returned to the ER for reevaluation. I also encouraged that he wants to do detox as an outpatient to contact the [facility] and he can walk in Wednesday at 8 AM for evaluation if he chooses. Departure - Departure Time of Disposition: 01:02 Disposition: Home, Self-Care 01 Condition: Fair Clinical Impression: Alcohol abuse - Discharge Information Instructions: Alcohol Use Disorder Referrals: PCP,Not In Area [Primary Care Provider] - Forms: ED Department Discharge Additional Instructions: I would encourage you to stop drinking and if your symptoms worsen especially with elevated heart rate or blood pressure or signs or symptoms of actual withdrawal return to the ER for reevaluation, if you decide you want to do detox as an outpatient then contact [facility] and you can see them Wednesday at 8 AM as a walk-in, return to the ER as needed
== END 2018-02-19 01:09 | disposition home or self-care (01) ==
LOC: JD.ED 23:24
DX: F10.239 Alcohol dependence with withdrawal, unspecified (principal); F17.210 Nicotine dependence, cigarettes, uncomplicated; Z88.0 Allergy status to penicillin
CPT/HCPCS: 36415; 80053; 83735; 85025; 99283; 99284

== ENCOUNTER 2018-04-16 18:39 | Emergency (ER) | payer BC, OTHER ==
[2018-04-16] MEDS ORDERED: Sodium Chloride 0.9% 1,000 ML IV ONE (19:29)
[2018-04-16] MEDS ORDERED: Sodium Chloride 0.9% 10 ML Syringe FLUSH PRN (19:30)
[2018-04-16] MEDS ORDERED: Ondansetron 4 MG/2 ML SDV IVPUSH ONE (19:30)
[2018-04-16] MEDS ORDERED: Ketorolac 30 MG/ML SDV IVPUSH ONE (19:30)
--- NOTE | 2018-04-16 21:05 | EDM.PDOC ---
ED HPI GENERAL MEDICAL PROBLEM - General Chief Complaint: Abdominal Pain Stated Complaint: ABDOMINAL PAIN Time Seen by Provider: 04/16/18 19:05 Source of Information: Reports: Patient, Old Records (recent ER records) History Limitations: Reports: No Limitations - History of Present Illness INITIAL COMMENTS - FREE TEXT/NARRATIVE: 42 year old male presents for evaluation and treatment of abdominal pain. Patient reports he has had abdominal pain for several months. Reports pain and pressure to the entire abdomen but worse in the epigastric area. Describes the pain as a constant, sharp, stabbing sensation. Reports associated symptoms of fevers, chills, diaphoresis, night sweats, decreased appetite, early satiety and vomiting. States he has had fevers but has not checked his temperature. Denies any constipation. Denies any hematemesis. Reports his last bowel movement was this morning; reports a brown liquid stools. Patient also reports he has had hematruia and blood stools for several months. He has not been evaluated for these. Patient is a known alcoholic and has been seen in the ER and admitted to the hospital on numerous occasions for alcohol related issues. States he had esophageal varices in the past. Reports his last drink was this morning. Reports he smokes about less than a pack a day. Patient was seen in the ER about 2 months ago. Instructed to follow-up with family medicine. Patient reports he has a primary care provider in [place] but he has not seen him for his. Abdomen Pain Score (Numeric/FACES): 10 - Related Data Allergies Allergy/AdvReac Type Severity Reaction Status Date / Time Penicillins Allergy Other Verified 01/05/18 23:27 Home Meds: Home Meds Sucralfate [Carafate] 1 gm PO Q6HR #20 tablet 04/16/18 [Rx] Past Medical History - Past Health History Medical/Surgical History: Denies Medical/Surgical History Respiratory History: Reports: Other (See Below) Other Respiratory History: "lung surgery because it kept collapsing." Musculoskeletal History: Reports: Fracture Other Musculoskeletal History: "fractured spine" Psychiatric History: Reports: Addiction Social & Family History - Family History Family Medical History: Noncontributory - Tobacco Use Smoking Status *Q: Current Every Day Smoker Years of Tobacco use: 20 Packs/Tins Daily: 0.5 - Caffeine Use Caffeine Use: Reports: Energy Drinks, Soda - Recreational Drug Use Recreational Drug Type: Reports: Marijuana/Hashish ED ROS GENERAL - Review of Systems Review Of Systems: See Below Constitutional: Reports: Fever, Chills, Malaise, Night Sweats, Diaphoresis, Decreased Appetite GI/Abdominal: Reports: Abdominal Pain (entire abdomen; greatest in the epigastric area), Bloody Stool (x several months), Nausea, Vomiting, Other ( reports feeling bloated). Denies: Hematemesis : Reports: Hematuria (x several months) ED EXAM, GI/ABD - Physical Exam Exam: See Below Exam Limited By: Intoxication (smells of etoh) General Appearance: Alert, WD/WN, No Apparent Distress Eyes: Bilateral: Normal Appearance Ears: Normal External Exam Nose: Normal Inspection Throat/Mouth: Normal Inspection, Normal Lips, Normal Teeth, Normal Gums, Normal Oropharynx, Normal Voice, No Airway Compromise Respiratory/Chest: No Respiratory Distress, Lungs Clear, Normal Breath Sounds Cardiovascular: Normal Peripheral Pulses, Regular Rate, Rhythm, No Murmur GI/Abdominal Exam: Normal Bowel Sounds, Soft, Rigid, Tender (generalized greatest in the epigastric area). No: Distended, Guarding, Rebound Neurological: Alert, Oriented, Normal Cognition, Normal Gait Psychiatric: Normal Affect, Normal Mood Skin Exam: Warm, Dry, Normal Color Course - Vital Signs Last Recorded V/S: Last Vital Signs Temp 98.0 F 04/16/18 18:55 Pulse 102 H 04/16/18 22:30 Resp 18 04/16/18 22:30 BP 112/92 H 04/16/18 22:30 Pulse Ox 100 04/16/18 22:30 - Orders/Labs/Meds Labs: Laboratory Tests 04/16/18 04/16/18 04/16/18 Range/Units 19:50 19:50 21:00 WBC 6.14 (4.23-9.07) K/mm3 RBC 5.53 (4.63-6.08) M/mm3 Hgb 18.3 H (13.7-17.5) gm/L Hct 53.1 H (40.1-51.0) % MCV 96.0 H (79.0-92.2) fl MCH 33.1 H (25.7-32.2) pg MCHC 34.5 (32.2-35.5) g/dl RDW Std Deviation 52.8 H (35.1-43.9) fL Plt Count 223 (163-337) K/mm3 MPV 9.2 L (9.4-12.3) fl Neutrophils % (Manual) 66 H (40-60) % Band Neutrophils % 0 (0-10) % Lymphocytes % (Manual) 29 (20-40) % Atypical Lymphs % 0 % Monocytes % (Manual) 4 (2-10) % Eosinophils % (Manual) 1 (0.8-7.0) % Basophils % (Manual) 0 L (0.2-1.2) Platelet Estimate Adequate Plt Morphology Comment Normal RBC Morph Comment Normal Sodium 143 (136-145) mEq/L Potassium 3.8 (3.5-5.1) mEq/L Chloride 103 (98-107) mEq/L Carbon Dioxide 27 (21-32) mEq/L Anion Gap 16.8 H (5-15) BUN 6 L (7-18) mg/dL Creatinine 1.0 (0.7-1.3) mg/dL Est Cr Clr Drug Dosing 109.60 mL/min Estimated GFR (MDRD) > 60 (>60) mL/min BUN/Creatinine Ratio 6.0 L (14-18) Glucose 103 (74-106) mg/dL Calcium 8.9 (8.5-10.1) mg/dL Magnesium 1.9 (1.8-2.4) mg/dl Total Bilirubin 1.1 H (0.2-1.0) mg/dL AST 91 H (15-37) U/L ALT 120 H (16-63) U/L Alkaline Phosphatase 105 (46-116) U/L Total Protein 8.4 H (6.4-8.2) g/dl Albumin 4.0 (3.4-5.0) g/dl Globulin 4.4 gm/dL Albumin/Globulin Ratio 0.9 L (1-2) Lipase 196 (73-393) U/L Urine Color (Yellow) Urine Appearance (Clear) Urine pH (5.0-8.0) Ur Specific [place] (1.005-1.030) Urine Protein (Negative) Urine Glucose (UA) (Negative) Urine Ketones (Negative) Urine Occult Blood (Negative) Urine Nitrite (Negative) Urine Bilirubin (Negative) Urine Urobilinogen (0.2-1.0) Ur Leukocyte Esterase (Negative) Urine RBC (0-5) /hpf Urine WBC (0-5) /hpf Ur Epithelial Cells (0-5) /hpf Urine Bacteria (FEW) /hpf Urine Mucus (FEW) /hpf Urine Opiates Screen Negative (NEGATIVE) Ur Buprenorphine Scrn Negative (NEGATIVE) Ur Oxycodone Screen Negative (NEGATIVE) Urine Methadone Screen Negative (NEGATIVE) Ur Propoxyphene Screen Negative (NEGATIVE) Ur Barbiturates Screen Negative (NEGATIVE) Ur Tricyclics Screen Negative (NEGATIVE) Ur Phencyclidine Scrn Negative (NEGATIVE) Ur Amphetamine Screen Negative (NEGATIVE) U Methamphetamines Scrn Negative (NEGATIVE) U Benzodiazepines Scrn Negative (NEGATIVE) U Cocaine Metab Screen Negative (NEGATIVE) U Marijuana (THC) Screen Presumptive positive H (NEGATIVE) Ethyl Alcohol 0.14 (0.00) gm% 04/16/18 Range/Units 21:01 WBC (4.23-9.07) K/mm3 RBC (4.63-6.08) M/mm3 Hgb (13.7-17.5) gm/L Hct (40.1-51.0) % MCV (79.0-92.2) fl MCH (25.7-32.2) pg MCHC (32.2-35.5) g/dl RDW Std Deviation (35.1-43.9) fL Plt Count (163-337) K/mm3 MPV (9.4-12.3) fl Neutrophils % (Manual) (40-60) % Band Neutrophils % (0-10) % Lymphocytes % (Manual) (20-40) % Atypical Lymphs % % Monocytes % (Manual) (2-10) % Eosinophils % (Manual) (0.8-7.0) % Basophils % (Manual) (0.2-1.2) Platelet Estimate Plt Morphology Comment RBC Morph Comment Sodium (136-145) mEq/L Potassium (3.5-5.1) mEq/L Chloride (98-107) mEq/L Carbon Dioxide (21-32) mEq/L Anion Gap (5-15) BUN (7-18) mg/dL Creatinine (0.7-1.3) mg/dL Est Cr Clr Drug Dosing mL/min Estimated GFR (MDRD) (>60) mL/min BUN/Creatinine Ratio (14-18) Glucose (74-106) mg/dL Calcium (8.5-10.1) mg/dL Magnesium (1.8-2.4) mg/dl Total Bilirubin (0.2-1.0) mg/dL AST (15-37) U/L ALT (16-63) U/L Alkaline Phosphatase (46-116) U/L Total Protein (6.4-8.2) g/dl Albumin (3.4-5.0) g/dl Globulin gm/dL Albumin/Globulin Ratio (1-2) Lipase (73-393) U/L Urine Color Dark yellow (Yellow) Urine Appearance Clear (Clear) Urine pH 5.5 (5.0-8.0) Ur Specific [place] > or = 1.030 (1.005-1.030) Urine Protein 3+ H (Negative) Urine Glucose (UA) Negative (Negative) Urine Ketones Negative (Negative) Urine Occult Blood 2+ H (Negative) Urine Nitrite Negative (Negative) Urine Bilirubin 1+ H (Negative) Urine Urobilinogen 0.2 (0.2-1.0) Ur Leukocyte Esterase Negative (Negative) Urine RBC 0-5 (0-5) /hpf Urine WBC 5-10 H (0-5) /hpf Ur Epithelial Cells 5-10 H (0-5) /hpf Urine Bacteria Rare (FEW) /hpf Urine Mucus Few (FEW) /hpf Urine Opiates Screen (NEGATIVE) Ur Buprenorphine Scrn (NEGATIVE) Ur Oxycodone Screen (NEGATIVE) Urine Methadone Screen (NEGATIVE) Ur Propoxyphene Screen (NEGATIVE) Ur Barbiturates Screen (NEGATIVE) Ur Tricyclics Screen (NEGATIVE) Ur Phencyclidine Scrn (NEGATIVE) Ur Amphetamine Screen (NEGATIVE) U Methamphetamines Scrn (NEGATIVE) U Benzodiazepines Scrn (NEGATIVE) U Cocaine Metab Screen (NEGATIVE) U Marijuana (THC) Screen (NEGATIVE) Ethyl Alcohol (0.00) gm% Meds: Medications Discontinued Medications Generic Name Dose Route Start Last Admin Trade Name Freq PRN Reason Stop Dose Admin Clindamycin HCl 450 mg 04/16/18 21:46 Cleocin PO 04/16/18 21:47 NOW STA Clindamycin HCl 450 mg 04/16/18 21:46 Cleocin PO 04/16/18 21:47 NOW STA Sodium Chloride 1,000 mls @ 999 mls/hr 04/16/18 19:29 04/16/18 19:51 Normal Saline IV 04/16/18 20:29 999 mls/hr ONETIME ONE Administration Ketorolac Tromethamine 30 mg 04/16/18 19:30 04/16/18 19:50 Toradol IVPUSH 04/16/18 19:31 30 mg ONETIME ONE Administration Ondansetron HCl 4 mg 04/16/18 19:30 04/16/18 19:50 Zofran IVPUSH 04/16/18 19:31 4 mg ONETIME ONE Administration Sodium Chloride 10 ml 04/16/18 19:30 04/16/18 19:51 Saline Flush FLUSH 10 ml ASDIRECTED PRN Administration Keep Vein Open - Radiology Interpretation Free Text/Narrative:: flat and upright abdominal xray shows no acute process. - Re-Assessments/Exams Free Text/Narrative Re-Assessment/Exam: 04/16/18 21:46 I reviewed the labs and imaging with the patient. Educated him he needs to followup with family med. He will likely need an EGD and colonscopy to further evaluate the source of his discomfort and other symptoms. He is asking for pain medication. Given the etoh on board I do not feel narcotics are a good option for him. Will prescribe carafate. Discharge instructions as documented. Departure - Departure Time of Disposition: 21:47 Disposition: Home, Self-Care 01 Condition: Fair Clinical Impression: Abdominal pain, Alcohol abuse, Gastritis, alcoholic - Discharge Information Prescriptions: Sucralfate [Carafate] 1 gm PO Q6HR #20 tablet Instructions: Alcohol Use Disorder, Gastritis, Adult, [id number], Abdominal Pain, Adult, [id number] Referrals: PCP,None [Primary Care Provider] - Forms: ED Department Discharge Additional Instructions: We recommend that you stop drinking alcohol. He will have a happier and a healthier life if you stop drinking alcohol. Follow-up with your primary care provider; you will need to discuss further testing such as an upper endoscopy and a lower endoscopy if you continue to have symptoms. Take the Carafate 1 tab 4 times a day. This medication will help with your abdominal discomfort. make sure you are drinking plenty of fluids. Please return to the ER if your symptoms change or worsen.
[2018-04-16] MEDS ORDERED: Clindamycin HCl 150 MG Cap PO STA ×2 (21:46)
[2018-04-16 22:31] VITALS: BP 112/92
--- NOTE | 2018-04-18 07:00 | CR ---
Abdomen: Supine and upright views of the abdomen were obtained. Comparison: No previous study. Bowel gas pattern appears normal. No abnormal calcifications or soft tissue abnormality is seen. Bony structures appear within normal limits for the patient's age. Impression: 1. Nonspecific two-view abdominal study with nothing acute suspected. Diagnostic code #1
== END 2018-04-16 22:31 | disposition home or self-care (01) ==
LOC: JD.ED 18:39
DX: K29.20 Alcoholic gastritis without bleeding (principal); F10.129 Alcohol abuse with intoxication, unspecified; F17.210 Nicotine dependence, cigarettes, uncomplicated; Z88.0 Allergy status to penicillin; Y90.0 Blood alcohol level of less than 20 mg/100 ml
CPT/HCPCS: 36415; 74019; 80053; 80306; 81001; 83690; 83735; 85007; 85027; 96361; 96374; 96375; 99284; G0480; J1885; J2405; J7040; J7050

== ENCOUNTER 2019-01-09 19:29 | Inpatient (IN) | payer MEDICAID, OTHER ==
[2019-01-09] MEDS ORDERED: Sodium Chloride 0.9% 1,000 ML IV STA (20:07)
[2019-01-09] MEDS ORDERED: Sodium Chloride 0.9% 10 ML Syringe FLUSH PRN (20:07)
[2019-01-09] MEDS ORDERED: Ondansetron 4 MG/2 ML SDV IVPUSH ONE (20:07)
[2019-01-09] MEDS ORDERED: HYDROmorphone 1 MG/ML Syringe IVPUSH ONE ×2 (20:08→22:09)
[2019-01-09] MEDS ORDERED: Pantoprazole 40 MG Vial IVPUSH ONE (20:16)
--- NOTE | 2019-01-09 20:22 | EDM.PDOC ---
ED HPI GENERAL MEDICAL PROBLEM - General Chief Complaint: Abdominal Pain Stated Complaint: STOMACH PAIN/esophagus issues history of issues Time Seen by Provider: 01/09/19 19:41 Source of Information: Reports: Patient History Limitations: Reports: No Limitations - History of Present Illness INITIAL COMMENTS - FREE TEXT/NARRATIVE: The patient presents with severe upper abdominal pain, nausea and vomiting. The patient says he was here a few months ago for the same but not this bad. He was told it was gastritis. He was put on some medications but it did not help. The pain and vomiting is much worse today. He does admit to being a heavy drinker. He says in the past he had something rupture in his esophagus and he went to surgery and then the ICU. He does not recall what the problem was such as esophageal varicies. He says he has some redness in his emesis at times. He was vomiting when I went into the room and I did not see any blood. He has no fever but he does have chills. He has no chest pain or shortness of breath. He says he does have some dark stools at times. Onset: Gradual Duration: Day(s): Location: Reports: Abdomen Quality: Reports: Sharp Severity: Severe Improves with: Reports: None Worsens with: Reports: None Associated Symptoms: Reports: Fever/Chills, Nausea/Vomiting. Denies: Chest Pain , Cough, Headaches, Shortness of Breath Upper Abdomen Pain Score (Numeric/FACES): 6 - Related Data Allergies Allergy/AdvReac Type Severity Reaction Status Date / Time Penicillins Allergy Other Verified 06/13/18 09:33 Home Meds: Home Meds . [No Known Home Meds] 06/13/18 [History] Past Medical History - Past Health History Medical/Surgical History: Denies Medical/Surgical History Respiratory History: Reports: Other (See Below) Other Respiratory History: "lung surgery because it kept collapsing." Other Gastrointestinal History: blood in urine and stool Other Genitourinary History: hematuria Musculoskeletal History: Reports: Fracture Other Musculoskeletal History: "fractured spine" Psychiatric History: Reports: Addiction Social & Family History - Family History Family Medical History: Noncontributory - Tobacco Use Smoking Status *Q: Current Every Day Smoker Years of Tobacco use: 20 Packs/Tins Daily: 1 - Caffeine Use Caffeine Use: Reports: Coffee - Living Situation & Occupation Living situation: Reports: Occupation: Employed ED ROS GENERAL - Review of Systems Review Of Systems: See Below Constitutional: Reports: Chills. Denies: Fever HEENT: Reports: No Symptoms Respiratory: Reports: No Symptoms Cardiovascular: Reports: No Symptoms Endocrine: Reports: No Symptoms GI/Abdominal: Reports: Abdominal Pain, Black Stool, Nausea, Vomiting : Reports: No Symptoms Musculoskeletal: Reports: No Symptoms ED EXAM, GI/ABD - Physical Exam Exam: See Below Exam Limited By: No Limitations General Appearance: Alert, Mild Distress Ears: Normal External Exam Nose: Normal Inspection Head: Atraumatic, Normocephalic Neck: Normal Inspection Respiratory/Chest: No Respiratory Distress, Lungs Clear, Normal Breath Sounds Cardiovascular: Regular Rate, Rhythm, No Edema, No Murmur GI/Abdominal Exam: Soft, No Organomegaly, No Mass, Tender (Moderate to the upper abdomen) Course - Vital Signs Last Recorded V/S: Last Vital Signs Temp 99.0 F 01/09/19 19:41 Pulse 112 H 01/09/19 19:41 Resp 20 01/09/19 19:41 BP 140/103 H 01/09/19 19:41 Pulse Ox 97 01/09/19 19:41 - Orders/Labs/Meds Orders: Active Orders 24 hr Category Date Time Status EKG Documentation Completion [RC] ASDIRECTED Care 01/09/19 20:16 Active Peripheral IV Care [RC] . DIRECTED Care 01/09/19 20:07 Active Abdomen Pelvis w Cont [CT] Stat Exams 01/09/19 20:07 Taken Pantoprazole [ProTONIX IV] 80 mg Med 01/09/19 20:30 Active Sodium Chloride 0.9% [Normal Saline] 100 ml IV Q10H Sodium Chloride 0.9% [Saline Flush] Med 01/09/19 20:07 Active 10 ml FLUSH ASDIRECTED PRN ED Antiemetic Medication Reflex [OM.PC] Stat Oth 01/09/19 20:07 Ordered Peripheral IV Insertion Adult [OM.PC] Stat Oth 01/09/19 20:07 Ordered EKG 12 Lead [EK] Stat Ther 01/09/19 20:15 Ordered Medication Orders Pantoprazole Sodium 80 mg/ (Sodium Chloride) 100 mls @ 10 mls/hr IV Q10H [facility] Last Admin: 01/09/19 20:28 Dose: 10 mls/hr Sodium Chloride (Saline Flush) 10 ml FLUSH ASDIRECTED PRN PRN Reason: Keep Vein Open Last Admin: 01/09/19 20:25 Dose: 10 ml Labs: Laboratory Tests 01/09/19 01/09/19 01/09/19 Range/Units 20:20 20:20 20:20 WBC 7.29 (4.23-9.07) K/mm3 RBC 5.40 (4.63-6.08) M/mm3 Hgb 17.7 H (13.7-17.5) gm/L Hct 51.3 H (40.1-51.0) % MCV 95.0 H (79.0-92.2) fl MCH 32.8 H (25.7-32.2) pg MCHC 34.5 (32.2-35.5) g/dl RDW Std Deviation 44.6 H (35.1-43.9) fL Plt Count 153 L (163-337) K/mm3 MPV 9.9 (9.4-12.3) fl Neut % (Auto) 67.1 (34.0-67.9) % Lymph % (Auto) 15.5 L (21.8-53.1) % [place] % (Auto) 16.3 H (5.3-12.2) % Eos % (Auto) 0.3 L (0.8-7.0) Baso % (Auto) 0.3 (0.1-1.2) % Neut # (Auto) 4.89 (1.78-5.38) K/mm3 Lymph # (Auto) 1.13 L (1.32-3.57) K/mm3 [place] # (Auto) 1.19 H (0.30-0.82) K/mm3 Eos # (Auto) 0.02 L (0.04-0.54) K/mm3 Baso # (Auto) 0.02 (0.01-0.08) K/mm3 Manual Slide Review Normal smear Sodium 135 L (136-145) mEq/L Potassium 3.4 L (3.5-5.1) mEq/L Chloride 96 L (98-107) mEq/L Carbon Dioxide 26 (21-32) mEq/L Anion Gap 16.4 H (5-15) BUN 9 (7-18) mg/dL Creatinine 0.9 (0.7-1.3) mg/dL Est Cr Clr Drug Dosing 119.70 mL/min Estimated GFR (MDRD) > 60 (>60) mL/min BUN/Creatinine Ratio 10.0 L (14-18) Glucose 101 (74-106) mg/dL Calcium 8.9 (8.5-10.1) mg/dL Total Bilirubin 0.4 (0.2-1.0) mg/dL AST 42 H (15-37) U/L ALT 30 (16-63) U/L Alkaline Phosphatase 90 (46-116) U/L Troponin I < 0.017 (0.00-0.056) ng/mL Total Protein 7.9 (6.4-8.2) g/dl Albumin 3.1 L (3.4-5.0) g/dl Globulin 4.8 gm/dL Albumin/Globulin Ratio 0.7 L (1-2) Lipase 133 (73-393) U/L Urine Color (Yellow) Urine Appearance (Clear) Urine pH (5.0-8.0) Ur Specific [place] (1.005-1.030) Urine Protein (Negative) Urine Glucose (UA) (Negative) Urine Ketones (Negative) Urine Occult Blood (Negative) Urine Nitrite (Negative) Urine Bilirubin (Negative) Urine Urobilinogen (0.2-1.0) Ur Leukocyte Esterase (Negative) Urine RBC (0-5) /hpf Urine WBC (0-5) /hpf Ur Epithelial Cells (0-5) /hpf Urine Bacteria (FEW) /hpf Urine Mucus (FEW) /hpf Urine Opiates Screen (XCYXJA=109) Ur Buprenorphine Scrn (CUTOFF=10) Ur Oxycodone Screen (PNC7NF=256) Urine Methadone Screen (QDK3RS=942) Ur Propoxyphene Screen (FQFEAV=180) Ur Barbiturates Screen (QROCSZ=576) Ur Tricyclics Screen (NRDWZD=463) Ur Phencyclidine Scrn (CUTOFF=25) Ur Amphetamine Screen (TBSKNO=239) U Methamphetamines Scrn (SIXKUN=386) U Benzodiazepines Scrn (JWOECT=845) U Cocaine Metab Screen (CAHMAW=967) U Marijuana (THC) Screen (CUTOFF=50) Ethyl Alcohol 0.03 (0.00) gm% 01/09/19 01/09/19 Range/Units 22:15 22:15 WBC (4.23-9.07) K/mm3 RBC (4.63-6.08) M/mm3 Hgb (13.7-17.5) gm/L Hct (40.1-51.0) % MCV (79.0-92.2) fl MCH (25.7-32.2) pg MCHC (32.2-35.5) g/dl RDW Std Deviation (35.1-43.9) fL Plt Count (163-337) K/mm3 MPV (9.4-12.3) fl Neut % (Auto) (34.0-67.9) % Lymph % (Auto) (21.8-53.1) % [place] % (Auto) (5.3-12.2) % Eos % (Auto) (0.8-7.0) Baso % (Auto) (0.1-1.2) % Neut # (Auto) (1.78-5.38) K/mm3 Lymph # (Auto) (1.32-3.57) K/mm3 [place] # (Auto) (0.30-0.82) K/mm3 Eos # (Auto) (0.04-0.54) K/mm3 Baso # (Auto) (0.01-0.08) K/mm3 Manual Slide Review Sodium (136-145) mEq/L Potassium (3.5-5.1) mEq/L Chloride (98-107) mEq/L Carbon Dioxide (21-32) mEq/L Anion Gap (5-15) BUN (7-18) mg/dL Creatinine (0.7-1.3) mg/dL Est Cr Clr Drug Dosing mL/min Estimated GFR (MDRD) (>60) mL/min BUN/Creatinine Ratio (14-18) Glucose (74-106) mg/dL Calcium (8.5-10.1) mg/dL Total Bilirubin (0.2-1.0) mg/dL AST (15-37) U/L ALT (16-63) U/L Alkaline Phosphatase (46-116) U/L Troponin I (0.00-0.056) ng/mL Total Protein (6.4-8.2) g/dl Albumin (3.4-5.0) g/dl Globulin gm/dL Albumin/Globulin Ratio (1-2) Lipase (73-393) U/L Urine Color Yellow (Yellow) Urine Appearance Clear (Clear) Urine pH 6.0 (5.0-8.0) Ur Specific [place] 1.020 (1.005-1.030) Urine Protein 2+ H (Negative) Urine Glucose (UA) Negative (Negative) Urine Ketones Negative (Negative) Urine Occult Blood 1+ H (Negative) Urine Nitrite Negative (Negative) Urine Bilirubin Negative (Negative) Urine Urobilinogen 0.2 (0.2-1.0) Ur Leukocyte Esterase Negative (Negative) Urine RBC 0-5 (0-5) /hpf Urine WBC 0-5 (0-5) /hpf Ur Epithelial Cells 0-5 (0-5) /hpf Urine Bacteria Rare (FEW) /hpf Urine Mucus Not seen (FEW) /hpf Urine Opiates Screen Presumptive positive H (WWOAUA=154) Ur Buprenorphine Scrn Negative (CUTOFF=10) Ur Oxycodone Screen Negative (NAX4XK=597) Urine Methadone Screen Negative (ITT0BF=610) Ur Propoxyphene Screen Negative (KDUPCR=281) Ur Barbiturates Screen Negative (BPICMI=385) Ur Tricyclics Screen Negative (ZXSIGX=996) Ur Phencyclidine Scrn Negative (CUTOFF=25) Ur Amphetamine Screen Negative (MFZPLF=659) U Methamphetamines Scrn Presumptive positive H (PFAKNM=373) U Benzodiazepines Scrn Negative (EBAZIU=283) U Cocaine Metab Screen Negative (RUFZOW=653) U Marijuana (THC) Screen Presumptive positive H (CUTOFF=50) Ethyl Alcohol (0.00) gm% Meds: Medications Generic Name Dose Route Start Last Admin Trade Name Freq PRN Reason Stop Dose Admin Pantoprazole Sodium 80 mg/ 100 mls @ 10 mls/hr 01/09/19 20:30 01/09/19 20:28 Sodium Chloride IV 10 mls/hr Q10H SOLEDAD Administration Sodium Chloride 10 ml 01/09/19 20:07 01/09/19 20:25 Saline Flush FLUSH 10 ml ASDIRECTED PRN Administration Keep Vein Open Discontinued Medications Generic Name Dose Route Start Last Admin Trade Name Freq PRN Reason Stop Dose Admin Diatrizoate Meglum/Diatrizoate Sod 90 ml 01/09/19 21:45 01/09/19 22:19 Gastrografin 37% PO 01/09/19 21:46 90 ml ONETIME ONE Administration Hydromorphone HCl 0.5 mg 01/09/19 20:08 01/09/19 20:27 Dilaudid IVPUSH 01/09/19 20:09 0.5 mg ONETIME ONE Administration Hydromorphone HCl 0.5 mg 01/09/19 22:09 01/09/19 22:19 Dilaudid IVPUSH 01/09/19 22:10 0.5 mg ONETIME ONE Administration Sodium Chloride 1,000 mls @ 1,000 mls/hr 01/09/19 20:07 01/09/19 20:27 Normal Saline IV 01/09/19 21:06 1,000 mls/hr .BOLUS STA Administration Iopamidol 100 ml 01/09/19 21:45 01/09/19 22:19 Isovue-300 (61%) IVPUSH 01/09/19 21:46 100 ml ONETIME ONE Administration Ondansetron HCl 4 mg 01/09/19 20:07 01/09/19 20:24 Zofran IVPUSH 01/09/19 20:08 4 mg ONETIME ONE Administration Pantoprazole Sodium 80 mg 01/09/19 20:16 01/09/19 20:28 Protonix Iv IVPUSH 01/09/19 20:17 80 mg BOLUS ONE Administration - Re-Assessments/Exams Free Text/Narrative Re-Assessment/Exam: 01/09/19 20:21 I ordered an IV NS 1L bolus, zofran 4mg IV, dilaudid 0.5mg IV, protonix bolus of 80mg IV, protonix drip of 8mg/hr, labs, UA, EKG, ETOH and a CT of his abdomen and pelvis. 01/09/19 22:21 His WBC was normal. His Hgb was elevated at 17.7. His platelets were low at 153. His Na was low at 135. His K was low at 3.4. His anion gap was elevated at 16.4. His AST was elevated at 42. His troponin was negative. His EKG shows a NSR with no acute changes. His lipase was normal. His EOTH was 0.03. He is back from the CT and he is having more pain. I ordered another dose of dilaudid. 01/09/19 23:[address] shows mild small bowel wall thickening predominantly in the jejunum in the left upper quadrant suggestive of an ileus or enteritis. Gastroenteritis should be considered. No evidence for bowel obstruction. His UDS was presumptive positive for opiates which we gave him, meth and marijuana. I do not feel he is going to do well at home. I called Dr Harris and he agreed to the admission. Departure - Departure Time of Disposition: 23:45 Disposition: Admitted As Inpatient 64 Condition: Serious Clinical Impression: Enteritis Alcohol dependence Qualifiers: Substance use status: unspecified alcohol-induced disorder Qualified Code(s): F10.29 - Alcohol dependence with unspecified alcohol-induced disorder Nausea & vomiting Qualifiers: Vomiting type: unspecified Vomiting Intractability: non-intractable Qualified Code(s): R11.2 - Nausea with vomiting, unspecified Elevated ETOH level Qualifiers: Blood alcohol level: level not specified Qualified Code(s): R78.0 - Finding of alcohol in blood - Discharge Information Referrals: PCP,None [Primary Care Provider] - Forms: ED Department Discharge - My Orders Last 24 Hours: My Active Orders 01/09/19 20:07 Peripheral IV Care [RC] . DIRECTED Abdomen Pelvis w Cont [CT] Stat Sodium Chloride 0.9% [Saline Flush] 10 ml FLUSH ASDIRECTED PRN ED Antiemetic Medication Reflex [OM.PC] Stat Peripheral IV Insertion Adult [OM.PC] Stat 01/09/19 20:15 EKG 12 Lead [EK] Stat 01/09/19 20:16 EKG Documentation Completion [RC] ASDIRECTED 01/09/19 20:30 Pantoprazole [ProTONIX IV] 80 mg Sodium Chloride 0.9% [Normal Saline] 100 ml IV Q10H - Assessment/Plan Last 24 Hours: My Active Orders 01/09/19 20:07 Peripheral IV Care [RC] . DIRECTED Abdomen Pelvis w Cont [CT] Stat Sodium Chloride 0.9% [Saline Flush] 10 ml FLUSH ASDIRECTED PRN ED Antiemetic Medication Reflex [OM.PC] Stat Peripheral IV Insertion Adult [OM.PC] Stat 01/09/19 20:15 EKG 12 Lead [EK] Stat 01/09/19 20:16 EKG Documentation Completion [RC] ASDIRECTED 01/09/19 20:30 Pantoprazole [ProTONIX IV] 80 mg Sodium Chloride 0.9% [Normal Saline] 100 ml IV Q10H
[2019-01-09] MEDS ORDERED: Pantoprazole 80 MG in Sodium Chloride 0.9% 100 ML IV SCH (20:30)
[2019-01-09] MEDS ORDERED: Diatrizoate Meglumine/Diatrizoate Sodium 37% 120 ML Bottle PO ONE (21:45)
[2019-01-09] MEDS ORDERED: Iopamidol 612 MG/ML 100 ML Bottle IVPUSH ONE (21:45)
[2019-01-10] MEDS: Ondansetron 4 MG/2 ML SDV IVPUSH PRN ×3 (02:26→16:48)
[2019-01-10] MEDS: HYDROmorphone 1 MG/ML Syringe IVPUSH PRN ×5 (02:26→21:37)
[2019-01-10] MEDS: Sodium Chloride 0.9% 1,000 ML IV SCH ×2 (02:36→22:13)
--- NOTE | 2019-01-10 07:33 | CT ---
CT abdomen and pelvis Technique: Multiple axial sections were obtained from above the dome of diaphragm inferiorly through the pubic symphysis. Intravenous and oral contrast was utilized. Delayed images were also obtained through the bladder. Comparison: Prior CT abdomen and pelvis exam of 06/14/18. Findings: Slight scarring is identified within both lung bases. Liver shows no focal abnormality. Spleen appears within normal limits. Adrenal glands show no nodule. Pancreas shows no discrete abnormality. Gallbladder contains no calcified gallstones. Kidneys show no hydronephrosis. Small low density finding is seen within the right kidney compatible with minimal cyst. Delayed images show contrast within the distal ureters and bladder. Aorta shows no aneurysm. No retroperitoneal adenopathy is seen. No mesenteric abnormalities are seen. No pelvic mass or adenopathy is seen. Slight bowel wall thickening is seen within several left-sided loops of small bowel. No bowel dilatation is seen. Appendix is seen which is normal in size. Bone window settings were reviewed which show no acute osseous abnormality. Impression: 1. Several loops of mildly prominent small bowel wall thickening within the left upper abdomen. This can be a transient finding within small bowel and incidental as well as representing a mild enteritis. 2. Nothing acute is otherwise seen on CT study of the abdomen and pelvis. Diagnostic code #2 I agree with preliminary report from [facility], finalized on 01/09/19, 11:27 PM Central Time
[2019-01-10] MEDS ORDERED: Acetaminophen 325 MG Tab PO PRN (09:40)
[2019-01-10] MEDS ORDERED: Haloperidol Lactate 5 MG/ML SDV IM PRN (09:40)
[2019-01-10] MEDS ORDERED: Thiamine 100 MG in Sodium Chloride 0.9% 50 ML IV ONE (09:40)
[2019-01-10] MEDS ORDERED: hydrALAZINE 20 MG/ML SDV IVPUSH PRN (09:40)
[2019-01-10] MEDS ORDERED: Metoprolol Tartrate 5 MG/5 ML SDV IVPUSH PRN (09:40)
[2019-01-10] MEDS ORDERED: Albuterol/Ipratropium 3.0-0.5 MG/3 ML Neb Soln NEB PRN (09:40)
--- NOTE | 2019-01-10 09:40 | PCM.HP ---
H&P History of Present Illness - General Date of Service: 01/10/19 Admit Problem/Dx: Admission Diagnosis/Problem Admission Diagnosis/Problem Enteritis Source of Information: Patient, Old Records, Provider, RN Notes Reviewed History Limitations: Reports: No Limitations - History of Present Illness Initial Comments - Free Text/Narative: This is a 43 yo white male with past medical hx/o Chronic ETOH Use and Nicotine Dependence who comes in for worsening upper abdominal pain associated with nausea, vomiting, water diarrhea, fever, chills and reduced appetite. He reports a similar episode in the past, diagnosed with gastritis, but his symptoms are not as bad as today. 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 He says that he vomits some blood sometimes. He denies any recent travel outside the country. No ingestion of unusual diet or drink. No hx/o auto-immune disease. His initial work up in ED shows a CBC remarkable for Hgb of 17.7, Hct of 51.3, MCV of 95, MCH of 32.8, RDW of 44.6, Platelet count of 153, Lymphocytes of 15.5% , Monocytes of 16.3%, and Eosinophils of 0.3%. His chemistry is significant for Na of 135, K of 3.4, Cl of 96, AG of 16.4, AST of 42, Albumin of 3.2. His Lipase is normal. His UA is not suggestive of UTI. His UDS is pos for Opiates, Meth and THC. His ANTONETTE level is 0.03. His Abdominal/Pelvis CT scan report reads several loops of mildly prominent small bowel wall thickening within the left upper abdomen. Patient is being admitted for medical management of enteritis and for alcohol detoxification. Upper Abdomen Pain Score (Numeric/FACES): 6 Back Pain Score (Numeric/FACES): 5 - Related Data Allergies/Adverse Reactions: Allergies Allergy/AdvReac Type Severity Reaction Status Date / Time Penicillins Allergy Other Verified 06/13/18 09:33 Home Medications: Home Meds . [No Known Home Meds] 06/13/18 [History] Past Medical History - Past Health History Medical/Surgical History: Denies Medical/Surgical History Respiratory History: Reports: Other (See Below) Other Respiratory History: "lung surgery because it kept collapsing." Other Gastrointestinal History: blood in urine and stool Other Genitourinary History: hematuria Musculoskeletal History: Reports: Fracture Other Musculoskeletal History: "fractured spine" Psychiatric History: Reports: Addiction Social & Family History - Family History Family Medical History: Noncontributory - Tobacco Use Smoking Status *Q: Current Every Day Smoker Years of Tobacco use: 20 Packs/Tins Daily: 1 - Caffeine Use Caffeine Use: Reports: Coffee - Recreational Drug Use Recreational Drug Use: Yes Drug Use in Last 12 Months: Yes Recreational Drug Type: Reports: Marijuana/Hashish, Methamphetamine - Living Situation & Occupation Living situation: Reports: Occupation: Employed H&P Review of Systems - Review of Systems: Review Of Systems: See Below General: Reports: Fever, Chills, Decreased Appetite. Denies: Weakness, Fatigue , Diaphoresis, Weight Gain HEENT: Denies: Dysphasia Pulmonary: Denies: Shortness of Breath Cardiovascular: Denies: Chest Pain, Edema, Lightheadedness, Syncope, Blood Pressure Problem Gastrointestinal: Reports: Abdominal Pain, Diarrhea, Decreased Appetite, Flatus , Nausea, Vomiting. Denies: Anorexia, Black Stool, Bloody Stool, Difficulty Swallowing, Distension, Hematemesis, Hematochezia, Mucous in Stool Genitourinary: Reports: No Symptoms Musculoskeletal: Reports: No Symptoms Skin: Denies: Cyanosis, Pallor, Diaphoresis, Bruising, Rash, Erythema, Wound, Lesions Psychiatric: Denies: Depression, Anxiety, Hallucinations Neurological: Denies: Confusion, Dizziness, Seizure, Syncope, Tremors, Difficulty Walking, Gait Disturbance Hematologic/Lymphatic: Reports: No Symptoms Immunologic: Reports: No Symptoms Exam - Exam Exam: See Below - Vital Signs Vital Signs: Last Vital Signs Temp 36.8 C 01/10/19 08:44 Pulse 88 01/10/19 08:44 Resp 16 01/10/19 08:44 BP 126/92 H 01/10/19 08:44 Pulse Ox 95 01/10/19 08:44 Weight: 76.748 kg - Exam General: Alert, Oriented, Cooperative, Mild Distress, Other (actively vomiting; vomitus is mildly brownish in color) HEENT: Conjunctiva Clear, EACs Clear, EOMI, Hearing Intact, Mucosa Moist & [place] , Nares Patent, Normal Nasal Septum, Posterior Pharynx Clear, Pupils Equal, Pupils Reactive, Other (poor dentition) Neck: Supple, Trachea Midline, Carotid Bruit Lungs: Clear to Auscultation Cardiovascular: Regular Rate, Regular Rhythm GI/Abdominal Exam: Normal Bowel Sounds, Soft, No Organomegaly, No Distention, No Abnormal Bruit, No Mass, Tender (epigastric). No: Guarding, Rigid, Rebound, Hernia (Male) Exam: Deferred Rectal (Males) Exam: Deferred Back Exam: Normal Inspection, Decreased Range of Motion Extremities: Normal Inspection, Normal Range of Motion, Non-Tender, No Pedal Edema, Normal Capillary Refill Peripheral Pulses: 3+: Posterior Tibial (L), Posterior Tibial (R), Dorsalis Pedis (L), Dorsalis Pedis (R) Skin: Warm, Dry, Intact Neuro Extensive - Mental Status: Oriented x3, Normal Cognition, Memory Intact Neuro Extensive - Motor, Sensory, Reflexes: CN II-XII Intact, Normal Gait Psychiatric: Alert, Normal Affect, Anxious. No: Agitated, Suicidal Ideation, Homicidal Ideation, Hallucinations, Withdrawal Symptoms - Patient Data Lab Results Last 24 hrs: Laboratory Results - last 24 hr 01/09/19 01/09/19 01/09/19 Range/Units 20:20 20:20 20:20 WBC 7.29 (4.23-9.07) K/mm3 RBC 5.40 (4.63-6.08) M/mm3 Hgb 17.7 H (13.7-17.5) gm/L Hct 51.3 H (40.1-51.0) % MCV 95.0 H (79.0-92.2) fl MCH 32.8 H (25.7-32.2) pg MCHC 34.5 (32.2-35.5) g/dl RDW Std Deviation 44.6 H (35.1-43.9) fL Plt Count 153 L (163-337) K/mm3 MPV 9.9 (9.4-12.3) fl Neut % (Auto) 67.1 (34.0-67.9) % Lymph % (Auto) 15.5 L (21.8-53.1) % [place] % (Auto) 16.3 H (5.3-12.2) % Eos % (Auto) 0.3 L (0.8-7.0) Baso % (Auto) 0.3 (0.1-1.2) % Neut # (Auto) 4.89 (1.78-5.38) K/mm3 Lymph # (Auto) 1.13 L (1.32-3.57) K/mm3 [place] # (Auto) 1.19 H (0.30-0.82) K/mm3 Eos # (Auto) 0.02 L (0.04-0.54) K/mm3 Baso # (Auto) 0.02 (0.01-0.08) K/mm3 Manual Slide Review Normal smear Sodium 135 L (136-145) mEq/L Potassium 3.4 L (3.5-5.1) mEq/L Chloride 96 L (98-107) mEq/L Carbon Dioxide 26 (21-32) mEq/L Anion Gap 16.4 H (5-15) BUN 9 (7-18) mg/dL Creatinine 0.9 (0.7-1.3) mg/dL Est Cr Clr Drug Dosing 119.70 mL/min Estimated GFR (MDRD) > 60 (>60) mL/min BUN/Creatinine Ratio 10.0 L (14-18) Glucose 101 (74-106) mg/dL Calcium 8.9 (8.5-10.1) mg/dL Total Bilirubin 0.4 (0.2-1.0) mg/dL AST 42 H (15-37) U/L ALT 30 (16-63) U/L Alkaline Phosphatase 90 (46-116) U/L Troponin I < 0.017 (0.00-0.056) ng/mL Total Protein 7.9 (6.4-8.2) g/dl Albumin 3.1 L (3.4-5.0) g/dl Globulin 4.8 gm/dL Albumin/Globulin Ratio 0.7 L (1-2) Lipase 133 (73-393) U/L Urine Color (Yellow) Urine Appearance (Clear) Urine pH (5.0-8.0) Ur Specific [place] (1.005-1.030) Urine Protein (Negative) Urine Glucose (UA) (Negative) Urine Ketones (Negative) Urine Occult Blood (Negative) Urine Nitrite (Negative) Urine Bilirubin (Negative) Urine Urobilinogen (0.2-1.0) Ur Leukocyte Esterase (Negative) Urine RBC (0-5) /hpf Urine WBC (0-5) /hpf Ur Epithelial Cells (0-5) /hpf Urine Bacteria (FEW) /hpf Urine Mucus (FEW) /hpf Urine Opiates Screen (UUZYYX=634) Ur Buprenorphine Scrn (CUTOFF=10) Ur Oxycodone Screen (NXY0RT=516) Urine Methadone Screen (BGF5ZG=927) Ur Propoxyphene Screen (EUINQR=378) Ur Barbiturates Screen (DOIYVP=354) Ur Tricyclics Screen (YSGGBH=069) Ur Phencyclidine Scrn (CUTOFF=25) Ur Amphetamine Screen (ATOAJF=920) U Methamphetamines Scrn (LIOZUT=619) U Benzodiazepines Scrn (MLXGJL=189) U Cocaine Metab Screen (DCKCYY=786) U Marijuana (THC) Screen (CUTOFF=50) Ethyl Alcohol 0.03 (0.00) gm% 01/09/19 01/09/19 Range/Units 22:15 22:15 WBC (4.23-9.07) K/mm3 RBC (4.63-6.08) M/mm3 Hgb (13.7-17.5) gm/L Hct (40.1-51.0) % MCV (79.0-92.2) fl MCH (25.7-32.2) pg MCHC (32.2-35.5) g/dl RDW Std Deviation (35.1-43.9) fL Plt Count (163-337) K/mm3 MPV (9.4-12.3) fl Neut % (Auto) (34.0-67.9) % Lymph % (Auto) (21.8-53.1) % [place] % (Auto) (5.3-12.2) % Eos % (Auto) (0.8-7.0) Baso % (Auto) (0.1-1.2) % Neut # (Auto) (1.78-5.38) K/mm3 Lymph # (Auto) (1.32-3.57) K/mm3 [place] # (Auto) (0.30-0.82) K/mm3 Eos # (Auto) (0.04-0.54) K/mm3 Baso # (Auto) (0.01-0.08) K/mm3 Manual Slide Review Sodium (136-145) mEq/L Potassium (3.5-5.1) mEq/L Chloride (98-107) mEq/L Carbon Dioxide (21-32) mEq/L Anion Gap (5-15) BUN (7-18) mg/dL Creatinine (0.7-1.3) mg/dL Est Cr Clr Drug Dosing mL/min Estimated GFR (MDRD) (>60) mL/min BUN/Creatinine Ratio (14-18) Glucose (74-106) mg/dL Calcium (8.5-10.1) mg/dL Total Bilirubin (0.2-1.0) mg/dL AST (15-37) U/L ALT (16-63) U/L Alkaline Phosphatase (46-116) U/L Troponin I (0.00-0.056) ng/mL Total Protein (6.4-8.2) g/dl Albumin (3.4-5.0) g/dl Globulin gm/dL Albumin/Globulin Ratio (1-2) Lipase (73-393) U/L Urine Color Yellow (Yellow) Urine Appearance Clear (Clear) Urine pH 6.0 (5.0-8.0) Ur Specific [place] 1.020 (1.005-1.030) Urine Protein 2+ H (Negative) Urine Glucose (UA) Negative (Negative) Urine Ketones Negative (Negative) Urine Occult Blood 1+ H (Negative) Urine Nitrite Negative (Negative) Urine Bilirubin Negative (Negative) Urine Urobilinogen 0.2 (0.2-1.0) Ur Leukocyte Esterase Negative (Negative) Urine RBC 0-5 (0-5) /hpf Urine WBC 0-5 (0-5) /hpf Ur Epithelial Cells 0-5 (0-5) /hpf Urine Bacteria Rare (FEW) /hpf Urine Mucus Not seen (FEW) /hpf Urine Opiates Screen Presumptive positive H (VVTNYE=832) Ur Buprenorphine Scrn Negative (CUTOFF=10) Ur Oxycodone Screen Negative (PAN3MH=553) Urine Methadone Screen Negative (YDB0NH=412) Ur Propoxyphene Screen Negative (ARPSYW=803) Ur Barbiturates Screen Negative (JADJTI=163) Ur Tricyclics Screen Negative (SPGWSW=125) Ur Phencyclidine Scrn Negative (CUTOFF=25) Ur Amphetamine Screen Negative (VZATEC=643) U Methamphetamines Scrn Presumptive positive H (VCJZVZ=916) U Benzodiazepines Scrn Negative (IHRIED=922) U Cocaine Metab Screen Negative (JRTUAQ=203) U Marijuana (THC) Screen Presumptive positive H (CUTOFF=50) Ethyl Alcohol (0.00) gm% Result Diagrams: 01/09/19 20:20 01/10/19 10:10 Problem List Initiated/Reviewed/Updated: Yes Orders Last 24hrs: Active Orders 24 hr Category Date Time Status Admission Status [Patient Status] [ADT] Routine ADT 01/10/19 00:52 Active Bedrest [RC] ASDIRECTED Care 01/10/19 01:24 Active Peripheral IV Care [RC] Q2HR Care 01/09/19 20:07 Active Clear Liquid Diet [DIET] Diet 01/10/19 Breakfast Active BMP [BASIC METABOLIC PANEL,BMP] [CHEM] Routine Lab 01/10/19 09:22 Ordered C DIFFICILE BY PCR W/NAP1 [MOLEC] Stat Lab 01/10/19 09:24 Ordered CRP [C-REACTIVE PROTEIN] [CHEM] Routine Lab 01/10/19 09:22 Ordered CRP [C-REACTIVE PROTEIN] [CHEM] Routine Lab 01/10/19 09:23 Ordered HYDROmorphone [Dilaudid] Med 01/10/19 13:00 Active 1 mg IVPUSH Q4H PRN LORazepam [Ativan] Med 01/10/19 02:42 Active See Protocol IVPUSH Q4H PRN Ondansetron [Zofran] Med 01/10/19 01:27 Active 4 mg IVPUSH Q6H PRN Sodium Chloride 0.9% [Normal Saline] 1,000 ml Med 01/10/19 01:30 Active IV ASDIRECTED Sodium Chloride 0.9% [Saline Flush] Med 01/09/19 20:07 Active 10 ml FLUSH ASDIRECTED PRN ED Antiemetic Medication Reflex [OM.PC] Stat Oth 01/09/19 20:07 Ordered Peripheral IV Insertion Adult [OM.PC] Stat Oth 01/09/19 20:07 Ordered Code Status [Resuscitation Status] Routine Resus Stat 01/10/19 01:24 Ordered EKG 12 Lead [EK] Stat Ther 01/09/19 20:15 Ordered Medication Orders Hydromorphone HCl (Dilaudid) 1 mg IVPUSH Q4H PRN PRN Reason: Pain Sodium Chloride (Normal Saline) 1,000 mls @ 100 mls/hr IV ASDIRECTED SOLEDAD Last Admin: 01/10/19 02:36 Dose: 100 mls/hr Lorazepam (Ativan) 0 mg IVPUSH Q4H PRN; Protocol PRN Reason: Withdrawal Symptoms Ondansetron HCl (Zofran) 4 mg IVPUSH Q6H PRN PRN Reason: Nausea Last Admin: 01/10/19 08:39 Dose: 4 mg Admin: 01/10/19 02:26 Dose: 4 mg Sodium Chloride (Saline Flush) 10 ml FLUSH ASDIRECTED PRN PRN Reason: Keep Vein Open Last Admin: 01/09/19 20:25 Dose: 10 ml Assessment/Plan Comment:: Assessment/Plan: Acute: Enteritis - Unclear in etiology; Could be Viral - Having watery diarrhea - No recent travel and denies any unusual diet or drinks - Denies any hx/o auto-immune disease - Afebrile and no leukocytosis - CT scan report reads several loops of mildly prominent small bowel wall thickening within he left upper abdomen - He is getting 0.5 mg IV Dilaudid but does not seem to cut his pain; will increase dose of pain medication - CRP, C. Diff, Stool Studies and H. Pylori - DDx: Idiopathic, Cannabinoid Hyperemesis Syndrome, Auto-immune, and Infectious Enteritis (pending stool studies) Abdominal Pain - Gastris vs Esophagitis/ PUD - Risk factors: Chronic ETOH Use +/- NSAIDs Use - Currently on PPI drip; will add Sucralfate QID - Still nauseous and actively vomiting but w/o hematemesis or rectal bleed - Attempted to eat with chicken broth but w/o any success earlier today - PRN anti-emetic meds plus Scopolamine patch x 1 - GS consult in AM if not better (discussed case with Dr. Rhodes) ETOH Abuse/Use plus Substance Abuse - ANTONETTE level 0.03 - UDS positive for Meth and THC - CIWAA Protocol plus associated treatment regimen - Thiamine, Folic Acid and MVI - Mild-Moderately Anxious; maybe be for him to rest just rest for now - Tele-psych and SAC when appropriate Hypokalemia - K 3.4 - 2/2 GI Loss - Replete and Monitor Chronic: Hx/o Hematuria Substance Abuse Active Smoker, Offered Nicotine Patch Daily Plan: Admit to ICU Routine AM Labs CIWAA Protocol IVF for maintenance PPI drip and Carafate Consider IV antibiotics if CRP is elevated and if continues to be symptomatic NPO for now except ice chips, sips of water or oral meds Aspiration and Seizure Precautions DVT PPx: SCDs Additional orders as above SW/CM for D/c planning Code Status: 1
[2019-01-10] MEDS ORDERED: LORazepam 2 MG/ML SDV IVPUSH PRN (09:47)
[2019-01-10] MEDS ORDERED: Thiamine 200 MG/2 ML MDV IVPUSH ONE (10:00)
[2019-01-10] MEDS: Acetaminophen/HYDROcodone 325-5 MG Tab PO PRN (10:44)
[2019-01-10] MEDS ORDERED: Scopolamine 1.5 MG Transdermal Patch TRDERM ONE (12:26)
[2019-01-10] MEDS: cloNIDine 0.1 MG Tab PO PRN (12:55)
[2019-01-10] MEDS: Sucralfate 1 GM Tab PO SCH ×2 (16:48→21:39)
[2019-01-10] MEDS ORDERED: LORazepam 2 MG/ML SDV IVPUSH ONE (17:01)
[2019-01-10] MEDS: Topiramate 25 MG Tab PO SCH ×2 (17:18→17:21)
[2019-01-10] MEDS: QUEtiapine 25 MG Tab PO SCH (17:19)
[2019-01-10] MEDS: Nicotine 21 MG/24 Hr Patch TRDERM SCH (18:11)
[2019-01-10] MEDS: Levofloxacin/Dextrose 5%-Water 500 MG in Premix Bag 1 BAG IV SCH (21:36)
[2019-01-10] MEDS: metroNIDAZOLE/Normal Saline 500 MG in Premix Bag 1 BAG IV SCH (21:36)
[2019-01-10] MEDS: LORazepam 2 MG/ML SDV IVPUSH PRN (22:44)
[2019-01-11] MEDS: HYDROmorphone 1 MG/ML Syringe IVPUSH PRN ×3 (03:08→19:57)
[2019-01-11] MEDS: LORazepam 2 MG/ML SDV IVPUSH PRN ×3 (03:09→15:13)
[2019-01-11] MEDS: Acetaminophen/HYDROcodone 325-5 MG Tab PO PRN ×3 (05:52→17:53)
[2019-01-11] MEDS: metroNIDAZOLE/Normal Saline 500 MG in Premix Bag 1 BAG IV SCH ×3 (05:53→21:18)
[2019-01-11] MEDS: Sucralfate 1 GM Tab PO SCH ×4 (06:43→21:18)
[2019-01-11] MEDS: Nicotine 21 MG/24 Hr Patch TRDERM SCH (08:36)
[2019-01-11] MEDS: Potassium Chloride 20 MEQ Tab.ER PO SCH ×2 (08:37→11:53)
[2019-01-11] MEDS: Folic Acid 1 MG Tab PO SCH (08:38)
[2019-01-11] MEDS: Thiamine 100 MG Tab PO SCH (08:38)
[2019-01-11] MEDS: Multivitamins,Therapeutic Tab PO SCH (08:38)
[2019-01-11] MEDS: Magnesium Sulfate/Water 2 GM in Premix Bag 1 BAG IV ONE ×2 (08:38→08:48)
[2019-01-11] MEDS: Topiramate 25 MG Tab PO SCH ×2 (08:38→20:24)
[2019-01-11] MEDS: Saccharomyces Boulardii (Probiotic) 250 MG Cap PO SCH (08:38)
[2019-01-11] MEDS: Dextrose 5%-0.9% NaCl with KCl 1,000 ML IV SCH ×2 (08:47→18:55)
--- NOTE | 2019-01-11 11:33 | CR ---
Chest: Two views of the chest were obtained. Comparison: Prior chest x-ray of 01/05/18. Slight blunting of the lateral right costophrenic angle is seen. Lung markings are diffusely increased. Heart size does not appear enlarged. Upper mediastinum is normal. Diaphragms are slightly flattened on the lateral view raising the possibility of emphysematous change. Impression: 1. Diffuse increased lung markings. Findings may represent pulmonary vascular congestion if patient has had an acute cardiac event. Findings otherwise due to bronchitis. 2. Blunting of the right lateral costophrenic angle most likely representing minimal pleural effusion. 3. Possible emphysematous change. Diagnostic code #3
[2019-01-11] MEDS: chlordiazePOXIDE 25 MG Cap PO SCH ×2 (17:53→20:24)
[2019-01-11] MEDS: Ondansetron 4 MG/2 ML SDV IVPUSH PRN (20:02)
[2019-01-11] MEDS: Levofloxacin/Dextrose 5%-Water 500 MG in Premix Bag 1 BAG IV SCH (20:22)
[2019-01-11] MEDS: QUEtiapine 25 MG Tab PO SCH (20:24)
[2019-01-11] MEDS: cloNIDine 0.1 MG Tab PO PRN (20:24)
--- NOTE | 2019-01-11 22:55 | PCM.CONS ---
H&P History of Present Illness - General Date of Service: 01/11/19 Admit Problem/Dx: Admission Diagnosis/Problem Admission Diagnosis/Problem Enteritis Source of Information: Patient, Old Records - History of Present Illness Initial Comments - Free Text/Narative: 43 yo male, h/o chronic alcohol abuse, admitted yesterday ([id number]) with upper abdominal pain, associated with nausea/vomiting. Found on CT scan to have bowel wall thickening of the LEFT-sided small bowel loops. The patient was admitted on the hospitalist service to the ICU on a CIWAA protocol and for medical management of enteritis. The patient was placed NPO, IV fluids, with IV narcotics for pain control. He is now HD#2 and day #2 on Levaquin and Flagyl. I was consulted given the patient's persistent symptoms. He has been receiving Dilaudid IV and [place] PO PRN for pain control. Patient reports pain is located in the mid-epigastric region. It is sharp, waxes and wanes. Currently pain is 6/10. Pain has been associated with intermittent nausea, vomiting, and diarrhea. He reports "blood" in the stool and vomitus. Color is pink or black. He denies prior abdominal surgeries. 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 Upper Abdomen Pain Score (Numeric/FACES): 7 Back Pain Score (Numeric/FACES): 5 - Related Data Allergies/Adverse Reactions: Allergies Allergy/AdvReac Type Severity Reaction Status Date / Time Penicillins Allergy Other Verified 06/13/18 09:33 Home Medications: Home Meds . [No Known Home Meds] 06/13/18 [History] Past Medical History - Past Health History Medical/Surgical History: Denies Medical/Surgical History Respiratory History: Reports: Other (See Below) Other Respiratory History: "lung surgery because it kept collapsing." Other Gastrointestinal History: blood in urine and stool Other Genitourinary History: hematuria Musculoskeletal History: Reports: Fracture Other Musculoskeletal History: "fractured spine" Psychiatric History: Reports: Addiction Social & Family History - Family History Family Medical History: Noncontributory - Tobacco Use Smoking Status *Q: Current Every Day Smoker Years of Tobacco use: 20 Packs/Tins Daily: 1 - Caffeine Use Caffeine Use: Reports: Coffee - Recreational Drug Use Recreational Drug Use: Yes Drug Use in Last 12 Months: Yes Recreational Drug Type: Reports: Marijuana/Hashish, Methamphetamine - Living Situation & Occupation Living situation: Reports: Occupation: Employed H&P Review of Systems - Review of Systems: Review Of Systems: ROS reveals no pertinent complaints other than HPI. Exam - Exam Exam: See Below - Vital Signs Vital Signs: Last Vital Signs Temp 36.7 C 01/11/19 20:00 Pulse 92 01/11/19 21:17 Resp 16 01/11/19 20:00 BP 121/91 H 01/11/19 20:24 Pulse Ox 94 L 01/11/19 21:17 Weight: 76.748 kg - Exam General: Alert, Oriented, Cooperative HEENT: Conjunctiva Clear. No: Scleral Icterus Lungs: Clear to Auscultation, Normal Respiratory Effort Cardiovascular: Regular Rate, Regular Rhythm, Normal S1, Normal S2 GI/Abdominal Exam: Soft, Tender (tender in the epigastrium and mild tenderness in the RUQ. No peritoneal signs. Abdomen is soft, nondistended. No rigidity.) Extremities: Normal Inspection Skin: Warm, Dry, Intact Psychiatric: Alert, Normal Affect, Normal Mood - Patient Data Lab Results Last 24 hrs: Laboratory Results - last 24 hr 01/11/19 01/11/19 Range/Units 05:45 05:45 WBC 3.57 L (4.23-9.07) K/mm3 RBC 4.69 (4.63-6.08) M/mm3 Hgb 15.4 (13.7-17.5) gm/L Hct 45.5 (40.1-51.0) % MCV 97.0 H (79.0-92.2) fl MCH 32.8 H (25.7-32.2) pg MCHC 33.8 (32.2-35.5) g/dl RDW Std Deviation 44.5 H (35.1-43.9) fL Plt Count 138 L (163-337) K/mm3 MPV 9.6 (9.4-12.3) fl Neut % (Auto) 49.3 (34.0-67.9) % Lymph % (Auto) 22.7 (21.8-53.1) % [place] % (Auto) 25.2 H (5.3-12.2) % Eos % (Auto) 1.1 (0.8-7.0) Baso % (Auto) 0.6 (0.1-1.2) % Neut # (Auto) 1.76 L (1.78-5.38) K/mm3 Lymph # (Auto) 0.81 L (1.32-3.57) K/mm3 [place] # (Auto) 0.90 H (0.30-0.82) K/mm3 Eos # (Auto) 0.04 (0.04-0.54) K/mm3 Baso # (Auto) 0.02 (0.01-0.08) K/mm3 Manual Slide Review Normal smear Sodium 134 L (136-145) mEq/L Potassium 3.1 L (3.5-5.1) mEq/L Chloride 100 (98-107) mEq/L Carbon Dioxide 26 (21-32) mEq/L Anion Gap 11.1 (5-15) BUN 6 L (7-18) mg/dL Creatinine 0.7 (0.7-1.3) mg/dL Est Cr Clr Drug Dosing 146.20 mL/min Estimated GFR (MDRD) > 60 (>60) mL/min BUN/Creatinine Ratio 8.6 L (14-18) Glucose 82 (74-106) mg/dL Calcium 8.0 L (8.5-10.1) mg/dL Magnesium 1.6 L (1.8-2.4) mg/dl Result Diagrams: 01/12/19 06:45 01/12/19 06:45 Consult PN Assessment/Plan Procedures: Procedures ASSAY OF LIPASE (04/16/18) ASSAY OF MAGNESIUM (04/16/18) ASSAY OF TROPONIN QUANT (01/05/18) BL SMEAR W/DIFF WBC COUNT (04/16/18) COMPLETE CBC AUTOMATED (04/16/18) COMPLETE CBC W/AUTO DIFF WBC (02/18/18) COMPREHEN METABOLIC PANEL (04/16/18) CT HEAD/BRAIN W/O DYE (12/23/15) DRUG TEST PRSMV INSTRMNT (04/16/18) ELECTROCARDIOGRAM TRACING (01/05/18) EMERGENCY DEPT VISIT (04/16/18) EMERGENCY DEPT VISIT (01/05/18) EMERGENCY DEPT VISIT (10/30/17) EMERGENCY DEPT VISIT (12/23/15) HYDRATE IV INFUSION ADD-ON (04/16/18) HYDRATION IV INFUSION INIT (10/30/17) PROTHROMBIN TIME (01/05/18) ROUTINE VENIPUNCTURE (04/16/18) THER/PROPH/DIAG INJ IV PUSH (04/16/18) THROMBOPLASTIN TIME PARTIAL (01/05/18) TX/PRO/DX INJ NEW DRUG ADDON (04/16/18) URINALYSIS AUTO W/SCOPE (04/16/18) X-RAY EXAM ABDOMEN 2 VIEWS (04/16/18) X-RAY EXAM CHEST 1 VIEW (01/05/18) (1) Abdominal pain SNOMED Code(s): 57152385 Code(s): R10.9 - UNSPECIFIED ABDOMINAL PAIN Current Visit: No Qualifiers: Abdominal location: lower abdomen, unspecified Qualified Code(s): R10.30 - Lower abdominal pain, unspecified Problem List Initiated/Reviewed/Updated: Yes Plan: 43 yo male, h/o alcohol abuse, illicit drug abuse, presenting with abdominal pain and nausea, admitted to the ICU day #3 for alcohol withdrawal. Patient also with epigastric abdominal pain/tenderness, associated with nausea/emesis/ diarrhea. No fevers. WBC normal. Lipase on admission was normal. CT scan images and radiology report were reviewed. Bowel wall thickening of LEFT-sided small bowel loops seen, consistent with possible enteritis. - Continue bowel rest. - Given symptoms, can consider RUQ ultrasound as further work-up. - Can also consider endoscopy. However, if patient requires endoscopy, recommend higher level care due to concerns for varices. Olivier Bowie M.D ([facility])., F.A.C.S. General Surgery
[2019-01-12] MEDS: Dextrose 5%-0.9% NaCl with KCl 1,000 ML IV SCH ×2 (04:35→14:45)
[2019-01-12] MEDS: HYDROmorphone 1 MG/ML Syringe IVPUSH PRN (04:38)
[2019-01-12] MEDS: metroNIDAZOLE/Normal Saline 500 MG in Premix Bag 1 BAG IV SCH ×3 (05:24→22:05)
[2019-01-12] MEDS: Sucralfate 1 GM Tab PO SCH ×4 (06:28→21:06)
[2019-01-12] MEDS: Saccharomyces Boulardii (Probiotic) 250 MG Cap PO SCH (08:06)
[2019-01-12] MEDS: chlordiazePOXIDE 25 MG Cap PO SCH ×3 (08:06→21:06)
[2019-01-12] MEDS: Multivitamins,Therapeutic Tab PO SCH (08:06)
[2019-01-12] MEDS: Topiramate 25 MG Tab PO SCH ×2 (08:06→21:05)
[2019-01-12] MEDS: Folic Acid 1 MG Tab PO SCH (08:06)
[2019-01-12] MEDS: Thiamine 100 MG Tab PO SCH (08:06)
[2019-01-12] MEDS: Nicotine 21 MG/24 Hr Patch TRDERM SCH (08:07)
[2019-01-12] MEDS: Acetaminophen/HYDROcodone 325-5 MG Tab PO PRN (08:16)
[2019-01-12] MEDS: Ketorolac 30 MG/ML SDV IVPUSH PRN ×2 (14:16→20:09)
--- NOTE | 2019-01-12 17:26 | US ---
Abdominal ultrasound: Multiple real-time images of the abdomen were obtained. Comparison: Previous CT abdomen and pelvis study of 01/09/[address] exam of 06/14/18 is available. Small hypoechoic area is seen within the left lobe of the liver measuring about 1.7 cm. No correlating finding is seen even in retrospect on prior CT exam but findings may possibly represent focal fatty sparing of a mildly fatty liver. Gallbladder contains no shadowing gallstones. No gallbladder wall thickening or biliary duct dilatation is seen. Questionable hypoechoic finding within the pancreatic head possibly artifact versus mild edema if patient has correlating symptoms of pancreatitis. Inferior vena cava is patent. Portal vein shows normal hepatopedal flow. Kidneys show no hydronephrosis or mass. Right kidney measures 12.5 cm in length. Left kidney measures 10.7 cm in length. Spleen size is normal. Impression: 1. Small area of focal fatty sparing within the left lobe of the liver. 2. Hypoechoic head of the pancreas either artifact or due to slight edema if patient has laboratory findings of pancreatitis. 3. No additional abnormality is seen on abdominal ultrasound exam. Diagnostic code #2
--- NOTE | 2019-01-12 17:34 | PCM.PN ---
- General Info Date of Service: 01/11/19 Functional Status: Reports: Ambulating, Urinating - Review of Systems General: Reports: No Symptoms HEENT: Reports: No Symptoms Pulmonary: Reports: No Symptoms Cardiovascular: Reports: No Symptoms Gastrointestinal: Reports: No Symptoms Genitourinary: Reports: No Symptoms Musculoskeletal: Reports: No Symptoms Skin: Reports: No Symptoms Neurological: Reports: No Symptoms Psychiatric: Reports: Anxiety - Patient Data Vitals - Most Recent: Last Vital Signs Temp 36.7 C 01/12/19 12:00 Pulse 89 01/12/19 12:00 Resp 20 01/12/19 12:00 BP 113/81 01/12/19 12:00 Pulse Ox 95 01/12/19 12:00 Weight - Most Recent: 74.888 kg I&O - Last 24 Hours: Intake & Output 01/12/19 01/12/19 01/12/19 06:59 14:59 22:59 Intake Total 1497 1300 Output Total 1400 Balance 97 1300 Lab Results Last 24 Hours: Laboratory Results - last 24 hr 01/12/19 01/12/19 01/12/19 Range/Units 06:45 06:45 06:45 WBC 5.14 (4.23-9.07) K/mm3 RBC 4.85 (4.63-6.08) M/mm3 Hgb 15.6 (13.7-17.5) gm/L Hct 47.0 (40.1-51.0) % MCV 96.9 H (79.0-92.2) fl MCH 32.2 (25.7-32.2) pg MCHC 33.2 (32.2-35.5) g/dl RDW Std Deviation 44.1 H (35.1-43.9) fL Plt Count 158 L (163-337) K/mm3 MPV 9.1 L (9.4-12.3) fl Neut % (Auto) 60.1 (34.0-67.9) % Lymph % (Auto) 20.0 L (21.8-53.1) % [place] % (Auto) 16.5 H (5.3-12.2) % Eos % (Auto) 1.6 (0.8-7.0) Baso % (Auto) 0.8 (0.1-1.2) % Neut # (Auto) 3.09 (1.78-5.38) K/mm3 Lymph # (Auto) 1.03 L (1.32-3.57) K/mm3 [place] # (Auto) 0.85 H (0.30-0.82) K/mm3 Eos # (Auto) 0.08 (0.04-0.54) K/mm3 Baso # (Auto) 0.04 (0.01-0.08) K/mm3 Manual Slide Review Normal smear Sodium 140 (136-145) mEq/L Potassium 4.1 (3.5-5.1) mEq/L Chloride 105 (98-107) mEq/L Carbon Dioxide 25 (21-32) mEq/L Anion Gap 14.1 (5-15) BUN 4 L (7-18) mg/dL Creatinine 1.0 (0.7-1.3) mg/dL Est Cr Clr Drug Dosing 98.81 mL/min Estimated GFR (MDRD) > 60 (>60) mL/min BUN/Creatinine Ratio 4.0 L (14-18) Glucose 124 H (74-106) mg/dL Lactic Acid (0.4-2.0) mmol/L Calcium 8.1 L (8.5-10.1) mg/dL Magnesium 2.1 (1.8-2.4) mg/dl C-Reactive Protein 7.2 H* (<1.0) mg/dL Mycoplasma pneumon IgM (NEGATIVE) 01/12/19 01/12/19 Range/Units 06:45 11:25 WBC (4.23-9.07) K/mm3 RBC (4.63-6.08) M/mm3 Hgb (13.7-17.5) gm/L Hct (40.1-51.0) % MCV (79.0-92.2) fl MCH (25.7-32.2) pg MCHC (32.2-35.5) g/dl RDW Std Deviation (35.1-43.9) fL Plt Count (163-337) K/mm3 MPV (9.4-12.3) fl Neut % (Auto) (34.0-67.9) % Lymph % (Auto) (21.8-53.1) % [place] % (Auto) (5.3-12.2) % Eos % (Auto) (0.8-7.0) Baso % (Auto) (0.1-1.2) % Neut # (Auto) (1.78-5.38) K/mm3 Lymph # (Auto) (1.32-3.57) K/mm3 [place] # (Auto) (0.30-0.82) K/mm3 Eos # (Auto) (0.04-0.54) K/mm3 Baso # (Auto) (0.01-0.08) K/mm3 Manual Slide Review Sodium (136-145) mEq/L Potassium (3.5-5.1) mEq/L Chloride (98-107) mEq/L Carbon Dioxide (21-32) mEq/L Anion Gap (5-15) BUN (7-18) mg/dL Creatinine (0.7-1.3) mg/dL Est Cr Clr Drug Dosing mL/min Estimated GFR (MDRD) (>60) mL/min BUN/Creatinine Ratio (14-18) Glucose (74-106) mg/dL Lactic Acid 0.7 (0.4-2.0) mmol/L Calcium (8.5-10.1) mg/dL Magnesium (1.8-2.4) mg/dl C-Reactive Protein (<1.0) mg/dL Mycoplasma pneumon IgM Negative (NEGATIVE) Tamir Results Last 24 Hours: Microbiology 01/11/19 13:00 Stool Culture - Preliminary Stool / Feces Shiga Toxin I - Final NEGATIVE FOR SHIGA TOXIN 1 Shiga Toxin II - Final NEGATIVE FOR SHIGA TOXIN 2 01/12/19 10:36 Influenza Type A Antigen Screen - Final Nasal Aspirate, Unspecified NEGATIVE INFLUENZA A VIRUS AG Influenza Type B Antigen Screen - Final NEGATIVE INFLUENZA B VIRUS AG Med Orders - Current: Current Medications Acetaminophen (Tylenol) 650 mg PO Q4H PRN PRN Reason: Pain (Mild 1-3)/fever Albuterol/Ipratropium (Duoneb 3.0-0.5 Mg/3 Ml) 3 ml NEB Q4H PRN PRN Reason: Shortness Of Breath/wheezing Last Admin: 01/11/19 09:52 Dose: 3 ml Chlordiazepoxide HCl (Librium) 25 mg PO TID [facility] Last Admin: 01/12/19 14:18 Dose: 25 mg Clonidine HCl (Catapres) 0.1 mg PO Q4H PRN PRN Reason: Agitation Last Admin: 01/11/19 20:24 Dose: 0.1 mg Folic Acid (Folic Acid) 1 mg PO DAILY [facility] Stop: 01/13/19 09:01 Last Admin: 01/12/19 08:06 Dose: 1 mg Haloperidol Lactate (Haldol) 2 mg IM Q4H PRN PRN Reason: Agitation Hydralazine HCl (Apresoline) 20 mg IVPUSH Q4H PRN PRN Reason: Hypertension Levofloxacin/Dextrose 500 mg/ (Premix) 100 mls @ 100 mls/hr IV Q24H [facility] Last Admin: 01/11/19 20:22 Dose: 100 mls/hr Metronidazole 500 mg/ Premix 100 mls @ 100 mls/hr IV Q8H [facility] Last Admin: 01/12/19 14:14 Dose: 100 mls/hr Potassium Chloride/Dextrose/Sod Cl (D5 Ns With 20 Meq Kcl) 1,000 mls @ 100 mls/ hr IV ASDIRECTED [facility] Last Admin: 01/12/19 14:45 Dose: 100 mls/hr Ketorolac Tromethamine (Toradol) 30 mg IVPUSH Q6H PRN PRN Reason: Abdominal Pain Last Admin: 01/12/19 14:16 Dose: 30 mg Lorazepam (Ativan) 0 mg IVPUSH Q4H PRN; Protocol PRN Reason: Withdrawal Symptoms Last Admin: 01/11/19 15:13 Dose: 1 mg Lorazepam (Ativan) 2 mg IVPUSH Q4H PRN PRN Reason: Seizures Metoprolol Tartrate (Lopressor) 5 mg IVPUSH Q4H PRN PRN Reason: Tachycardia Miscellaneous Information (Remove Patch) 0 ea TRDERM ONETIME ONE Stop: 01/13/19 12:31 Miscellaneous Information (Remove Patch) 1 ea TRDERM DAILY [facility] Last Admin: 01/12/19 08:07 Dose: 1 ea Multivitamins (Thera) 1 each PO DAILY [facility] Last Admin: 01/12/19 08:06 Dose: 1 each Nicotine (Habitrol) 21 mg TRDERM DAILY [facility] Last Admin: 01/12/19 08:07 Dose: 21 mg Ondansetron HCl (Zofran) 4 mg IVPUSH Q6H PRN PRN Reason: Nausea Last Admin: 01/11/19 20:02 Dose: 4 mg Quetiapine Fumarate (Seroquel) 50 mg PO BEDTIME [facility] Last Admin: 01/11/19 20:24 Dose: 50 mg Saccharomyces Boulardii (Florastor) 500 mg PO DAILY [facility] Last Admin: 01/12/19 08:06 Dose: 500 mg Sodium Chloride (Saline Flush) 10 ml FLUSH ASDIRECTED PRN PRN Reason: Keep Vein Open Last Admin: 01/09/19 20:25 Dose: 10 ml Sucralfate (Carafate) 1 gm PO QIDACANDBED [facility] Last Admin: 01/12/19 17:12 Dose: 1 gm Thiamine HCl (Vitamin B-1) 100 mg PO DAILY [facility] Last Admin: 01/12/19 08:06 Dose: 100 mg Topiramate (Topamax) 25 mg PO BID [facility] Last Admin: 01/12/19 08:06 Dose: 25 mg Discontinued Medications Hydrocodone Bitart/Acetaminophen ([place] 325-5 Mg) 1 tab PO Q4H PRN PRN Reason: Pain (moderate 4-6) Last Admin: 01/12/19 08:16 Dose: 1 tab Diatrizoate Meglum/Diatrizoate Sod (Gastrografin 37%) 90 ml PO ONETIME ONE Stop: 01/09/19 21:46 Last Admin: 01/09/19 22:19 Dose: 90 ml Hydromorphone HCl (Dilaudid) 0.5 mg IVPUSH ONETIME ONE Stop: 01/09/19 20:09 Last Admin: 01/09/19 20:27 Dose: 0.5 mg Hydromorphone HCl (Dilaudid) 0.5 mg IVPUSH ONETIME ONE Stop: 01/09/19 22:10 Last Admin: 01/09/19 22:19 Dose: 0.5 mg Hydromorphone HCl (Dilaudid) 0.5 mg IVPUSH Q2H PRN PRN Reason: Pain Last Admin: 01/10/19 08:56 Dose: 0.5 mg Hydromorphone HCl (Dilaudid) 1 mg IVPUSH Q4H PRN PRN Reason: Pain Last Admin: 01/12/19 04:38 Dose: 1 mg Sodium Chloride (Normal Saline) 1,000 mls @ 1,000 mls/hr IV .BOLUS STA Stop: 01/09/19 21:06 Last Admin: 01/09/19 20:27 Dose: 1,000 mls/hr Pantoprazole Sodium 80 mg/ (Sodium Chloride) 100 mls @ 10 mls/hr IV Q10H [facility] Last Admin: 01/09/19 20:28 Dose: 10 mls/hr Sodium Chloride (Normal Saline) 1,000 mls @ 100 mls/hr IV ASDIRECTED [facility] Last Admin: 01/10/19 22:13 Dose: 100 mls/hr Thiamine HCl 100 mg/ Sodium (Chloride) 51 mls @ 100 mls/hr IV ONETIME ONE Stop: 01/10/19 10:10 Last Admin: 01/10/19 15:54 Dose: Not Given Magnesium Sulfate 2 gm/ Premix 50 mls @ 25 mls/hr IV ONETIME ONE Stop: 01/11/19 10:14 Last Admin: 01/11/19 08:48 Dose: 25 mls/hr Iopamidol (Isovue-300 (61%)) 100 ml IVPUSH ONETIME ONE Stop: 01/09/19 21:46 Last Admin: 01/09/19 22:19 Dose: 100 ml Lorazepam (Ativan) 0 mg IVPUSH Q4H PRN; Protocol PRN Reason: Withdrawal Symptoms Last Admin: 01/11/19 03:09 Dose: 1 mg Lorazepam (Ativan) 2 mg IVPUSH ONETIME ONE Stop: 01/10/19 17:02 Last Admin: 01/10/19 17:56 Dose: 2 mg Magnesium Sulfate (Pharmacy To Dose - Magnesium Replacement) 1 dose .XX ASDIRECTED [facility] Ondansetron HCl (Zofran) 4 mg IVPUSH ONETIME ONE Stop: 01/09/19 20:08 Last Admin: 01/09/19 20:24 Dose: 4 mg Pantoprazole Sodium (Protonix Iv) 80 mg IVPUSH BOLUS ONE Stop: 01/09/19 20:17 Last Admin: 01/09/19 20:28 Dose: 80 mg Potassium Chloride (Pharmacy To Dose - Potassium Replacement) 1 dose .XX ASDIRECTED [facility] Potassium Chloride (Klor-Con M20) 40 meq PO Q4H [facility] Stop: 01/11/19 12:16 Last Admin: 01/11/19 11:53 Dose: Not Given Scopolamine (Transderm-Scop) 1.5 mg TRDERM Q72H ONE Stop: 01/10/19 12:27 Last Admin: 01/10/19 12:46 Dose: 1.5 mg Thiamine HCl (Vitamin B-1) 100 mg IVPUSH ONETIME ONE Stop: 01/10/19 10:01 Last Admin: 01/10/19 10:44 Dose: 100 mg - Exam Quality Assessment: DVT Prophylaxis General: Alert, Oriented, Cooperative, No Acute Distress HEENT: Pupils Equal, Pupils Reactive, EOMI Neck: Trachea Midline, No JVD Lungs: Clear to Auscultation, Normal Respiratory Effort Cardiovascular: Regular Rate, Regular Rhythm GI/Abdominal Exam: Normal Bowel Sounds, Soft, Non-Tender, No Organomegaly, No Distention (Male) Exam: Deferred Back Exam: Normal Inspection Extremities: Normal Inspection, Non-Tender, Normal Capillary Refill Skin: Warm Neurological: No New Focal Deficit Psy/Mental Status: Alert, Anxious - Problem List Review Problem List Initiated/Reviewed/Updated: Yes - My Orders Last 24 Hours: My Active Orders 01/11/19 18:00 chlordiazePOXIDE [Librium] 25 mg PO TID 01/12/19 10:48 Ketorolac [Toradol] 30 mg IVPUSH Q6H PRN 01/13/19 05:00 CRP [C-REACTIVE PROTEIN] [CHEM] DAILY 01/13/19 05:11 LACTIC ACID [CHEM] DAILY 01/14/19 05:00 CRP [C-REACTIVE PROTEIN] [CHEM] DAILY 01/14/19 05:11 LACTIC ACID [CHEM] DAILY 01/15/19 05:00 CRP [C-REACTIVE PROTEIN] [CHEM] DAILY 01/15/19 05:11 LACTIC ACID [CHEM] DAILY - Plan Plan:: Assessment/Plan: Acute: Enteritis - Unclear in etiology; Could be Viral - Having watery diarrhea - No recent travel and denies any unusual diet or drinks - Denies any hx/o auto-immune disease - Afebrile and no leukocytosis - CT scan report reads several loops of mildly prominent small bowel wall thickening within he left upper abdomen - He is getting 0.5 mg IV Dilaudid but does not seem to cut his pain; will increase dose of pain medication - CRP, C. Diff, Stool Studies and H. Pylori - DDx: Idiopathic, Cannabinoid Hyperemesis Syndrome, Auto-immune, and Infectious Enteritis (pending stool studies) Abdominal Pain - Gastris vs Esophagitis/ PUD - Risk factors: Chronic ETOH Use +/- NSAIDs Use - Currently on PPI drip; will add Sucralfate QID - Still nauseous and actively vomiting but w/o hematemesis or rectal bleed - Attempted to eat with chicken broth but w/o any success earlier today - PRN anti-emetic meds plus Scopolamine patch x 1 - GS consult in AM if not better (discussed case with Dr. Rhodes) ETOH Abuse/Use plus Substance Abuse - ANTONETTE level 0.03 - UDS positive for Meth and THC - CIWAA Protocol plus associated treatment regimen - Thiamine, Folic Acid and MVI - Mild-Moderately Anxious; maybe be for him to rest just rest for now - Tele-psych and SAC when appropriate Hypokalemia - K 3.4 - 2/2 GI Loss - Replete and Monitor Chronic: Hx/o Hematuria Substance Abuse Active Smoker, Offered Nicotine Patch Daily Plan: Admit to ICU Routine AM Labs CIWAA Protocol IVF for maintenance PPI drip and Carafate Consider IV antibiotics if CRP is elevated and if continues to be symptomatic NPO for now except ice chips, sips of water or oral meds Aspiration and Seizure Precautions DVT PPx: SCDs Additional orders as above SW/CM for D/c planning Code Status: 1
[2019-01-12] MEDS ORDERED: Acetaminophen/Butalbital/Caffeine 325-50-40 MG Tab PO PRN (20:23)
--- NOTE | 2019-01-12 20:30 | PCM.PN ---
- General Info Date of Service: 01/12/19 Subjective Update: Patient will be seen by SA today, finalizing treatment program is expected. Has had abdominal discomfort, has CT of abdomen/pelvis; will get gen surg consult. May need abdominal US. Remains NPO, CIWAs have improved on scheduled Librium. Functional Status: Reports: Tolerating Diet (NPO), Ambulating, Urinating - Review of Systems General: Reports: No Symptoms HEENT: Reports: No Symptoms Pulmonary: Reports: No Symptoms Cardiovascular: Reports: No Symptoms Gastrointestinal: Reports: Abdominal Pain (RUQ) Genitourinary: Reports: No Symptoms Musculoskeletal: Reports: No Symptoms Skin: Reports: No Symptoms Neurological: Reports: No Symptoms Psychiatric: Reports: Anxiety - Patient Data Vitals - Most Recent: Last Vital Signs Temp 37.1 C 01/12/19 20:00 Pulse 81 01/12/19 16:00 Resp 16 01/12/19 20:00 BP 119/85 01/12/19 20:00 Pulse Ox 94 L 01/12/19 20:00 Weight - Most Recent: 74.888 kg I&O - Last 24 Hours: Intake & Output 01/12/19 01/12/19 01/12/19 06:59 14:59 22:59 Intake Total 1497 1300 Output Total 1400 Balance 97 1300 Lab Results Last 24 Hours: Laboratory Results - last 24 hr 01/12/19 01/12/19 01/12/19 Range/Units 06:45 06:45 06:45 WBC 5.14 (4.23-9.07) K/mm3 RBC 4.85 (4.63-6.08) M/mm3 Hgb 15.6 (13.7-17.5) gm/L Hct 47.0 (40.1-51.0) % MCV 96.9 H (79.0-92.2) fl MCH 32.2 (25.7-32.2) pg MCHC 33.2 (32.2-35.5) g/dl RDW Std Deviation 44.1 H (35.1-43.9) fL Plt Count 158 L (163-337) K/mm3 MPV 9.1 L (9.4-12.3) fl Neut % (Auto) 60.1 (34.0-67.9) % Lymph % (Auto) 20.0 L (21.8-53.1) % [place] % (Auto) 16.5 H (5.3-12.2) % Eos % (Auto) 1.6 (0.8-7.0) Baso % (Auto) 0.8 (0.1-1.2) % Neut # (Auto) 3.09 (1.78-5.38) K/mm3 Lymph # (Auto) 1.03 L (1.32-3.57) K/mm3 [place] # (Auto) 0.85 H (0.30-0.82) K/mm3 Eos # (Auto) 0.08 (0.04-0.54) K/mm3 Baso # (Auto) 0.04 (0.01-0.08) K/mm3 Manual Slide Review Normal smear Sodium 140 (136-145) mEq/L Potassium 4.1 (3.5-5.1) mEq/L Chloride 105 (98-107) mEq/L Carbon Dioxide 25 (21-32) mEq/L Anion Gap 14.1 (5-15) BUN 4 L (7-18) mg/dL Creatinine 1.0 (0.7-1.3) mg/dL Est Cr Clr Drug Dosing 98.81 mL/min Estimated GFR (MDRD) > 60 (>60) mL/min BUN/Creatinine Ratio 4.0 L (14-18) Glucose 124 H (74-106) mg/dL Lactic Acid (0.4-2.0) mmol/L Calcium 8.1 L (8.5-10.1) mg/dL Magnesium 2.1 (1.8-2.4) mg/dl C-Reactive Protein 7.2 H* (<1.0) mg/dL Mycoplasma pneumon IgM (NEGATIVE) 01/12/19 01/12/19 Range/Units 06:45 11:25 WBC (4.23-9.07) K/mm3 RBC (4.63-6.08) M/mm3 Hgb (13.7-17.5) gm/L Hct (40.1-51.0) % MCV (79.0-92.2) fl MCH (25.7-32.2) pg MCHC (32.2-35.5) g/dl RDW Std Deviation (35.1-43.9) fL Plt Count (163-337) K/mm3 MPV (9.4-12.3) fl Neut % (Auto) (34.0-67.9) % Lymph % (Auto) (21.8-53.1) % [place] % (Auto) (5.3-12.2) % Eos % (Auto) (0.8-7.0) Baso % (Auto) (0.1-1.2) % Neut # (Auto) (1.78-5.38) K/mm3 Lymph # (Auto) (1.32-3.57) K/mm3 [place] # (Auto) (0.30-0.82) K/mm3 Eos # (Auto) (0.04-0.54) K/mm3 Baso # (Auto) (0.01-0.08) K/mm3 Manual Slide Review Sodium (136-145) mEq/L Potassium (3.5-5.1) mEq/L Chloride (98-107) mEq/L Carbon Dioxide (21-32) mEq/L Anion Gap (5-15) BUN (7-18) mg/dL Creatinine (0.7-1.3) mg/dL Est Cr Clr Drug Dosing mL/min Estimated GFR (MDRD) (>60) mL/min BUN/Creatinine Ratio (14-18) Glucose (74-106) mg/dL Lactic Acid 0.7 (0.4-2.0) mmol/L Calcium (8.5-10.1) mg/dL Magnesium (1.8-2.4) mg/dl C-Reactive Protein (<1.0) mg/dL Mycoplasma pneumon IgM Negative (NEGATIVE) Tamir Results Last 24 Hours: Microbiology 01/11/19 13:00 Stool Culture - Preliminary Stool / Feces Shiga Toxin I - Final NEGATIVE FOR SHIGA TOXIN 1 Shiga Toxin II - Final NEGATIVE FOR SHIGA TOXIN 2 01/12/19 10:36 Influenza Type A Antigen Screen - Final Nasal Aspirate, Unspecified NEGATIVE INFLUENZA A VIRUS AG Influenza Type B Antigen Screen - Final NEGATIVE INFLUENZA B VIRUS AG Med Orders - Current: Current Medications Acetaminophen (Tylenol) 650 mg PO Q4H PRN PRN Reason: Pain (Mild 1-3)/fever Albuterol/Ipratropium (Duoneb 3.0-0.5 Mg/3 Ml) 3 ml NEB Q4H PRN PRN Reason: Shortness Of Breath/wheezing Last Admin: 01/11/19 09:52 Dose: 3 ml Chlordiazepoxide HCl (Librium) 25 mg PO TID [facility] Last Admin: 01/12/19 14:18 Dose: 25 mg Clonidine HCl (Catapres) 0.1 mg PO Q4H PRN PRN Reason: Agitation Last Admin: 01/11/19 20:24 Dose: 0.1 mg Folic Acid (Folic Acid) 1 mg PO DAILY [facility] Stop: 01/13/19 09:01 Last Admin: 01/12/19 08:06 Dose: 1 mg Haloperidol Lactate (Haldol) 2 mg IM Q4H PRN PRN Reason: Agitation Hydralazine HCl (Apresoline) 20 mg IVPUSH Q4H PRN PRN Reason: Hypertension Levofloxacin/Dextrose 500 mg/ (Premix) 100 mls @ 100 mls/hr IV Q24H [facility] Last Admin: 01/11/19 20:22 Dose: 100 mls/hr Metronidazole 500 mg/ Premix 100 mls @ 100 mls/hr IV Q8H [facility] Last Admin: 01/12/19 14:14 Dose: 100 mls/hr Potassium Chloride/Dextrose/Sod Cl (D5 Ns With 20 Meq Kcl) 1,000 mls @ 100 mls/ hr IV ASDIRECTED [facility] Last Admin: 01/12/19 14:45 Dose: 100 mls/hr Ketorolac Tromethamine (Toradol) 30 mg IVPUSH Q6H PRN PRN Reason: Abdominal Pain Last Admin: 01/12/19 20:09 Dose: 30 mg Lorazepam (Ativan) 0 mg IVPUSH Q4H PRN; Protocol PRN Reason: Withdrawal Symptoms Last Admin: 01/11/19 15:13 Dose: 1 mg Lorazepam (Ativan) 2 mg IVPUSH Q4H PRN PRN Reason: Seizures Metoprolol Tartrate (Lopressor) 5 mg IVPUSH Q4H PRN PRN Reason: Tachycardia Miscellaneous Information (Remove Patch) 0 ea TRDERM ONETIME ONE Stop: 01/13/19 12:31 Miscellaneous Information (Remove Patch) 1 ea TRDERM DAILY [facility] Last Admin: 01/12/19 08:07 Dose: 1 ea Multivitamins (Thera) 1 each PO DAILY [facility] Last Admin: 01/12/19 08:06 Dose: 1 each Nicotine (Habitrol) 21 mg TRDERM DAILY [facility] Last Admin: 01/12/19 08:07 Dose: 21 mg Ondansetron HCl (Zofran) 4 mg IVPUSH Q6H PRN PRN Reason: Nausea Last Admin: 01/11/19 20:02 Dose: 4 mg Quetiapine Fumarate (Seroquel) 50 mg PO BEDTIME [facility] Last Admin: 01/11/19 20:24 Dose: 50 mg Saccharomyces Boulardii (Florastor) 500 mg PO DAILY [facility] Last Admin: 01/12/19 08:06 Dose: 500 mg Sodium Chloride (Saline Flush) 10 ml FLUSH ASDIRECTED PRN PRN Reason: Keep Vein Open Last Admin: 01/09/19 20:25 Dose: 10 ml Sucralfate (Carafate) 1 gm PO QIDACANDBED [facility] Last Admin: 01/12/19 17:12 Dose: 1 gm Thiamine HCl (Vitamin B-1) 100 mg PO DAILY [facility] Last Admin: 01/12/19 08:06 Dose: 100 mg Topiramate (Topamax) 25 mg PO BID [facility] Last Admin: 01/12/19 08:06 Dose: 25 mg Discontinued Medications Hydrocodone Bitart/Acetaminophen ([place] 325-5 Mg) 1 tab PO Q4H PRN PRN Reason: Pain (moderate 4-6) Last Admin: 01/12/19 08:16 Dose: 1 tab Diatrizoate Meglum/Diatrizoate Sod (Gastrografin 37%) 90 ml PO ONETIME ONE Stop: 01/09/19 21:46 Last Admin: 01/09/19 22:19 Dose: 90 ml Hydromorphone HCl (Dilaudid) 0.5 mg IVPUSH ONETIME ONE Stop: 01/09/19 20:09 Last Admin: 01/09/19 20:27 Dose: 0.5 mg Hydromorphone HCl (Dilaudid) 0.5 mg IVPUSH ONETIME ONE Stop: 01/09/19 22:10 Last Admin: 01/09/19 22:19 Dose: 0.5 mg Hydromorphone HCl (Dilaudid) 0.5 mg IVPUSH Q2H PRN PRN Reason: Pain Last Admin: 01/10/19 08:56 Dose: 0.5 mg Hydromorphone HCl (Dilaudid) 1 mg IVPUSH Q4H PRN PRN Reason: Pain Last Admin: 01/12/19 04:38 Dose: 1 mg Sodium Chloride (Normal Saline) 1,000 mls @ 1,000 mls/hr IV .BOLUS STA Stop: 01/09/19 21:06 Last Admin: 01/09/19 20:27 Dose: 1,000 mls/hr Pantoprazole Sodium 80 mg/ (Sodium Chloride) 100 mls @ 10 mls/hr IV Q10H [facility] Last Admin: 01/09/19 20:28 Dose: 10 mls/hr Sodium Chloride (Normal Saline) 1,000 mls @ 100 mls/hr IV ASDIRECTED [facility] Last Admin: 01/10/19 22:13 Dose: 100 mls/hr Thiamine HCl 100 mg/ Sodium (Chloride) 51 mls @ 100 mls/hr IV ONETIME ONE Stop: 01/10/19 10:10 Last Admin: 01/10/19 15:54 Dose: Not Given Magnesium Sulfate 2 gm/ Premix 50 mls @ 25 mls/hr IV ONETIME ONE Stop: 01/11/19 10:14 Last Admin: 01/11/19 08:48 Dose: 25 mls/hr Iopamidol (Isovue-300 (61%)) 100 ml IVPUSH ONETIME ONE Stop: 01/09/19 21:46 Last Admin: 01/09/19 22:19 Dose: 100 ml Lorazepam (Ativan) 0 mg IVPUSH Q4H PRN; Protocol PRN Reason: Withdrawal Symptoms Last Admin: 01/11/19 03:09 Dose: 1 mg Lorazepam (Ativan) 2 mg IVPUSH ONETIME ONE Stop: 01/10/19 17:02 Last Admin: 01/10/19 17:56 Dose: 2 mg Magnesium Sulfate (Pharmacy To Dose - Magnesium Replacement) 1 dose .XX ASDIRECTED [facility] TO [facility] Ondansetron HCl (Zofran) 4 mg IVPUSH ONETIME ONE Stop: 01/09/19 20:08 Last Admin: 01/09/19 20:24 Dose: 4 mg Pantoprazole Sodium (Protonix Iv) 80 mg IVPUSH BOLUS ONE Stop: 01/09/19 20:17 Last Admin: 01/09/19 20:28 Dose: 80 mg Potassium Chloride (Pharmacy To Dose - Potassium Replacement) 1 dose .XX ASDIRECTED PENDING SALE TO [facility] Potassium Chloride (Klor-Con M20) 40 meq PO Q4H SOLEDAD Stop: 01/11/19 12:16 Last Admin: 01/11/19 11:53 Dose: Not Given Scopolamine (Transderm-Scop) 1.5 mg TRDERM Q72H ONE Stop: 01/10/19 12:27 Last Admin: 01/10/19 12:46 Dose: 1.5 mg Thiamine HCl (Vitamin B-1) 100 mg IVPUSH ONETIME ONE Stop: 01/10/19 10:01 Last Admin: 01/10/19 10:44 Dose: 100 mg - Exam Quality Assessment: DVT Prophylaxis General: Alert, Oriented, Cooperative, No Acute Distress HEENT: Pupils Equal, Pupils Reactive, EOMI Neck: Trachea Midline, No JVD Lungs: Clear to Auscultation, Normal Respiratory Effort Cardiovascular: Regular Rate, Regular Rhythm GI/Abdominal Exam: Normal Bowel Sounds, Soft, No Organomegaly, No Distention, Tender (RUQ) (Male) Exam: Deferred Back Exam: Normal Inspection Extremities: Normal Inspection, Non-Tender, Normal Capillary Refill Skin: Warm Neurological: No New Focal Deficit Psy/Mental Status: Alert, Anxious - Problem List Review Problem List Initiated/Reviewed/Updated: Yes - My Orders Last 24 Hours: My Active Orders 01/12/19 10:48 Ketorolac [Toradol] 30 mg IVPUSH Q6H PRN 01/13/19 05:00 CRP [C-REACTIVE PROTEIN] [CHEM] DAILY 01/13/19 05:11 LACTIC ACID [CHEM] DAILY 01/14/19 05:00 CRP [C-REACTIVE PROTEIN] [CHEM] DAILY 01/14/19 05:11 LACTIC ACID [CHEM] DAILY 01/15/19 05:00 CRP [C-REACTIVE PROTEIN] [CHEM] DAILY 01/15/19 05:11 LACTIC ACID [CHEM] DAILY - Plan Plan:: Assessment/Plan: Acute: Enteritis - Unclear in etiology; Could be Viral - Having watery diarrhea - No recent travel and denies any unusual diet or drinks - Denies any hx/o auto-immune disease - Afebrile and no leukocytosis - CT scan report reads several loops of mildly prominent small bowel wall thickening within he left upper abdomen - He is getting 0.5 mg IV Dilaudid but does not seem to cut his pain; will increase dose of pain medication - CRP, C. Diff, Stool Studies and H. Pylori - DDx: Idiopathic, Cannabinoid Hyperemesis Syndrome, Auto-immune, and Infectious Enteritis (pending stool studies) Abdominal Pain - Gastris vs Esophagitis/ PUD - Risk factors: Chronic ETOH Use +/- NSAIDs Use - Currently on PPI drip; will add Sucralfate QID - Still nauseous and actively vomiting but w/o hematemesis or rectal bleed - Attempted to eat with chicken broth but w/o any success earlier today - PRN anti-emetic meds plus Scopolamine patch x 1 - GS consult in AM if not better (discussed case with Dr. Rhodes) ETOH Abuse/Use plus Substance Abuse - ANTONETTE level 0.03 - UDS positive for Meth and THC - [facility] Protocol plus associated treatment regimen - Thiamine, Folic Acid and MVI - Mild-Moderately Anxious; maybe be for him to rest just rest for now - Tele-psych and SAC when appropriate Hypokalemia - K 3.4 - 2/2 GI Loss - Replete and Monitor Chronic: Hx/o Hematuria Substance Abuse Active Smoker, Offered Nicotine Patch Daily Plan: Admit to ICU Routine AM Labs [facility] Protocol IVF for maintenance PPI drip and Carafate Consider IV antibiotics if CRP is elevated and if continues to be symptomatic NPO for now except ice chips, sips of water or oral meds Aspiration and Seizure Precautions DVT PPx: SCDs Additional orders as above SW/CM for D/c planning Code Status: 1 SA eval completed, will be committed for SA treatment; anticipate DC/transfer early next week. Advance diet attempt likely 01/13/19, will get Abd US as well as lipase/amylase for more evaluation of abd pain
[2019-01-12] MEDS: QUEtiapine 25 MG Tab PO SCH (21:05)
[2019-01-12] MEDS: Levofloxacin/Dextrose 5%-Water 500 MG in Premix Bag 1 BAG IV SCH (21:08)
[2019-01-13] MEDS: Dextrose 5%-0.9% NaCl with KCl 1,000 ML IV SCH (00:53)
[2019-01-13] MEDS: metroNIDAZOLE/Normal Saline 500 MG in Premix Bag 1 BAG IV SCH ×2 (05:33→14:13)
[2019-01-13] MEDS: Ketorolac 30 MG/ML SDV IVPUSH PRN ×3 (05:36→21:31)
[2019-01-13] MEDS: Sucralfate 1 GM Tab PO SCH (06:38)
[2019-01-13] MEDS: Saccharomyces Boulardii (Probiotic) 250 MG Cap PO SCH (08:28)
[2019-01-13] MEDS: Topiramate 25 MG Tab PO SCH ×2 (08:28→21:29)
[2019-01-13] MEDS: Multivitamins,Therapeutic Tab PO SCH (08:28)
[2019-01-13] MEDS: chlordiazePOXIDE 25 MG Cap PO SCH ×3 (08:28→21:29)
[2019-01-13] MEDS: Folic Acid 1 MG Tab PO SCH (08:28)
[2019-01-13] MEDS: Thiamine 100 MG Tab PO SCH (08:28)
[2019-01-13] MEDS: Nicotine 21 MG/24 Hr Patch TRDERM SCH (08:32)
--- NOTE | 2019-01-13 12:36 | CONS ---
CONSULTING PHYSICIAN: Antoine Du LAC DATE OF CONSULTATION: 01/13/2019 TIME: 10:49 a.m. The patient is a 43-year-old male, who was admitted to [facility] on 01/10/2019. An alcohol and drug consultation was requested by his medical treatment team. SOURCE OF INFORMATION: The patient's self-report, hospital records, staff report, background research, prescription drug monitoring report, and SILVIA was signed to coordinate treatment with [facility] in [place], [place]. HISTORY OF PRESENT ILLNESS: The patient is a 43-year-old male, who has a history of chronic polysubstance dependence, alcohol and THC; THC use disorder, severe. He initially presented to this nursing center tutor with alcohol-related medical concerns in 2012 when he was admitted to [facility] with a ANTONETTE 0.35, requesting detox. At that time, he had recently completed a residential treatment program at [facility], but had resumed drinking. Since that time, it appears the patient has struggled with achieving and maintaining sobriety as he has presented to [facility] 6 prior times from 2015 to the present with alcohol-related medical problems. On this admission, he presents with enteritis, abdominal pain, and a return of esophageal varices that is caused and exacerbated by substance use. He also was hospitalized for medical detox and presented with a ANTONETTE 0.03. The patient's lab reports indicate the presence of alcohol, THC, and methamphetamine. However, the patient denies use of methamphetamine. PSYCHOSOCIAL HISTORY: The patient reports he was born in [place], [place], and lived primarily in the [facility] [place] area. He was raised by his biological parents, who are still together. His father runs the [employer] at [facility] in [place], [place], and his mother is handicapped. The patient is the oldest of 5 siblings. The patient was one time previously and in approximately 2012. He has 2 daughters, one from marriage and one from a previous relationship. 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 In 2017, the patient had a work-related fall and broke his back and reported at that time that he was unemployed and living on disability. The patient reports that he is currently living with roommates in [place], [place]. MENTAL HEALTH HISTORY: Dr. Kennedy completed a mental health assessment and has diagnosed the patient with depression, NOS. The patient was prescribed Seroquel 50 mg. The patient denies previous psychiatric hospitalization. SUBSTANCE USE HISTORY: The patient's self-reported drinking history has been consistent since his first admission to [facility] in 2012. At that time, he was reporting that he drank approximately 18 beers and/or 1.75 of tequila on a regular basis up to daily use. He has since decided to not drink tequila, but he continues to david his beer drinking with liquor, primarily bar whiskey or Fireball. Since 2012, he has struggled with achieving and maintaining sobriety after completing a residential treatment program at [facility] in 2012. He has presented to [facility] ER 6 prior times with alcohol-related medical problems from 2015 to the present. In October 2017, the patient was committed to the [facility] from [facility] and was subsequently transferred to [facility] for residential treatment. However, the patient reports he resumed drinking shortly thereafter and has been drinking daily to the present. Approximately [id number], the patient reports that he could drink up to a case to a case and a half of beer and/or 2 bottles of whiskey daily. In the more recent months, he reports drinking a 12 to an 18 pack of beer and a couple of shots of whiskey daily. The patient adds that in the past weeks he has been drinking instead of eating until he could not drink anymore because of the pain in his abdomen. His last drink was prior to admission. The patient does experience severe withdrawals from alcohol including DTs and seizures. The patient also smokes cigarettes daily up to three-quarters pack. The patient reports that he broke his back in a construction accident while on the job in 2016 and has struggled with phantom pain since that time. He reports that he smokes cannabis to assist with the pain. He was using opiates for about 4-5 months following his accident according to his prescription drug monitoring report; however, the patient reports that he did not continue using opiates, rather he turned to cannabis. The patient is reporting that he currently smokes as much as he can afford, anywhere from 1-3 bowls a day in addition to his alcohol use. The last time he smoked cannabis was prior to admission. The patient was asked about his methamphetamine use as his toxicology report indicated the presence of the drug. The patient denied the use of methamphetamine and reports that there are people who live in the basement of his home who may use methamphetamine. It is possible that the patient could test positive from secondary passive smoke. A diagnosis for methamphetamine use disorder is inconclusive at this time. DIAGNOSES: 1. F10.20, alcohol use disorder, severe. 2. F10.229, alcohol intoxication. 3. F10.239, alcohol withdrawal without perceptual disturbance. 4. F17.200, tobacco use disorder, severe. 5. F12.20, cannabis use disorder, severe. ASAM DIMENSIONS: Dimension 1: Score 2. The patient has some difficulty tolerating and coping with withdrawal discomfort. Intoxication may be severe, but the patient responds to treatment. The patient displays moderate signs and symptoms and risk of severe withdrawal. The patient's CIWA scores are in the moderate range. Dimension 2: Score 2. The patient presents with biomedical problems, enteritis and esophageal varices, which could interfere with recovery or treatment. The patient currently has a need for medical services with regard to his alcohol- related medical condition. Dimension 3: Score 1. The patient was diagnosed with depression, NOS. The patient may have emotional concerns that relate to negative consequences and affective addiction. He does appear to have symptoms that may not impair social role, functioning. Dimension 4: Score 3. The patient exhibits inconsistent followthrough and has verbalized intentions in the past several hospital admissions to get help, but has not followed through. The patient appears to be only partially willing to follow through with treatment recommendations. Dimension 5: Score 3+. The patient appears to have little recognition and understanding of relapse and recidivism issues. The patient demonstrates poor skills to cope with and interrupt addiction problem or to avoid or limit relapse or continued use. The patient appears to be affected by external influences. The patient has frequent use of alcohol, 3 or more times a week. The patient is reporting daily intoxication and repeated treatment episodes with little positive effect on functioning. Dimension 6: Score 3. The patient's living environment is not supportive of addiction recovery as people in the household are currently dependent or abusing substances. Alcohol and drugs appear to be readily available for leisure or recreational activities. The patient's peer groups are also substance users. ASSESSMENT SUMMARY: The patient presents with chronic severe polysubstance dependence, tobacco, alcohol, and THC. The patient's toxicology report indicates the presence of methamphetamine. However, the patient denies use, reporting that there are people in the basement of his home who may be using methamphetamine. Secondary passive assimilation is possible and a diagnosis for methamphetamine use disorder is inconclusive at this point. With regard to the patient's alcohol and THC use, historically since 2012, the patient has demonstrated an inability to achieve and maintain sobriety for any substantive period of time. He has been admitted to the hospital 6 times in the past year for alcohol-related medical problems or detoxification. His admission on 10/27/2017 resulted in a petition for involuntary commitment to the [facility]. However, the patient reported that he resumed his substance use shortly after he completed the program. Other previous admissions, the patient was given referrals to [facility] treatment programs, and although the patient verbalized he wanted to pursue treatment, never followed through. On this admission, the patient reported that he was "signed up to go to [facility]," and in speaking with that program, the custom studio coordinator indicated that the patient never completed the application process and that there is at least a year's waiting list. The patient appears to be in early stage IV alcoholism manifesting with an inability to achieve sustained sobriety, a psychological dependence on alcohol, and the onset of serious medical consequences as a result of alcohol use. The patient's medical condition continues to deteriorate despite knowledge that his drinking appears to be the primary cause. The patient reports that he is drinking instead of eating and then is not able to eat because of the pain. The patient demonstrates a maladaptive pattern of alcohol and drug use with poor self- control resulting in substantial deterioration in physical health and lack of capacity to make reasonable decisions regarding his survival and caring for himself. The patient meets ASAM imminent danger criteria for a petition for involuntary commitment. The patient also meets ASAM criteria for level 3.7, medically managed inpatient treatment, as he currently presents with a medical condition that requires monitoring. The patient's medical treatment team consulted regarding a safe discharge plan and continued care. Antoine Du LAC, attempted to coordinate admission to [facility]. However, there is no available bed for perhaps up to year as they have a waiting list of 5 people. Antoine Du LAC, attempted to make arrangements for admission to [facility] as the patient would not need insurance for this program. However, they also had a long waiting list. SHAAN Small, contacted [facility], the only other available treatment center for uninsured persons for a direct admit. Representatives from that facility have agreed to screen this patient for admission to either [facility] or the [facility]. RECOMMENDATION: Level 3.7, medically managed inpatient treatment, on a petition for involuntary commitment to any admitting facility. MMODAL /[id number]
--- NOTE | 2019-01-13 13:37 | PCM.PN ---
- General Info Date of Service: 01/13/19 Admission Dx/Problem (Free Text): Admission Diagnosis/Problem Admission Diagnosis/Problem Enteritis Subjective Update: In to see Iker. He is sitting up in bed watching TV. He states he still has some abdominal pain, nausea with eating, and diarrhea, but that all of these symptoms are improving each day. No other concerns at this time. No concerns from nursing. Currently on clear liquid diet, will advance to full liquid at dinner if tolerated. He will be committed either Wednesday or Wednesday. Functional Status: Reports: Pain Controlled, Tolerating Diet, Ambulating, Urinating - Review of Systems General: Reports: No Symptoms. Denies: Fever, Chills HEENT: Reports: No Symptoms Pulmonary: Reports: No Symptoms Cardiovascular: Reports: No Symptoms Gastrointestinal: Reports: Abdominal Pain (improving), Diarrhea (improving), Nausea (only after eating, improving each day). Denies: Constipation, Vomiting Genitourinary: Reports: No Symptoms Musculoskeletal: Reports: No Symptoms Skin: Reports: No Symptoms Neurological: Reports: No Symptoms Psychiatric: Reports: No Symptoms - Patient Data Vitals - Most Recent: Last Vital Signs Temp 97.5 F 01/13/19 11:53 Pulse 97 01/13/19 11:53 Resp 16 01/13/19 11:53 BP 117/85 01/13/19 11:53 Pulse Ox 97 01/13/19 11:53 Weight - Most Recent: 165 lb 1.6 oz I&O - Last 24 Hours: Intake & Output 01/12/19 01/13/19 01/13/19 22:59 06:59 14:59 Intake Total 1400 1835 560 Output Total 300 300 Balance 1100 1535 560 Lab Results Last 24 Hours: Laboratory Results - last 24 hr 01/13/19 01/13/19 01/13/19 Range/Units 05:31 05:31 05:31 WBC 4.54 (4.23-9.07) K/mm3 RBC 4.91 (4.63-6.08) M/mm3 Hgb 16.0 (13.7-17.5) gm/L Hct 47.5 (40.1-51.0) % MCV 96.7 H (79.0-92.2) fl MCH 32.6 H (25.7-32.2) pg MCHC 33.7 (32.2-35.5) g/dl RDW Std Deviation 45.0 H (35.1-43.9) fL Plt Count 199 (163-337) K/mm3 MPV 9.3 L (9.4-12.3) fl Neut % (Auto) 40.4 (34.0-67.9) % Lymph % (Auto) 29.3 (21.8-53.1) % Williams % (Auto) 22.2 H (5.3-12.2) % Eos % (Auto) 4.6 (0.8-7.0) Baso % (Auto) 1.5 H (0.1-1.2) % Neut # (Auto) 1.83 (1.78-5.38) K/mm3 Lymph # (Auto) 1.33 (1.32-3.57) K/mm3 Williams # (Auto) 1.01 H (0.30-0.82) K/mm3 Eos # (Auto) 0.21 (0.04-0.54) K/mm3 Baso # (Auto) 0.07 (0.01-0.08) K/mm3 Manual Slide Review Abnormal smear Sodium 142 (136-145) mEq/L Potassium 4.1 (3.5-5.1) mEq/L Chloride 109 H (98-107) mEq/L Carbon Dioxide 24 (21-32) mEq/L Anion Gap 13.1 (5-15) BUN 6 L (7-18) mg/dL Creatinine 0.9 (0.7-1.3) mg/dL Est Cr Clr Drug Dosing 109.72 mL/min Estimated GFR (MDRD) > 60 (>60) mL/min BUN/Creatinine Ratio 6.7 L (14-18) Glucose 111 H (74-106) mg/dL Lactic Acid (0.4-2.0) mmol/L Calcium 8.4 L (8.5-10.1) mg/dL Magnesium 2.0 (1.8-2.4) mg/dl C-Reactive Protein 4.0 H* (<1.0) mg/dL 01/13/19 Range/Units 05:31 WBC (4.23-9.07) K/mm3 RBC (4.63-6.08) M/mm3 Hgb (13.7-17.5) gm/L Hct (40.1-51.0) % MCV (79.0-92.2) fl MCH (25.7-32.2) pg MCHC (32.2-35.5) g/dl RDW Std Deviation (35.1-43.9) fL Plt Count (163-337) K/mm3 MPV (9.4-12.3) fl Neut % (Auto) (34.0-67.9) % Lymph % (Auto) (21.8-53.1) % Williams % (Auto) (5.3-12.2) % Eos % (Auto) (0.8-7.0) Baso % (Auto) (0.1-1.2) % Neut # (Auto) (1.78-5.38) K/mm3 Lymph # (Auto) (1.32-3.57) K/mm3 Williams # (Auto) (0.30-0.82) K/mm3 Eos # (Auto) (0.04-0.54) K/mm3 Baso # (Auto) (0.01-0.08) K/mm3 Manual Slide Review Sodium (136-145) mEq/L Potassium (3.5-5.1) mEq/L Chloride (98-107) mEq/L Carbon Dioxide (21-32) mEq/L Anion Gap (5-15) BUN (7-18) mg/dL Creatinine (0.7-1.3) mg/dL Est Cr Clr Drug Dosing mL/min Estimated GFR (MDRD) (>60) mL/min BUN/Creatinine Ratio (14-18) Glucose (74-106) mg/dL Lactic Acid 0.5 (0.4-2.0) mmol/L Calcium (8.5-10.1) mg/dL Magnesium (1.8-2.4) mg/dl C-Reactive Protein (<1.0) mg/dL Tamir Results Last 24 Hours: Microbiology 01/11/19 13:00 Stool Culture - Preliminary Stool / Feces Shiga Toxin I - Final NEGATIVE FOR SHIGA TOXIN 1 Shiga Toxin II - Final NEGATIVE FOR SHIGA TOXIN 2 01/12/19 10:36 Influenza Type A Antigen Screen - Final Nasal Aspirate, Unspecified NEGATIVE INFLUENZA A VIRUS AG Influenza Type B Antigen Screen - Final NEGATIVE INFLUENZA B VIRUS AG Med Orders - Current: Current Medications Acetaminophen (Tylenol) 650 mg PO Q4H PRN PRN Reason: Pain (Mild 1-3)/fever Acetaminophen/Butalbital/Caffeine (Fioricet 325-50-40 Mg) 1 tab PO Q6H PRN PRN Reason: Headache Last Admin: 01/12/19 21:05 Dose: 1 tab Albuterol/Ipratropium (Duoneb 3.0-0.5 Mg/3 Ml) 3 ml NEB Q4H PRN PRN Reason: Shortness Of Breath/wheezing Last Admin: 01/11/19 09:52 Dose: 3 ml Chlordiazepoxide HCl (Librium) 25 mg PO TID SOLEDAD Last Admin: 01/13/19 08:28 Dose: 25 mg Clonidine HCl (Catapres) 0.1 mg PO Q4H PRN PRN Reason: Agitation Last Admin: 01/11/19 20:24 Dose: 0.1 mg Famotidine (Pepcid) 20 mg PO BEDTIME SOL[facility] Haloperidol Lactate (Haldol) 2 mg IM Q4H PRN PRN Reason: Agitation Hydralazine HCl (Apresoline) 20 mg IVPUSH Q4H PRN PRN Reason: Hypertension Levofloxacin/Dextrose 500 mg/ (Premix) 100 mls @ 100 mls/hr IV Q24H [facility] Stop: 01/13/19 23:00 Last Admin: 01/12/19 21:08 Dose: 100 mls/hr Metronidazole 500 mg/ Premix 100 mls @ 100 mls/hr IV Q8H [facility] Stop: 01/13/19 16:00 Last Admin: 01/13/19 05:33 Dose: 100 mls/hr Ketorolac Tromethamine (Toradol) 30 mg IVPUSH Q6H PRN PRN Reason: Abdominal Pain Last Admin: 01/13/19 05:36 Dose: 30 mg Lorazepam (Ativan) 0 mg IVPUSH Q4H PRN; Protocol PRN Reason: Withdrawal Symptoms Last Admin: 01/11/19 15:13 Dose: 1 mg Lorazepam (Ativan) 2 mg IVPUSH Q4H PRN PRN Reason: Seizures Metoprolol Tartrate (Lopressor) 5 mg IVPUSH Q4H PRN PRN Reason: Tachycardia Miscellaneous Information (Remove Patch) 1 ea TRDERM DAILY [facility] Last Admin: 01/13/19 08:32 Dose: 1 ea Multivitamins (Thera) 1 each PO DAILY [facility] Last Admin: 01/13/19 08:28 Dose: 1 each Nicotine (Habitrol) 21 mg TRDERM DAILY [facility] Last Admin: 01/13/19 08:32 Dose: 21 mg Ondansetron HCl (Zofran) 4 mg IVPUSH Q6H PRN PRN Reason: Nausea Last Admin: 01/11/19 20:02 Dose: 4 mg Quetiapine Fumarate (Seroquel) 50 mg PO BEDTIME [facility] Last Admin: 01/12/19 21:05 Dose: 50 mg Saccharomyces Boulardii (Florastor) 500 mg PO DAILY [facility] Last Admin: 01/13/19 08:28 Dose: 500 mg Sodium Chloride (Saline Flush) 10 ml FLUSH ASDIRECTED PRN PRN Reason: Keep Vein Open Last Admin: 01/09/19 20:25 Dose: 10 ml Thiamine HCl (Vitamin B-1) 100 mg PO DAILY [facility] Last Admin: 01/13/19 08:28 Dose: 100 mg Topiramate (Topamax) 25 mg PO BID [facility] Last Admin: 01/13/19 08:28 Dose: 25 mg Discontinued Medications Hydrocodone Bitart/Acetaminophen (Cheney 325-5 Mg) 1 tab PO Q4H PRN PRN Reason: Pain (moderate 4-6) Last Admin: 01/12/19 08:16 Dose: 1 tab Diatrizoate Meglum/Diatrizoate Sod (Gastrografin 37%) 90 ml PO ONETIME ONE Stop: 01/09/19 21:46 Last Admin: 01/09/19 22:19 Dose: 90 ml Folic Acid (Folic Acid) 1 mg PO DAILY [facility] Stop: 01/13/19 09:01 Last Admin: 01/13/19 08:28 Dose: 1 mg Hydromorphone HCl (Dilaudid) 0.5 mg IVPUSH ONETIME ONE Stop: 01/09/19 20:09 Last Admin: 01/09/19 20:27 Dose: 0.5 mg Hydromorphone HCl (Dilaudid) 0.5 mg IVPUSH ONETIME ONE Stop: 01/09/19 22:10 Last Admin: 01/09/19 22:19 Dose: 0.5 mg Hydromorphone HCl (Dilaudid) 0.5 mg IVPUSH Q2H PRN PRN Reason: Pain Last Admin: 01/10/19 08:56 Dose: 0.5 mg Hydromorphone HCl (Dilaudid) 1 mg IVPUSH Q4H PRN PRN Reason: Pain Last Admin: 01/12/19 04:38 Dose: 1 mg Sodium Chloride (Normal Saline) 1,000 mls @ 1,000 mls/hr IV .BOLUS STA Stop: 01/09/19 21:06 Last Admin: 01/09/19 20:27 Dose: 1,000 mls/hr Pantoprazole Sodium 80 mg/ (Sodium Chloride) 100 mls @ 10 mls/hr IV Q10H [facility] Last Admin: 01/09/19 20:28 Dose: 10 mls/hr Sodium Chloride (Normal Saline) 1,000 mls @ 100 mls/hr IV ASDIRECTED [facility] Last Admin: 01/10/19 22:13 Dose: 100 mls/hr Thiamine HCl 100 mg/ Sodium (Chloride) 51 mls @ 100 mls/hr IV ONETIME ONE Stop: 01/10/19 10:10 Last Admin: 01/10/19 15:54 Dose: Not Given Potassium Chloride/Dextrose/Sod Cl (D5 Ns With 20 Meq Kcl) 1,000 mls @ 100 mls/ hr IV ASDIRECTED [facility] Last Admin: 01/13/19 00:53 Dose: 100 mls/hr Magnesium Sulfate 2 gm/ Premix 50 mls @ 25 mls/hr IV ONETIME ONE Stop: 01/11/19 10:14 Last Admin: 01/11/19 08:48 Dose: 25 mls/hr Iopamidol (Isovue-300 (61%)) 100 ml IVPUSH ONETIME ONE Stop: 01/09/19 21:46 Last Admin: 01/09/19 22:19 Dose: 100 ml Lorazepam (Ativan) 0 mg IVPUSH Q4H PRN; Protocol PRN Reason: Withdrawal Symptoms Last Admin: 01/11/19 03:09 Dose: 1 mg Lorazepam (Ativan) 2 mg IVPUSH ONETIME ONE Stop: 01/10/19 17:02 Last Admin: 01/10/19 17:56 Dose: 2 mg Magnesium Sulfate (Pharmacy To Dose - Magnesium Replacement) 1 dose .XX ASDIRECTED [facility] Miscellaneous Information (Remove Patch) 0 ea TRDERM ONETIME ONE Stop: 01/13/19 12:31 Ondansetron HCl (Zofran) 4 mg IVPUSH ONETIME ONE Stop: 01/09/19 20:08 Last Admin: 01/09/19 20:24 Dose: 4 mg Pantoprazole Sodium (Protonix Iv) 80 mg IVPUSH BOLUS ONE Stop: 01/09/19 20:17 Last Admin: 01/09/19 20:28 Dose: 80 mg Potassium Chloride (Pharmacy To Dose - Potassium Replacement) 1 dose .XX ASDIRECTED [facility] Potassium Chloride (Klor-Con M20) 40 meq PO Q4H [facility] Stop: 01/11/19 12:16 Last Admin: 01/11/19 11:53 Dose: Not Given Scopolamine (Transderm-Scop) 1.5 mg TRDERM Q72H ONE Stop: 01/10/19 12:27 Last Admin: 01/10/19 12:46 Dose: 1.5 mg Sucralfate (Carafate) 1 gm PO QIDACANDBED [facility] Last Admin: 01/13/19 06:38 Dose: 1 gm Thiamine HCl (Vitamin B-1) 100 mg IVPUSH ONETIME ONE Stop: 01/10/19 10:01 Last Admin: 01/10/19 10:44 Dose: 100 mg - Exam Quality Assessment: DVT Prophylaxis General: Alert, Oriented, Cooperative, No Acute Distress HEENT: Pupils Equal, Pupils Reactive, EOMI, Mucous Membr. Moist/[place] Neck: Supple Lungs: Clear to Auscultation, Normal Respiratory Effort Cardiovascular: Regular Rate, Regular Rhythm GI/Abdominal Exam: Normal Bowel Sounds, Soft, Non-Tender, No Organomegaly, No Distention, No Abnormal Bruit, No Mass, Pelvis Stable (Male) Exam: Deferred Back Exam: Normal Inspection Extremities: Normal Inspection, Normal Range of Motion, Non-Tender, No Pedal Edema, Normal Capillary Refill Peripheral Pulses: 2+: Posterior Tibial (L), Posterior Tibial (R), Dorsalis Pedis (L), Dorsalis Pedis (R) Skin: Warm, Dry, Intact Neurological: No New Focal Deficit Psy/Mental Status: Alert - Problem List & Annotations (1) Alcohol dependence SNOMED Code(s): 99705283 Code(s): F10.20 - ALCOHOL DEPENDENCE, UNCOMPLICATED Status: Acute Priority: High Current Visit: Yes Qualifiers: Substance use status: unspecified alcohol-induced disorder Qualified Code(s ): F10.29 - Alcohol dependence with unspecified alcohol-induced disorder (2) Enteritis SNOMED Code(s): 36187264 Code(s): K52.9 - NONINFECTIVE GASTROENTERITIS AND COLITIS, UNSPECIFIED Status: Acute Priority: High Current Visit: Yes (3) Nausea & vomiting SNOMED Code(s): 09738686 Code(s): R11.2 - NAUSEA WITH VOMITING, UNSPECIFIED Status: Acute Priority : High Current Visit: Yes Qualifiers: Vomiting type: unspecified Vomiting Intractability: non-intractable Qualified Code(s): R11.2 - Nausea with vomiting, unspecified (4) Abdominal pain SNOMED Code(s): 60191630 Code(s): R10.9 - UNSPECIFIED ABDOMINAL PAIN Status: Acute Priority: High Current Visit: Yes Qualifiers: Abdominal location: lower abdomen, unspecified Qualified Code(s): R10.30 - Lower abdominal pain, unspecified - Problem List Review Problem List Initiated/Reviewed/Updated: Yes - Plan Plan:: Assessment/Plan: Acute: Enteritis, Improving - Unclear in etiology; Could be Viral - Having watery diarrhea - No recent travel and denies any unusual diet or drinks - Denies any hx/o auto-immune disease - Afebrile and no leukocytosis - CT scan report reads several loops of mildly prominent small bowel wall thickening within he left upper abdomen - He is getting 0.5 mg IV Dilaudid but does not seem to cut his pain; will increase dose of pain medication --> Toradol only now - CRP 9.8--> 7.2--> 4 - C. Diff, Stool Studies and H. Pylori--> negative - DDx: Idiopathic, Cannabinoid Hyperemesis Syndrome, Auto-immune, and Infectious Enteritis (pending stool studies) Abdominal Pain, Improving - Gastris vs Esophagitis/ PUD - Risk factors: Chronic ETOH Use +/- NSAIDs Use - Currently on PPI drip; will add Sucralfate QID - Still nauseous and actively vomiting but w/o hematemesis or rectal bleed-- > now only nausea - PRN anti-emetic meds - consult with Dr. Rhodes: - Lipase WNL, Amylase pending - Abdominal U/S: - 1. Small area of focal fatty sparing within the left lobe of the liver. - 2. Hypoechoic head of the pancreas either artifact or due to slight edema if patient has laboratory findings of pancreatitis. - 3. No additional abnormality is seen on abdominal ultrasound exam. - Endoscopy if deemed necessary ETOH Abuse/Use plus Substance Abuse - ANTONETTE level 0.03 - UDS positive for Meth and THC - CIWAA Protocol plus associated treatment regimen - Thiamine, Folic Acid and MVI - Mild-Moderately Anxious - Tele-psych and SAC--> He has been committed for SA treatment [facility] Resolved: Hypokalemia - K 3.4-->4.1 - 2/2 GI Loss - Replete and Monitor Chronic: Hx/o Hematuria Substance Abuse Active Smoker, Offered Nicotine Patch Daily Plan: Admit to ICU Routine AM Labs [facility]WAA Protocol IVF for maintenance PPI drip and Carafate Consider IV antibiotics if CRP is elevated and if continues to be symptomatic NPO--> clear liquid --> full liquid (advance as tolerated) Aspiration and Seizure Precautions DVT PPx: SCDs Additional orders as above SW/CM for D/c planning Code Status: 1
--- NOTE | 2019-01-13 14:18 | CONS ---
CONSULTING PHYSICIAN: Dustin Kennedy MD DATE OF CONSULTATION: 01/11/2019 This is a 60-minute inpatient telemedicine event. Site where the services are provided to is [facility] in [place], [place]. Site where the services are provided from is offices in [facility]. Length of service for this 60-minute inpatient telemedicine event is 60 minutes. IDENTIFICATION: The patient is a 43-year-old male who is admitted to the [facility] MICU in [place], [place]. He is seen for psychiatric evaluation per the request of his staff attending, Dr. Duff and her treatment team. CHIEF COMPLAINT: "Very, very sharp pains in my chest." HISTORY OF PRESENT ILLNESS: The patient is a 43-year-old male who was admitted to the MICU at [facility] in [place], [place] on 01/10/2019 for possible complications of GI upset and chest pain that upon further workup by the treatment team appeared to be caused by a combination of enteritis and possible alcohol withdrawal symptoms. On interview, the patient is acknowledging that he has been abusing alcohol, marijuana, and meth. He states that he is very tired of using the alcohol and the illicit substances and states his intention if he gets sober going forward. He states "I am on a list to go to [facility] in [place]." He states most recently, he has been using about 12 to 18 beers per day, noting "it has gotten to that point." He states he has tried to quit in the past. He has had a hard time doing it, but he feels that if he can get into [facility] that will be what he needs because "it is a long-term place where I can go there and they teach me how to live my life" in a better way. The patient is denying that he is suicidal or homicidal. He denies any psychotic, delusional, or paranoid symptoms. He does not feel that he needs any psychiatric treatment at this point in time, but rather states that if he can just get sober, he will feel a lot better and be a lot less frustrated. He does acknowledge he has been in the hospital under similar circumstances, but states at this time, he is serious about getting sober and also understands doctors explained to him that if he is unable to maintain sobriety on his own and he comes back in a similar circumstance that the situation may be taken out of his hands in terms of being placed in treatment and he states that he is definitely understanding that, but he has been in treatment about 10 to 15 times in the past and it has never worked for him, that is why he wants to try [facility] "because it is a different kind of way" of helping a person maintain sobriety. MEDICATIONS: At the time of presentation, none. ALLERGIES: Penicillin. PAST MEDICAL HISTORY: Status post broken back in 2018, where the patient fractured his L2-L4 vertebrae. REVIEW OF SYSTEMS: Aside from musculoskeletal and current GI issues, all other major organ systems are negative at this point in time for acute difficulties or complications. FAMILY PSYCHIATRIC AND CD HISTORY: The patient reports mother had a history of alcoholism. He has 4 siblings also that struggled with mental health issues and chemical dependency issues. PAST PSYCHIATRIC AND CD HISTORY: The patient denies any previous psychiatric hospitalizations. Again, he is noting about 10 to 15 chemical dependency treatments in the past for alcohol. He reports he has been in detox in the past. He has 1 DWI from 2018. He states his longest sobriety has been for 6 years from 2006 to 2012. SOCIAL HISTORY: The patient was born in [place], [place] and raised in [place]. He has 5 siblings. He has been x1, x1. He has 3 daughters, 2 from marriage, 1 from a previous relationship. He has 2 grandkids as well. 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 Denies any prior service. He has some legal issues stemming from child support. He is a loser in terms of his norma formation. He enjoys hunting, fishing, and outdoor activities in general. MENTAL STATUS EXAM: The patient is a 43-year-old white male, in no apparent distress. Speech is of regular rate and rhythm. The patient is cognitively oriented. Psychomotor activity is within normal limits. There are no abnormal motor movements or tics observed. Gait and station are not observed. This patient is lying in bed during the inpatient telemedicine consult. Mood is tired, but good overall as the patient is reporting he has a sense of relief that he is going to be going to [facility]. Affect is cooperative overall for the purposes of the inpatient telemedicine consult. There is no behavioral or stated evidence of acute suicidal or homicidal ideation or acute psychotic, delusional, or paranoid symptoms. Thought processes appear organized. There are no manic symptoms or loose associations evident. Judgment and insight appear unimpaired at this point. Motivation for help appears fair to good. VITAL SIGNS: 127/89, 94, 18, 98.6 degrees. IMPRESSION: 1. Stow I: a. Alcohol dependence, F10.20. b. Cannabis and meth abuse versus dependence. 2. Stow II: None. 3. Stow III: a. Status post broken back in 2018. b. History of recent enteritis. c. Possible symptoms of alcohol withdrawal. 4. Stow IV: Severe. 5. Stow V: 55. PLAN: 1. Sobriety. 2. AA rep to visit the patient while on unit. 3. Pastoral guidance. 4. Recommend that the patient be transferred to [facility] when medically stabilized. 5. CD consult to help in this regard. 6. Ativan per [facility]WA protocol. 7. Seroquel at bedtime while on unit to help with clarity of thought and prophylaxis of any psychotic symptoms developing from possible alcohol withdrawal. 8. Topamax also while on unit to help with seizure prophylaxis, mood stability, and anxiety reduction. 9. Folic acid supplementation. 10.Thiamine supplementation. 11.We will continue followup with the patient on an as-needed basis while he remains on the inpatient MICU. 12.We will follow up with the patient sooner if any complications in the interim. 13.I did review with the patient that if he has any similar presentations coming back and is unable to maintain sobriety on his own, that possible commitment proceedings may have to be initiated to help him with maintaining his health and safety going forward in the light of his chemical addictions and he acknowledges his understanding of these facts. 14.Recommend the patient to follow up with Outpatient Psychiatry if there is any deterioration or changes in mood while the patient is maintaining sobriety. 15.Crisis plan is in place. MMMARCELA /[id number]
[2019-01-13] MEDS: Benzocaine/Cetylpyridinium/Menthol Lozenge MUCMEM PRN (20:23)
[2019-01-13] MEDS: Levofloxacin/Dextrose 5%-Water 500 MG in Premix Bag 1 BAG IV SCH (20:23)
[2019-01-13] MEDS ORDERED: Famotidine 20 MG Tab PO SCH (21:00)
[2019-01-13] MEDS: QUEtiapine 25 MG Tab PO SCH (21:29)
[2019-01-14] MEDS: Thiamine 100 MG Tab PO SCH (08:20)
[2019-01-14] MEDS: Topiramate 25 MG Tab PO SCH ×2 (08:20→21:38)
[2019-01-14] MEDS: Saccharomyces Boulardii (Probiotic) 250 MG Cap PO SCH (08:20)
[2019-01-14] MEDS: Nicotine 21 MG/24 Hr Patch TRDERM SCH (08:20)
[2019-01-14] MEDS: chlordiazePOXIDE 25 MG Cap PO SCH ×2 (08:20→21:38)
[2019-01-14] MEDS: Multivitamins,Therapeutic Tab PO SCH (08:20)
--- NOTE | 2019-01-14 10:04 | PCM.PN ---
- General Info Date of Service: 01/14/19 Subjective Update: Decreased c/o abdominal pain and the need for pain meds; started on Pepcid Functional Status: Reports: Pain Controlled, Tolerating Diet, Ambulating, Urinating - Review of Systems General: Reports: No Symptoms HEENT: Reports: No Symptoms Pulmonary: Reports: No Symptoms Cardiovascular: Reports: No Symptoms Gastrointestinal: Reports: No Symptoms Genitourinary: Reports: No Symptoms Musculoskeletal: Reports: No Symptoms Skin: Reports: No Symptoms Neurological: Reports: No Symptoms Psychiatric: Reports: No Symptoms - Patient Data Vitals - Most Recent: Last Vital Signs Temp 35.8 C 01/14/19 08:19 Pulse 92 01/14/19 08:19 Resp 15 01/14/19 08:19 BP 106/79 01/14/19 08:19 Pulse Ox 97 01/14/19 08:19 Weight - Most Recent: 74.389 kg I&O - Last 24 Hours: Intake & Output 01/13/19 01/14/19 01/14/19 22:59 06:59 14:59 Intake Total 2300 100 Output Total 300 Balance 2000 100 Lab Results Last 24 Hours: Laboratory Results - last 24 hr 01/13/19 01/13/19 01/14/19 Range/Units 05:31 13:00 05:48 Lactic Acid (0.4-2.0) mmol/L C-Reactive Protein 2.7 H* (<1.0) mg/dL Amylase 40 (25-115) U/L Urine Opiates Screen Negative (GVVQOW=793) Ur Buprenorphine Scrn Negative (CUTOFF=10) Ur Oxycodone Screen Negative (UDD9CT=497) Urine Methadone Screen Negative (THG9WI=202) Ur Propoxyphene Screen Negative (TFARBU=718) Ur Barbiturates Screen Presumptive positive H (EOAXTG=757) Ur Tricyclics Screen Negative (RSFSWG=846) Ur Phencyclidine Scrn Negative (CUTOFF=25) Ur Amphetamine Screen Negative (QLZAFA=935) U Methamphetamines Scrn Negative (BLVWPT=488) U Benzodiazepines Scrn Presumptive positive H (NYBKJR=776) U Cocaine Metab Screen Negative (NKNVPG=093) U Marijuana (THC) Screen Presumptive positive H (CUTOFF=50) 01/14/19 Range/Units 05:48 Lactic Acid 0.7 (0.4-2.0) mmol/L C-Reactive Protein (<1.0) mg/dL Amylase (25-115) U/L Urine Opiates Screen (LTZRZW=550) Ur Buprenorphine Scrn (CUTOFF=10) Ur Oxycodone Screen (JZK4QA=792) Urine Methadone Screen (CRR1LZ=305) Ur Propoxyphene Screen (XYRHDU=247) Ur Barbiturates Screen (LMLHUW=600) Ur Tricyclics Screen (OYUFQF=940) Ur Phencyclidine Scrn (CUTOFF=25) Ur Amphetamine Screen (HITEET=873) U Methamphetamines Scrn (CMVHCK=058) U Benzodiazepines Scrn (HYJLDM=264) U Cocaine Metab Screen (WLYYGX=165) U Marijuana (THC) Screen (CUTOFF=50) Tamir Results Last 24 Hours: Microbiology 01/11/19 13:00 Stool Culture - Final Stool / Feces Shiga Toxin I - Final NEGATIVE FOR SHIGA TOXIN 1 Shiga Toxin II - Final NEGATIVE FOR SHIGA TOXIN 2 Med Orders - Current: Current Medications Acetaminophen (Tylenol) 650 mg PO Q4H PRN PRN Reason: Pain (Mild 1-3)/fever Acetaminophen/Butalbital/Caffeine (Fioricet 325-50-40 Mg) 1 tab PO Q6H PRN PRN Reason: Headache Last Admin: 01/12/19 21:05 Dose: 1 tab Albuterol/Ipratropium (Duoneb 3.0-0.5 Mg/3 Ml) 3 ml NEB Q4H PRN PRN Reason: Shortness Of Breath/wheezing Last Admin: 01/11/19 09:52 Dose: 3 ml Benzocaine/Menthol (Cepacol Sore Throat) 1 lozenge MUCMEM Q2HR PRN PRN Reason: Sore Throat Last Admin: 01/13/19 20:23 Dose: 1 lozenge Chlordiazepoxide HCl (Librium) 25 mg PO TID SOLEDAD Last Admin: 01/14/19 08:20 Dose: 25 mg Clonidine HCl (Catapres) 0.1 mg PO Q4H PRN PRN Reason: Agitation Last Admin: 01/11/19 20:24 Dose: 0.1 mg Famotidine (Pepcid) 20 mg PO BEDTIME SOLEDAD Last Admin: 01/13/19 21:29 Dose: 20 mg Haloperidol Lactate (Haldol) 2 mg IM Q4H PRN PRN Reason: Agitation Hydralazine HCl (Apresoline) 20 mg IVPUSH Q4H PRN PRN Reason: Hypertension Ketorolac Tromethamine (Toradol) 30 mg IVPUSH Q6H PRN PRN Reason: Abdominal Pain Last Admin: 01/13/19 21:31 Dose: 30 mg Lorazepam (Ativan) 0 mg IVPUSH Q4H PRN; Protocol PRN Reason: Withdrawal Symptoms Last Admin: 01/11/19 15:13 Dose: 1 mg Lorazepam (Ativan) 2 mg IVPUSH Q4H PRN PRN Reason: Seizures Metoprolol Tartrate (Lopressor) 5 mg IVPUSH Q4H PRN PRN Reason: Tachycardia Miscellaneous Information (Remove Patch) 1 ea TRDERM DAILY [facility] Last Admin: 01/14/19 08:21 Dose: 1 ea Multivitamins (Thera) 1 each PO DAILY [facility] Last Admin: 01/14/19 08:20 Dose: 1 each Nicotine (Habitrol) 21 mg TRDERM DAILY [facility] Last Admin: 01/14/19 08:20 Dose: 21 mg Ondansetron HCl (Zofran) 4 mg IVPUSH Q6H PRN PRN Reason: Nausea Last Admin: 01/11/19 20:02 Dose: 4 mg Quetiapine Fumarate (Seroquel) 50 mg PO BEDTIME [facility] Last Admin: 01/13/19 21:29 Dose: 50 mg Saccharomyces Boulardii (Florastor) 500 mg PO DAILY [facility] Last Admin: 01/14/19 08:20 Dose: 500 mg Sodium Chloride (Saline Flush) 10 ml FLUSH ASDIRECTED PRN PRN Reason: Keep Vein Open Last Admin: 01/09/19 20:25 Dose: 10 ml Thiamine HCl (Vitamin B-1) 100 mg PO DAILY [facility] Last Admin: 01/14/19 08:20 Dose: 100 mg Topiramate (Topamax) 25 mg PO BID [facility] Last Admin: 01/14/19 08:20 Dose: 25 mg Discontinued Medications Hydrocodone Bitart/Acetaminophen (Haynes 325-5 Mg) 1 tab PO Q4H PRN PRN Reason: Pain (moderate 4-6) Last Admin: 01/12/19 08:16 Dose: 1 tab Diatrizoate Meglum/Diatrizoate Sod (Gastrografin 37%) 90 ml PO ONETIME ONE Stop: 01/09/19 21:46 Last Admin: 01/09/19 22:19 Dose: 90 ml Folic Acid (Folic Acid) 1 mg PO DAILY SOLEDAD Stop: 01/13/19 09:01 Last Admin: 01/13/19 08:28 Dose: 1 mg Hydromorphone HCl (Dilaudid) 0.5 mg IVPUSH ONETIME ONE Stop: 01/09/19 20:09 Last Admin: 01/09/19 20:27 Dose: 0.5 mg Hydromorphone HCl (Dilaudid) 0.5 mg IVPUSH ONETIME ONE Stop: 01/09/19 22:10 Last Admin: 01/09/19 22:19 Dose: 0.5 mg Hydromorphone HCl (Dilaudid) 0.5 mg IVPUSH Q2H PRN PRN Reason: Pain Last Admin: 01/10/19 08:56 Dose: 0.5 mg Hydromorphone HCl (Dilaudid) 1 mg IVPUSH Q4H PRN PRN Reason: Pain Last Admin: 01/12/19 04:38 Dose: 1 mg Sodium Chloride (Normal Saline) 1,000 mls @ 1,000 mls/hr IV .BOLUS STA Stop: 01/09/19 21:06 Last Admin: 01/09/19 20:27 Dose: 1,000 mls/hr Pantoprazole Sodium 80 mg/ (Sodium Chloride) 100 mls @ 10 mls/hr IV Q10H [facility] Last Admin: 01/09/19 20:28 Dose: 10 mls/hr Sodium Chloride (Normal Saline) 1,000 mls @ 100 mls/hr IV ASDIRECTED [facility] Last Admin: 01/10/19 22:13 Dose: 100 mls/hr Thiamine HCl 100 mg/ Sodium (Chloride) 51 mls @ 100 mls/hr IV ONETIME ONE Stop: 01/10/19 10:10 Last Admin: 01/10/19 15:54 Dose: Not Given Levofloxacin/Dextrose 500 mg/ (Premix) 100 mls @ 100 mls/hr IV Q24H SOLEDAD Stop: 01/13/19 23:00 Last Admin: 01/13/19 20:23 Dose: 100 mls/hr Metronidazole 500 mg/ Premix 100 mls @ 100 mls/hr IV Q8H SOLEDAD Stop: 01/13/19 16:00 Last Admin: 01/13/19 14:13 Dose: 100 mls/hr Potassium Chloride/Dextrose/Sod Cl (D5 Ns With 20 Meq Kcl) 1,000 mls @ 100 mls/ hr IV ASDIRECTED [facility] Last Admin: 01/13/19 00:53 Dose: 100 mls/hr Magnesium Sulfate 2 gm/ Premix 50 mls @ 25 mls/hr IV ONETIME ONE Stop: 01/11/19 10:14 Last Admin: 01/11/19 08:48 Dose: 25 mls/hr Iopamidol (Isovue-300 (61%)) 100 ml IVPUSH ONETIME ONE Stop: 01/09/19 21:46 Last Admin: 01/09/19 22:19 Dose: 100 ml Lorazepam (Ativan) 0 mg IVPUSH Q4H PRN; Protocol PRN Reason: Withdrawal Symptoms Last Admin: 01/11/19 03:09 Dose: 1 mg Lorazepam (Ativan) 2 mg IVPUSH ONETIME ONE Stop: 01/10/19 17:02 Last Admin: 01/10/19 17:56 Dose: 2 mg Magnesium Sulfate (Pharmacy To Dose - Magnesium Replacement) 1 dose .XX ASDIRECTED [facility] Miscellaneous Information (Remove Patch) 0 ea TRDERM ONETIME ONE Stop: 01/13/19 12:31 Last Admin: 01/13/19 12:30 Dose: 1 ea Ondansetron HCl (Zofran) 4 mg IVPUSH ONETIME ONE Stop: 01/09/19 20:08 Last Admin: 01/09/19 20:24 Dose: 4 mg Pantoprazole Sodium (Protonix Iv) 80 mg IVPUSH BOLUS ONE Stop: 01/09/19 20:17 Last Admin: 01/09/19 20:28 Dose: 80 mg Potassium Chloride (Pharmacy To Dose - Potassium Replacement) 1 dose .XX ASDIRECTED [facility] Potassium Chloride (Klor-Con M20) 40 meq PO Q4H [facility] Stop: 01/11/19 12:16 Last Admin: 01/11/19 11:53 Dose: Not Given Scopolamine (Transderm-Scop) 1.5 mg TRDERM Q72H ONE Stop: 01/10/19 12:27 Last Admin: 01/10/19 12:46 Dose: 1.5 mg Sucralfate (Carafate) 1 gm PO QIDACANDBED [facility] Last Admin: 01/13/19 06:38 Dose: 1 gm Thiamine HCl (Vitamin B-1) 100 mg IVPUSH ONETIME ONE Stop: 01/10/19 10:01 Last Admin: 01/10/19 10:44 Dose: 100 mg - Exam Quality Assessment: DVT Prophylaxis General: Alert, Oriented, Cooperative, No Acute Distress HEENT: Pupils Equal, Pupils Reactive, EOMI Neck: Trachea Midline, No JVD Lungs: Normal Respiratory Effort Cardiovascular: Regular Rate GI/Abdominal Exam: Normal Bowel Sounds, Soft, No Organomegaly, No Distention, Tender (epigastric) (Male) Exam: Deferred Back Exam: Normal Inspection Extremities: Normal Inspection, Non-Tender, Normal Capillary Refill Skin: Warm Neurological: No New Focal Deficit Psy/Mental Status: Alert, Normal Affect, Normal Mood - Problem List Review Problem List Initiated/Reviewed/Updated: Yes - My Orders Last 24 Hours: My Active Orders 01/13/19 13:00 AMPHET/METH EXT CONF (GCMS) Stat CANNABINOID (THC) CONFIRM, UR Routine OPIATE CONF (FOUR DRUGS), UR Stat 01/13/19 13:59 Patient Status [ADT] Routine 01/13/19 21:00 Famotidine [Pepcid] 20 mg PO BEDTIME 01/13/19 Dinner Full Liquid Diet [DIET] 01/15/19 05:00 BASIC METABOLIC PANEL,BMP [CHEM] DAILY CBC WITH AUTO DIFF [HEME] DAILY CRP [C-REACTIVE PROTEIN] [CHEM] DAILY LIPASE [CHEM] DAILY MAGNESIUM [CHEM] DAILY 01/15/19 05:11 LACTIC ACID [CHEM] DAILY 01/16/19 05:00 BASIC METABOLIC PANEL,BMP [CHEM] DAILY CBC WITH AUTO DIFF [HEME] DAILY LIPASE [CHEM] DAILY MAGNESIUM [CHEM] DAILY 01/17/19 05:00 BASIC METABOLIC PANEL,BMP [CHEM] DAILY CBC WITH AUTO DIFF [HEME] DAILY LIPASE [CHEM] DAILY MAGNESIUM [CHEM] DAILY 01/18/19 05:00 BASIC METABOLIC PANEL,BMP [CHEM] DAILY CBC WITH AUTO DIFF [HEME] DAILY LIPASE [CHEM] DAILY MAGNESIUM [CHEM] DAILY - Plan Plan:: Assessment/Plan: Acute: Enteritis, Improving - Unclear in etiology; Could be Viral - Having watery diarrhea - No recent travel and denies any unusual diet or drinks - Denies any hx/o auto-immune disease - Afebrile and no leukocytosis - CT scan report reads several loops of mildly prominent small bowel wall thickening within he left upper abdomen - He is getting 0.5 mg IV Dilaudid but does not seem to cut his pain; will increase dose of pain medication --> Toradol only now - CRP 9.8--> 7.2--> 4 - C. Diff, Stool Studies and H. Pylori--> negative - DDx: Idiopathic, Cannabinoid Hyperemesis Syndrome, Auto-immune, and Infectious Enteritis (pending stool studies) Abdominal Pain, Improving - Gastris vs Esophagitis/ PUD - Risk factors: Chronic ETOH Use +/- NSAIDs Use - Currently on PPI drip; will add Sucralfate QID - Still nauseous and actively vomiting but w/o hematemesis or rectal bleed-- > now only nausea - PRN anti-emetic meds - GS consult with Dr. Rhodes: - Lipase WNL, Amylase pending - Abdominal U/S: - 1. Small area of focal fatty sparing within the left lobe of the liver. - 2. Hypoechoic head of the pancreas either artifact or due to slight edema if patient has laboratory findings of pancreatitis. - 3. No additional abnormality is seen on abdominal ultrasound exam. - Endoscopy if deemed necessary ETOH Abuse/Use plus Substance Abuse - ANTONETTE level 0.03 - UDS positive for Meth and THC - CIWAA Protocol plus associated treatment regimen - Thiamine, Folic Acid and MVI - Mild-Moderately Anxious - Tele-psych and SAC--> He has been committed for SA treatment [facility] Resolved: Hypokalemia - K 3.4-->4.1 - 2/2 GI Loss - Replete and Monitor Chronic: Hx/o Hematuria Substance Abuse Active Smoker, Offered Nicotine Patch Daily Plan: Admit to ICU-->MS w/ Tele Routine AM Labs CIWAA Protocol--stopped IVF for maintenance--stopped PPI orally Consider IV antibiotics if CRP is elevated and if continues to be symptomatic; ATB stopped 01/13/19. NPO--> clear liquid --> full liquid (advance as tolerated)--->soft Aspiration and Seizure Precautions DVT PPx: SCDs Additional orders as above SW/CM for D/c planning Code Status: 1
[2019-01-14] MEDS ORDERED: Ketorolac 15 MG/ML SDV IVPUSH PRN (10:54)
[2019-01-14] MEDS ORDERED: Acetaminophen 325 MG Tab PO PRN (10:56)
[2019-01-14] MEDS ORDERED: LORazepam 2 MG/ML SDV IVPUSH PRN (10:57)
[2019-01-14] MEDS: Benzocaine/Cetylpyridinium/Menthol Lozenge MUCMEM PRN (15:31)
[2019-01-14] MEDS ORDERED: diphenhydrAMINE 50 MG/ML SDV IVPUSH ONE (20:00)
[2019-01-14] MEDS: QUEtiapine 25 MG Tab PO SCH (21:37)
[2019-01-14] MEDS: Famotidine 20 MG Tab PO SCH (21:37)
[2019-01-15] MEDS: Saccharomyces Boulardii (Probiotic) 250 MG Cap PO SCH (09:05)
[2019-01-15] MEDS: Thiamine 100 MG Tab PO SCH (09:05)
[2019-01-15] MEDS: Multivitamins,Therapeutic Tab PO SCH (09:05)
[2019-01-15] MEDS: Nicotine 21 MG/24 Hr Patch TRDERM SCH (09:05)
[2019-01-15] MEDS: Topiramate 25 MG Tab PO SCH ×2 (09:06→22:07)
[2019-01-15] MEDS: chlordiazePOXIDE 25 MG Cap PO SCH (09:06)
--- NOTE | 2019-01-15 09:54 | PCM.PN ---
- General Info Date of Service: 01/15/19 Functional Status: Reports: Pain Controlled, Tolerating Diet, Ambulating, Urinating - Review of Systems General: Reports: No Symptoms HEENT: Reports: No Symptoms Pulmonary: Reports: No Symptoms Cardiovascular: Reports: No Symptoms Gastrointestinal: Reports: No Symptoms Genitourinary: Reports: No Symptoms Musculoskeletal: Reports: No Symptoms Skin: Reports: No Symptoms Neurological: Reports: No Symptoms Psychiatric: Reports: No Symptoms - Patient Data Vitals - Most Recent: Last Vital Signs Temp 36.7 C 01/15/19 09:00 Pulse 93 01/15/19 09:00 Resp 16 01/15/19 09:00 BP 110/76 01/15/19 09:00 Pulse Ox 99 01/15/19 09:00 Weight - Most Recent: 75.568 kg I&O - Last 24 Hours: Intake & Output 01/14/19 01/15/19 01/15/19 22:59 06:59 14:59 Intake Total 990 300 Balance 990 300 Lab Results Last 24 Hours: Laboratory Results - last 24 hr 01/15/19 01/15/19 01/15/19 Range/Units 05:38 05:38 05:38 WBC 6.62 (4.23-9.07) K/mm3 RBC 5.2 (4.63-6.08) M/mm3 Hgb 17.2 (13.7-17.5) gm/L Hct 49.4 (40.1-51.0) % MCV 95.0 H (79.0-92.2) fl MCH 33.1 H (25.7-32.2) pg MCHC 34.8 (32.2-35.5) g/dl RDW Std Deviation 43.5 (35.1-43.9) fL Plt Count 277 (163-337) K/mm3 MPV 9.1 L (9.4-12.3) fl Neut % (Auto) 42.4 (34.0-67.9) % Lymph % (Auto) 29.3 (21.8-53.1) % [place] % (Auto) 19.9 H (5.3-12.2) % Eos % (Auto) 3.3 (0.8-7.0) Baso % (Auto) 1.2 (0.1-1.2) % Neut # (Auto) 2.80 (1.78-5.38) K/mm3 Lymph # (Auto) 1.94 (1.32-3.57) K/mm3 [place] # (Auto) 1.32 H (0.30-0.82) K/mm3 Eos # (Auto) 0.22 (0.04-0.54) K/mm3 Baso # (Auto) 0.08 (0.01-0.08) K/mm3 Manual Slide Review Normal smear Sodium 140 (136-145) mEq/L Potassium 3.9 (3.5-5.1) mEq/L Chloride 106 (98-107) mEq/L Carbon Dioxide 25 (21-32) mEq/L Anion Gap 12.9 (5-15) BUN 11 (7-18) mg/dL Creatinine 1.2 (0.7-1.3) mg/dL Est Cr Clr Drug Dosing 81.79 mL/min Estimated GFR (MDRD) > 60 (>60) mL/min BUN/Creatinine Ratio 9.2 L (14-18) Glucose 105 (74-106) mg/dL Lactic Acid 0.6 (0.4-2.0) mmol/L Calcium 9.1 (8.5-10.1) mg/dL Magnesium 1.8 (1.8-2.4) mg/dl C-Reactive Protein 1.8 H* (<1.0) mg/dL Lipase 129 (73-393) U/L Tamir Results Last 24 Hours: Microbiology 01/11/19 13:00 Stool Culture - Final Stool / Feces Shiga Toxin I - Final NEGATIVE FOR SHIGA TOXIN 1 Shiga Toxin II - Final NEGATIVE FOR SHIGA TOXIN 2 Med Orders - Current: Current Medications Acetaminophen (Tylenol) 650 mg PO Q6H PRN PRN Reason: Pain (Mild 1-3)/fever Albuterol/Ipratropium (Duoneb 3.0-0.5 Mg/3 Ml) 3 ml NEB Q4H PRN PRN Reason: Shortness Of Breath/wheezing Last Admin: 01/11/19 09:52 Dose: 3 ml Benzocaine/Menthol (Cepacol Sore Throat) 1 lozenge MUCMEM Q2HR PRN PRN Reason: Sore Throat Last Admin: 01/14/19 15:31 Dose: 1 lozenge Chlordiazepoxide HCl (Librium) 25 mg PO BID [facility] Last Admin: 01/15/19 09:06 Dose: 25 mg Diphenhydramine HCl (Benadryl) 25 mg IVPUSH Q6H PRN PRN Reason: Itching Famotidine (Pepcid) 40 mg PO BEDTIME [facility] Last Admin: 01/14/19 21:37 Dose: 40 mg Haloperidol Lactate (Haldol) 2 mg IM Q4H PRN PRN Reason: Agitation Hydralazine HCl (Apresoline) 20 mg IVPUSH Q4H PRN PRN Reason: Hypertension Ketorolac Tromethamine (Toradol) 15 mg IVPUSH Q8H PRN PRN Reason: Abdominal Pain Lorazepam (Ativan) 0 mg IVPUSH Q4H PRN; Protocol PRN Reason: Withdrawal Symptoms Last Admin: 01/11/19 15:13 Dose: 1 mg Lorazepam (Ativan) 2 mg IVPUSH Q6H PRN PRN Reason: Seizures Miscellaneous Information (Remove Patch) 1 ea TRDERM DAILY [facility] Last Admin: 01/15/19 09:06 Dose: 1 ea Multivitamins (Thera) 1 each PO DAILY [facility] Last Admin: 01/15/19 09:05 Dose: 1 each Nicotine (Habitrol) 21 mg TRDERM DAILY [facility] Last Admin: 01/15/19 09:05 Dose: 21 mg Ondansetron HCl (Zofran) 4 mg IVPUSH Q6H PRN PRN Reason: Nausea Last Admin: 01/11/19 20:02 Dose: 4 mg Quetiapine Fumarate (Seroquel) 50 mg PO BEDTIME [facility] Last Admin: 01/14/19 21:37 Dose: 50 mg Saccharomyces Boulardii (Florastor) 250 mg PO DAILY [facility] Last Admin: 01/15/19 09:05 Dose: 250 mg Sodium Chloride (Saline Flush) 10 ml FLUSH ASDIRECTED PRN PRN Reason: Keep Vein Open Last Admin: 01/09/19 20:25 Dose: 10 ml Thiamine HCl (Vitamin B-1) 100 mg PO DAILY [facility] Last Admin: 01/15/19 09:05 Dose: 100 mg Topiramate (Topamax) 25 mg PO BID [facility] Last Admin: 01/15/19 09:06 Dose: 25 mg Discontinued Medications Acetaminophen (Tylenol) 650 mg PO Q4H PRN PRN Reason: Pain (Mild 1-3)/fever Acetaminophen/Butalbital/Caffeine (Fioricet 325-50-40 Mg) 1 tab PO Q6H PRN PRN Reason: Headache Last Admin: 01/12/19 21:05 Dose: 1 tab Hydrocodone Bitart/Acetaminophen (Arbon 325-5 Mg) 1 tab PO Q4H PRN PRN Reason: Pain (moderate 4-6) Last Admin: 01/12/19 08:16 Dose: 1 tab Chlordiazepoxide HCl (Librium) 25 mg PO TID [facility] Last Admin: 01/14/19 08:20 Dose: 25 mg Clonidine HCl (Catapres) 0.1 mg PO Q4H PRN PRN Reason: Agitation Last Admin: 01/11/19 20:24 Dose: 0.1 mg Diatrizoate Meglum/Diatrizoate Sod (Gastrografin 37%) 90 ml PO ONETIME ONE Stop: 01/09/19 21:46 Last Admin: 01/09/19 22:19 Dose: 90 ml Diphenhydramine HCl (Benadryl) 50 mg IVPUSH ONETIME ONE Stop: 01/14/19 20:01 Last Admin: 01/14/19 21:39 Dose: 50 mg Famotidine (Pepcid) 20 mg PO BEDTIME [facility] Last Admin: 01/13/19 21:29 Dose: 20 mg Folic Acid (Folic Acid) 1 mg PO DAILY [facility] Stop: 01/13/19 09:01 Last Admin: 01/13/19 08:28 Dose: 1 mg Hydromorphone HCl (Dilaudid) 0.5 mg IVPUSH ONETIME ONE Stop: 01/09/19 20:09 Last Admin: 01/09/19 20:27 Dose: 0.5 mg Hydromorphone HCl (Dilaudid) 0.5 mg IVPUSH ONETIME ONE Stop: 01/09/19 22:10 Last Admin: 01/09/19 22:19 Dose: 0.5 mg Hydromorphone HCl (Dilaudid) 0.5 mg IVPUSH Q2H PRN PRN Reason: Pain Last Admin: 01/10/19 08:56 Dose: 0.5 mg Hydromorphone HCl (Dilaudid) 1 mg IVPUSH Q4H PRN PRN Reason: Pain Last Admin: 01/12/19 04:38 Dose: 1 mg Sodium Chloride (Normal Saline) 1,000 mls @ 1,000 mls/hr IV .BOLUS STA Stop: 01/09/19 21:06 Last Admin: 01/09/19 20:27 Dose: 1,000 mls/hr Pantoprazole Sodium 80 mg/ (Sodium Chloride) 100 mls @ 10 mls/hr IV Q10H [facility] Last Admin: 01/09/19 20:28 Dose: 10 mls/hr Sodium Chloride (Normal Saline) 1,000 mls @ 100 mls/hr IV ASDIRECTED [facility] Last Admin: 01/10/19 22:13 Dose: 100 mls/hr Thiamine HCl 100 mg/ Sodium (Chloride) 51 mls @ 100 mls/hr IV ONETIME ONE Stop: 01/10/19 10:10 Last Admin: 01/10/19 15:54 Dose: Not Given Levofloxacin/Dextrose 500 mg/ (Premix) 100 mls @ 100 mls/hr IV Q24H [facility] Stop: 01/13/19 23:00 Last Admin: 01/13/19 20:23 Dose: 100 mls/hr Metronidazole 500 mg/ Premix 100 mls @ 100 mls/hr IV Q8H [facility] Stop: 01/13/19 16:00 Last Admin: 01/13/19 14:13 Dose: 100 mls/hr Potassium Chloride/Dextrose/Sod Cl (D5 Ns With 20 Meq Kcl) 1,000 mls @ 100 mls/ hr IV ASDIRECTED [facility] Last Admin: 01/13/19 00:53 Dose: 100 mls/hr Magnesium Sulfate 2 gm/ Premix 50 mls @ 25 mls/hr IV ONETIME ONE Stop: 01/11/19 10:14 Last Admin: 01/11/19 08:48 Dose: 25 mls/hr Iopamidol (Isovue-300 (61%)) 100 ml IVPUSH ONETIME ONE Stop: 01/09/19 21:46 Last Admin: 01/09/19 22:19 Dose: 100 ml Ketorolac Tromethamine (Toradol) 30 mg IVPUSH Q6H PRN PRN Reason: Abdominal Pain Last Admin: 01/13/19 21:31 Dose: 30 mg Lorazepam (Ativan) 0 mg IVPUSH Q4H PRN; Protocol PRN Reason: Withdrawal Symptoms Last Admin: 01/11/19 03:09 Dose: 1 mg Lorazepam (Ativan) 2 mg IVPUSH Q4H PRN PRN Reason: Seizures Lorazepam (Ativan) 2 mg IVPUSH ONETIME ONE Stop: 01/10/19 17:02 Last Admin: 01/10/19 17:56 Dose: 2 mg Magnesium Sulfate (Pharmacy To Dose - Magnesium Replacement) 1 dose .XX ASDIRECTED [facility] Metoprolol Tartrate (Lopressor) 5 mg IVPUSH Q4H PRN PRN Reason: Tachycardia Miscellaneous Information (Remove Patch) 0 ea TRDERM ONETIME ONE Stop: 01/13/19 12:31 Last Admin: 01/13/19 12:30 Dose: 1 ea Ondansetron HCl (Zofran) 4 mg IVPUSH ONETIME ONE Stop: 01/09/19 20:08 Last Admin: 01/09/19 20:24 Dose: 4 mg Pantoprazole Sodium (Protonix Iv) 80 mg IVPUSH BOLUS ONE Stop: 01/09/19 20:17 Last Admin: 01/09/19 20:28 Dose: 80 mg Potassium Chloride (Pharmacy To Dose - Potassium Replacement) 1 dose .XX ASDIRECTED [facility] Potassium Chloride (Klor-Con M20) 40 meq PO Q4H [facility] Stop: 01/11/19 12:16 Last Admin: 01/11/19 11:53 Dose: Not Given Saccharomyces Boulardii (Florastor) 500 mg PO DAILY [facility] Last Admin: 01/14/19 08:20 Dose: 500 mg Scopolamine (Transderm-Scop) 1.5 mg TRDERM Q72H ONE Stop: 01/10/19 12:27 Last Admin: 01/10/19 12:46 Dose: 1.5 mg Sucralfate (Carafate) 1 gm PO QIDACANDBED [facility] Last Admin: 01/13/19 06:38 Dose: 1 gm Thiamine HCl (Vitamin B-1) 100 mg IVPUSH ONETIME ONE Stop: 01/10/19 10:01 Last Admin: 01/10/19 10:44 Dose: 100 mg - Exam Quality Assessment: DVT Prophylaxis General: Alert, Oriented, Cooperative, No Acute Distress HEENT: Pupils Equal, Pupils Reactive, EOMI Neck: Trachea Midline, No JVD Lungs: Normal Respiratory Effort Cardiovascular: Regular Rate, Regular Rhythm GI/Abdominal Exam: Normal Bowel Sounds, Soft, Non-Tender, No Organomegaly, No Distention (Male) Exam: Deferred Back Exam: Normal Inspection Extremities: Normal Inspection, Non-Tender, Normal Capillary Refill Skin: Warm Neurological: No New Focal Deficit, Normal Gait, Normal Speech Psy/Mental Status: Alert, Normal Affect, Normal Mood - Problem List Review Problem List Initiated/Reviewed/Updated: Yes - My Orders Last 24 Hours: My Active Orders 01/14/19 10:54 Ketorolac [Toradol] 15 mg IVPUSH Q8H PRN 01/14/19 10:56 Acetaminophen [Tylenol] 650 mg PO Q6H PRN 01/14/19 10:57 LORazepam [Ativan] 2 mg IVPUSH Q6H PRN 01/14/19 19:19 diphenhydrAMINE [Benadryl] 25 mg IVPUSH Q6H PRN 01/14/19 21:00 Famotidine [Pepcid] 40 mg PO BEDTIME chlordiazePOXIDE [Librium] 25 mg PO BID 01/14/19 Lunch Soft Diet [DIET] 01/15/19 09:00 Saccharomyces Boulardii [Florastor] 250 mg PO DAILY 01/16/19 05:00 BASIC METABOLIC PANEL,BMP [CHEM] DAILY CBC WITH AUTO DIFF [HEME] DAILY LIPASE [CHEM] DAILY MAGNESIUM [CHEM] DAILY 01/17/19 05:00 BASIC METABOLIC PANEL,BMP [CHEM] DAILY CBC WITH AUTO DIFF [HEME] DAILY LIPASE [CHEM] DAILY MAGNESIUM [CHEM] DAILY 01/18/19 05:00 BASIC METABOLIC PANEL,BMP [CHEM] DAILY CBC WITH AUTO DIFF [HEME] DAILY LIPASE [CHEM] DAILY MAGNESIUM [CHEM] DAILY - Plan Plan:: Assessment/Plan: Acute: Enteritis, Improving - Unclear in etiology; Could be Viral - Having watery diarrhea - No recent travel and denies any unusual diet or drinks - Denies any hx/o auto-immune disease - Afebrile and no leukocytosis - CT scan report reads several loops of mildly prominent small bowel wall thickening within he left upper abdomen - He is getting 0.5 mg IV Dilaudid but does not seem to cut his pain; will increase dose of pain medication --> Toradol only now - CRP 9.8--> 7.2--> 4 - C. Diff, Stool Studies and H. Pylori--> negative - DDx: Idiopathic, Cannabinoid Hyperemesis Syndrome, Auto-immune, and Infectious Enteritis (pending stool studies) Abdominal Pain, Improving - Gastris vs Esophagitis/ PUD - Risk factors: Chronic ETOH Use +/- NSAIDs Use - Currently on PPI drip; will add Sucralfate QID - Still nauseous and actively vomiting but w/o hematemesis or rectal bleed-- > now only nausea - PRN anti-emetic meds - consult with Dr. Rhodes: - Lipase WNL, Amylase pending - Abdominal U/S: - 1. Small area of focal fatty sparing within the left lobe of the liver. - 2. Hypoechoic head of the pancreas either artifact or due to slight edema if patient has laboratory findings of pancreatitis. - 3. No additional abnormality is seen on abdominal ultrasound exam. - Endoscopy if deemed necessary ETOH Abuse/Use plus Substance Abuse - ANTONETTE level 0.03 - UDS positive for Meth and THC - [facility] Protocol plus associated treatment regimen - Thiamine, Folic Acid and MVI - Mild-Moderately Anxious - Tele-psych and SAC--> He has been committed for SA treatment [facility] Resolved: Hypokalemia - K 3.4-->4.1 - 2/2 GI Loss - Replete and Monitor Chronic: Hx/o Hematuria Substance Abuse Active Smoker, Offered Nicotine Patch Daily Plan: Admit to ICU-->MS w/ Tele Routine AM Labs [facility] Protocol--stopped IVF for maintenance--stopped PPI orally Consider IV antibiotics if CRP is elevated and if continues to be symptomatic; ATB stopped 01/13/19. NPO--> clear liquid --> full liquid (advance as tolerated)--->soft Aspiration and Seizure Precautions DVT PPx: SCDs Additional orders as above SW/CM for D/c planning--likely [facility] Code Status: 1
[2019-01-15] MEDS: Acetaminophen/Butalbital/Caffeine 325-50-40 MG Tab PO PRN (17:21)
[2019-01-15] MEDS: diphenhydrAMINE 50 MG/ML SDV IVPUSH PRN (20:34)
[2019-01-15] MEDS: QUEtiapine 25 MG Tab PO SCH (22:00)
[2019-01-15] MEDS: Famotidine 20 MG Tab PO SCH (22:00)
[2019-01-16] MEDS: Nicotine 21 MG/24 Hr Patch TRDERM SCH (09:20)
[2019-01-16] MEDS: Topiramate 25 MG Tab PO SCH (09:20)
[2019-01-16] MEDS: Saccharomyces Boulardii (Probiotic) 250 MG Cap PO SCH (09:20)
[2019-01-16] MEDS: Multivitamins,Therapeutic Tab PO SCH (09:20)
[2019-01-16] MEDS: Thiamine 100 MG Tab PO SCH (09:21)
[2019-01-16] MEDS: diphenhydrAMINE 50 MG/ML SDV IVPUSH PRN (09:46)
[2019-01-16] MEDS: Acetaminophen/Butalbital/Caffeine 325-50-40 MG Tab PO PRN (11:57)
[2019-01-16] MEDS ORDERED: diphenhydrAMINE 25 MG Cap PO PRN (13:25)
--- NOTE | 2019-01-16 13:25 | PCM.DCSUM1 ---
Discharge Summary - Hospital Course Free Text/Narrative:: 43 year old male (who complained of abdominal pain) was treated for enteritis with Levoquin/Flagyl, and NPO until abdominal pain improved. He was transferred to [facility] for ETOH dependence/abuse and had been seen by the counselor as well as psychiatry. The patient was treated in the ICU, closely monitored for ETOH withdrawal seizures. He was also evaluated by the general surgeon call worker person. The patient's preference for treatment was [facility]. However that choice was not available at the time of DC. HPI Initial Comments: This is a 43 yo white male with past medical hx/o Chronic ETOH Use and Nicotine Dependence who comes in for worsening upper abdominal pain associated with nausea, vomiting, water diarrhea, fever, chills and reduced appetite. He reports a similar episode in the past, diagnosed with gastritis, but his symptoms are not as bad as today. 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 He says that he vomits some blood sometimes. He denies any recent travel outside the country. No ingestion of unusual diet or drink. No hx/o auto-immune disease. His initial work up in ED shows a CBC remarkable for Hgb of 17.7, Hct of 51.3, MCV of 95, MCH of 32.8, RDW of 44.6, Platelet count of 153, Lymphocytes of 15.5% , Monocytes of 16.3%, and Eosinophils of 0.3%. His chemistry is significant for Na of 135, K of 3.4, Cl of 96, AG of 16.4, AST of 42, Albumin of 3.2. His Lipase is normal. His UA is not suggestive of UTI. His UDS is pos for Opiates, Meth and THC. His ANTONETTE level is 0.03. His Abdominal/Pelvis CT scan report reads several loops of mildly prominent small bowel wall thickening within the left upper abdomen. Patient is being admitted for medical management of enteritis and for alcohol detoxification. Diagnosis: Stroke: No - Discharge Data Discharge Date: 01/16/19 Discharge Disposition: DC/Tfer to In Rehab Fac 62 Condition: Good - Discharge Diagnosis/Problem(s) (1) Skin rash SNOMED Code(s): 660683909 ICD Code: R21 - RASH AND OTHER NONSPECIFIC SKIN ERUPTION Status: Acute - Patient Summary/Data Consults: Consultations 01/10/19 09:40 Consult to Case Management/Denture Packer [CONS] Routine Consult to Physician [CONS] Routine 01/10/19 09:47 Consult for Substance Abuse [CONS] Routine 01/11/19 10:00 Consult to Physician [CONS] Routine - Patient Instructions Diet: Regular Diet as Tolerated Activity: As Tolerated Driving: Do Not Drive Showering/Bathing: May Shower Notify Provider of: Fever, Increased Pain, Nausea and/or Vomiting - Discharge Plan *PRESCRIPTION DRUG MONITORING PROGRAM REVIEWED*: Not Applicable *COPY OF PRESCRIPTION DRUG MONITORING REPORT IN PATIENT MARTHA: Not Applicable Prescriptions/Med Rec: Acetaminophen/Butalbital/Caff [Fioricet 325-50-40 MG] 1 tab PO Q8H PRN #10 tablet PRN Reason: Headache diphenhydrAMINE [Benadryl] 25 mg PO Q6H PRN #30 cap PRN Reason: Itching Famotidine [Pepcid] 40 mg PO BEDTIME #30 tablet Folic Acid 1 mg PO DAILY #30 tablet Multivitamins,Therapeutic [Thera] 1 each PO DAILY #30 tablet Nicotine [Habitrol] 21 mg TRDERM DAILY #14 patch QUEtiapine [SEROquel] 50 mg PO BEDTIME #14 tablet Saccharomyces Boulardii [Florastor] 250 mg PO DAILY #14 cap Thiamine [Vitamin B-1] 100 mg PO DAILY #30 tablet Topiramate [Topamax] 25 mg PO BID #28 tablet Home Medications: Home Meds Acetaminophen/Butalbital/Caff [Fioricet 325-50-40 MG] 1 tab PO Q8H PRN #10 tablet 01/16/19 [Rx] Famotidine [Pepcid] 40 mg PO BEDTIME #30 tablet 01/16/19 [Rx] Folic Acid 1 mg PO DAILY #30 tablet 01/16/19 [Rx] Multivitamins,Therapeutic [Thera] 1 each PO DAILY #30 tablet 01/16/19 [Rx] Nicotine [Habitrol] 21 mg TRDERM DAILY #14 patch 01/16/19 [Rx] QUEtiapine [SEROquel] 50 mg PO BEDTIME #14 tablet 01/16/19 [Rx] Saccharomyces Boulardii [Florastor] 250 mg PO DAILY #14 cap 01/16/19 [Rx] Thiamine [Vitamin B-1] 100 mg PO DAILY #30 tablet 01/16/19 [Rx] Topiramate [Topamax] 25 mg PO BID #28 tablet 01/16/19 [Rx] diphenhydrAMINE [Benadryl] 25 mg PO Q6H PRN #30 cap 01/16/19 [Rx] Oxygen Therapy Mode: Room Air Patient Handouts: Steps to Quit Smoking Forms: ED Department Discharge - Discharge Summary/Plan Comment DC Time >30 min.: No Discharge Summary/Plan Comment: Assessment/Plan: Acute: Enteritis, Improving - Unclear in etiology; Could be Viral - Having watery diarrhea - No recent travel and denies any unusual diet or drinks - Denies any hx/o auto-immune disease - Afebrile and no leukocytosis - CT scan report reads several loops of mildly prominent small bowel wall thickening within he left upper abdomen - He is getting 0.5 mg IV Dilaudid but does not seem to cut his pain; will increase dose of pain medication --> Toradol only now - CRP 9.8--> 7.2--> 4 - C. Diff, Stool Studies and H. Pylori--> negative - DDx: Idiopathic, Cannabinoid Hyperemesis Syndrome, Auto-immune, and Infectious Enteritis (pending stool studies) Abdominal Pain, Improving - Gastris vs Esophagitis/ PUD - Risk factors: Chronic ETOH Use +/- NSAIDs Use - Currently on PPI drip; will add Sucralfate QID - Still nauseous and actively vomiting but w/o hematemesis or rectal bleed-- > now only nausea - PRN anti-emetic meds - GS consult with Dr. Rhodes: - Lipase WNL, Amylase pending - Abdominal U/S: - 1. Small area of focal fatty sparing within the left lobe of the liver. - 2. Hypoechoic head of the pancreas either artifact or due to slight edema if patient has laboratory findings of pancreatitis. - 3. No additional abnormality is seen on abdominal ultrasound exam. - Endoscopy if deemed necessary ETOH Abuse/Use plus Substance Abuse - ANTONETTE level 0.03 - UDS positive for Meth and THC - CIWAA Protocol plus associated treatment regimen - Thiamine, Folic Acid and MVI - Mild-Moderately Anxious - Tele-psych and SAC--> He has been committed for SA treatment [facility] Skin rash--query precipitated by tape adhesive, pruritis relieved with Benadryl Resolved: Hypokalemia - K 3.4-->4.1 - 2/2 GI Loss - Replete and Monitor Chronic: Hx/o Hematuria Substance Abuse Active Smoker, Offered Nicotine Patch Daily Plan: Admit to ICU-->MS w/ Tele Routine AM Labs CIWAA Protocol--stopped IVF for maintenance--stopped PPI orally Consider IV antibiotics if CRP is elevated and if continues to be symptomatic; ATB stopped 01/13/19. NPO--> clear liquid --> full liquid (advance as tolerated)--->soft Aspiration and Seizure Precautions DVT PPx: SCDs Additional orders as above SW/CM for D/c planning--likely [facility] Code Status: 1 - General Info Date of Service: 01/10/19 Functional Status: Reports: Pain Controlled, Tolerating Diet, Ambulating, Urinating - Review of Systems General: Reports: No Symptoms HEENT: Reports: No Symptoms Pulmonary: Reports: No Symptoms Cardiovascular: Reports: No Symptoms Gastrointestinal: Reports: No Symptoms Genitourinary: Reports: No Symptoms Musculoskeletal: Reports: No Symptoms Skin: Reports: Pruritis Neurological: Reports: No Symptoms Psychiatric: Reports: No Symptoms - Patient Data Vitals - Most Recent: Last Vital Signs Temp 36.1 C 01/16/19 09:05 Pulse 106 H 01/16/19 09:05 Resp 14 01/16/19 09:05 BP 121/85 01/16/19 09:05 Pulse Ox 99 01/16/19 09:05 Weight - Most Recent: 75.115 kg I&O - Last 24 hours: Intake & Output 01/15/19 01/16/19 01/16/19 22:59 06:59 14:59 Intake Total 900 800 0 Balance 900 800 0 Lab Results - Last 24 hrs: Laboratory Results - last 24 hr 01/16/19 01/16/19 Range/Units 06:25 06:25 WBC 6.22 (4.23-9.07) K/mm3 RBC 5.21 (4.63-6.08) M/mm3 Hgb 17.0 (13.7-17.5) gm/L Hct 49.0 (40.1-51.0) % MCV 94.0 H (79.0-92.2) fl MCH 32.6 H (25.7-32.2) pg MCHC 34.7 (32.2-35.5) g/dl RDW Std Deviation 43.0 (35.1-43.9) fL Plt Count 338 H (163-337) K/mm3 MPV 8.9 L (9.4-12.3) fl Neut % (Auto) 46.2 (34.0-67.9) % Lymph % (Auto) 28.3 (21.8-53.1) % [place] % (Auto) 19.1 H (5.3-12.2) % Eos % (Auto) 2.1 (0.8-7.0) Baso % (Auto) 0.8 (0.1-1.2) % Neut # (Auto) 2.87 (1.78-5.38) K/mm3 Lymph # (Auto) 1.76 (1.32-3.57) K/mm3 [place] # (Auto) 1.19 H (0.30-0.82) K/mm3 Eos # (Auto) 0.13 (0.04-0.54) K/mm3 Baso # (Auto) 0.05 (0.01-0.08) K/mm3 Manual Slide Review Abnormal smear Sodium 138 (136-145) mEq/L Potassium 4.0 (3.5-5.1) mEq/L Chloride 103 (98-107) mEq/L Carbon Dioxide 25 (21-32) mEq/L Anion Gap 14.0 (5-15) BUN 14 (7-18) mg/dL Creatinine 1.3 (0.7-1.3) mg/dL Est Cr Clr Drug Dosing 76.24 mL/min Estimated GFR (MDRD) 60 (>60) mL/min BUN/Creatinine Ratio 10.8 L (14-18) Glucose 109 H (74-106) mg/dL Calcium 9.1 (8.5-10.1) mg/dL Magnesium 1.8 (1.8-2.4) mg/dl Lipase 139 (73-393) U/L Med Orders - Current: Current Medications Acetaminophen (Tylenol) 650 mg PO Q6H PRN PRN Reason: Pain (Mild 1-3)/fever Acetaminophen/Butalbital/Caffeine (Fioricet 325-50-40 Mg) 1 tab PO Q8H PRN PRN Reason: Headache Last Admin: 01/16/19 11:57 Dose: 1 tab Albuterol/Ipratropium (Duoneb 3.0-0.5 Mg/3 Ml) 3 ml NEB Q4H PRN PRN Reason: Shortness Of Breath/wheezing Last Admin: 01/11/19 09:52 Dose: 3 ml Benzocaine/Menthol (Cepacol Sore Throat) 1 lozenge MUCMEM Q2HR PRN PRN Reason: Sore Throat Last Admin: 01/14/19 15:31 Dose: 1 lozenge Diphenhydramine HCl (Benadryl) 25 mg IVPUSH Q6H PRN PRN Reason: Itching Last Admin: 01/16/19 09:46 Dose: 25 mg Famotidine (Pepcid) 40 mg PO BEDTIME [facility] Last Admin: 01/15/19 22:00 Dose: 40 mg Haloperidol Lactate (Haldol) 2 mg IM Q4H PRN PRN Reason: Agitation Hydralazine HCl (Apresoline) 20 mg IVPUSH Q4H PRN PRN Reason: Hypertension Lorazepam (Ativan) 0 mg IVPUSH Q4H PRN; Protocol PRN Reason: Withdrawal Symptoms Last Admin: 01/11/19 15:13 Dose: 1 mg Lorazepam (Ativan) 2 mg IVPUSH Q6H PRN PRN Reason: Seizures Miscellaneous Information (Remove Patch) 1 ea TRDERM DAILY [facility] Last Admin: 01/16/19 09:22 Dose: 1 ea Multivitamins (Thera) 1 each PO DAILY [facility] Last Admin: 01/16/19 09:20 Dose: 1 each Nicotine (Habitrol) 21 mg TRDERM DAILY [facility] Last Admin: 01/16/19 09:20 Dose: 21 mg Ondansetron HCl (Zofran) 4 mg IVPUSH Q6H PRN PRN Reason: Nausea Last Admin: 01/11/19 20:02 Dose: 4 mg Quetiapine Fumarate (Seroquel) 50 mg PO BEDTIME [facility] Last Admin: 01/15/19 22:00 Dose: 50 mg Saccharomyces Boulardii (Florastor) 250 mg PO DAILY [facility] Last Admin: 01/16/19 09:20 Dose: 250 mg Sodium Chloride (Saline Flush) 10 ml FLUSH ASDIRECTED PRN PRN Reason: Keep Vein Open Last Admin: 01/09/19 20:25 Dose: 10 ml Thiamine HCl (Vitamin B-1) 100 mg PO DAILY [facility] Last Admin: 01/16/19 09:21 Dose: 100 mg Topiramate (Topamax) 25 mg PO BID [facility] Last Admin: 01/16/19 09:20 Dose: 25 mg Discontinued Medications Acetaminophen (Tylenol) 650 mg PO Q4H PRN PRN Reason: Pain (Mild 1-3)/fever Acetaminophen/Butalbital/Caffeine (Fioricet 325-50-40 Mg) 1 tab PO Q6H PRN PRN Reason: Headache Last Admin: 01/12/19 21:05 Dose: 1 tab Hydrocodone Bitart/Acetaminophen ([place] 325-5 Mg) 1 tab PO Q4H PRN PRN Reason: Pain (moderate 4-6) Last Admin: 01/12/19 08:16 Dose: 1 tab Chlordiazepoxide HCl (Librium) 25 mg PO TID [facility] Last Admin: 01/14/19 08:20 Dose: 25 mg Chlordiazepoxide HCl (Librium) 25 mg PO BID [facility] Last Admin: 01/15/19 09:06 Dose: 25 mg Clonidine HCl (Catapres) 0.1 mg PO Q4H PRN PRN Reason: Agitation Last Admin: 01/11/19 20:24 Dose: 0.1 mg Diatrizoate Meglum/Diatrizoate Sod (Gastrografin 37%) 90 ml PO ONETIME ONE Stop: 01/09/19 21:46 Last Admin: 01/09/19 22:19 Dose: 90 ml Diphenhydramine HCl (Benadryl) 50 mg IVPUSH ONETIME ONE Stop: 01/14/19 20:01 Last Admin: 01/14/19 21:39 Dose: 50 mg Famotidine (Pepcid) 20 mg PO BEDTIME [facility] Last Admin: 01/13/19 21:29 Dose: 20 mg Folic Acid (Folic Acid) 1 mg PO DAILY [facility] Stop: 01/13/19 09:01 Last Admin: 01/13/19 08:28 Dose: 1 mg Hydromorphone HCl (Dilaudid) 0.5 mg IVPUSH ONETIME ONE Stop: 01/09/19 20:09 Last Admin: 01/09/19 20:27 Dose: 0.5 mg Hydromorphone HCl (Dilaudid) 0.5 mg IVPUSH ONETIME ONE Stop: 01/09/19 22:10 Last Admin: 01/09/19 22:19 Dose: 0.5 mg Hydromorphone HCl (Dilaudid) 0.5 mg IVPUSH Q2H PRN PRN Reason: Pain Last Admin: 01/10/19 08:56 Dose: 0.5 mg Hydromorphone HCl (Dilaudid) 1 mg IVPUSH Q4H PRN PRN Reason: Pain Last Admin: 01/12/19 04:38 Dose: 1 mg Sodium Chloride (Normal Saline) 1,000 mls @ 1,000 mls/hr IV .BOLUS STA Stop: 01/09/19 21:06 Last Admin: 01/09/19 20:27 Dose: 1,000 mls/hr Pantoprazole Sodium 80 mg/ (Sodium Chloride) 100 mls @ 10 mls/hr IV Q10H [facility] Last Admin: 01/09/19 20:28 Dose: 10 mls/hr Sodium Chloride (Normal Saline) 1,000 mls @ 100 mls/hr IV ASDIRECTED [facility] Last Admin: 01/10/19 22:13 Dose: 100 mls/hr Thiamine HCl 100 mg/ Sodium (Chloride) 51 mls @ 100 mls/hr IV ONETIME ONE Stop: 01/10/19 10:10 Last Admin: 01/10/19 15:54 Dose: Not Given Levofloxacin/Dextrose 500 mg/ (Premix) 100 mls @ 100 mls/hr IV Q24H [facility] Stop: 01/13/19 23:00 Last Admin: 01/13/19 20:23 Dose: 100 mls/hr Metronidazole 500 mg/ Premix 100 mls @ 100 mls/hr IV Q8H [facility] Stop: 01/13/19 16:00 Last Admin: 01/13/19 14:13 Dose: 100 mls/hr Potassium Chloride/Dextrose/Sod Cl (D5 Ns With 20 Meq Kcl) 1,000 mls @ 100 mls/ hr IV ASDIRECTED [facility] Last Admin: 01/13/19 00:53 Dose: 100 mls/hr Magnesium Sulfate 2 gm/ Premix 50 mls @ 25 mls/hr IV ONETIME ONE Stop: 01/11/19 10:14 Last Admin: 01/11/19 08:48 Dose: 25 mls/hr Iopamidol (Isovue-300 (61%)) 100 ml IVPUSH ONETIME ONE Stop: 01/09/19 21:46 Last Admin: 01/09/19 22:19 Dose: 100 ml Ketorolac Tromethamine (Toradol) 30 mg IVPUSH Q6H PRN PRN Reason: Abdominal Pain Last Admin: 01/13/19 21:31 Dose: 30 mg Ketorolac Tromethamine (Toradol) 15 mg IVPUSH Q8H PRN PRN Reason: Abdominal Pain Lorazepam (Ativan) 0 mg IVPUSH Q4H PRN; Protocol PRN Reason: Withdrawal Symptoms Last Admin: 01/11/19 03:09 Dose: 1 mg Lorazepam (Ativan) 2 mg IVPUSH Q4H PRN PRN Reason: Seizures Lorazepam (Ativan) 2 mg IVPUSH ONETIME ONE Stop: 01/10/19 17:02 Last Admin: 01/10/19 17:56 Dose: 2 mg Magnesium Sulfate (Pharmacy To Dose - Magnesium Replacement) 1 dose .XX ASDIRECTED [facility] Metoprolol Tartrate (Lopressor) 5 mg IVPUSH Q4H PRN PRN Reason: Tachycardia Miscellaneous Information (Remove Patch) 0 ea TRDERM ONETIME ONE Stop: 01/13/19 12:31 Last Admin: 01/13/19 12:30 Dose: 1 ea Ondansetron HCl (Zofran) 4 mg IVPUSH ONETIME ONE Stop: 01/09/19 20:08 Last Admin: 01/09/19 20:24 Dose: 4 mg Pantoprazole Sodium (Protonix Iv) 80 mg IVPUSH BOLUS ONE Stop: 01/09/19 20:17 Last Admin: 01/09/19 20:28 Dose: 80 mg Potassium Chloride (Pharmacy To Dose - Potassium Replacement) 1 dose .XX ASDIRECTED [facility] Potassium Chloride (Klor-Con M20) 40 meq PO Q4H [facility] Stop: 01/11/19 12:16 Last Admin: 01/11/19 11:53 Dose: Not Given Saccharomyces Boulardii (Florastor) 500 mg PO DAILY [facility] Last Admin: 01/14/19 08:20 Dose: 500 mg Scopolamine (Transderm-Scop) 1.5 mg TRDERM Q72H ONE Stop: 01/10/19 12:27 Last Admin: 01/10/19 12:46 Dose: 1.5 mg Sucralfate (Carafate) 1 gm PO QIDACANDBED SOLEDAD Last Admin: 01/13/19 06:38 Dose: 1 gm Thiamine HCl (Vitamin B-1) 100 mg IVPUSH ONETIME ONE Stop: 01/10/19 10:01 Last Admin: 01/10/19 10:44 Dose: 100 mg - Exam Quality Assessment: Reports: DVT Prophylaxis General: Reports: Alert, Oriented, Cooperative, No Acute Distress HEENT: Reports: Pupils Equal, Pupils Reactive, EOMI Neck: Reports: Trachea Midline, No JVD Lungs: Reports: Clear to Auscultation, Normal Respiratory Effort Cardiovascular: Reports: Regular Rate, Regular Rhythm GI/Abdominal Exam: Normal Bowel Sounds, Soft, Non-Tender, No Organomegaly, No Distention (Male) Exam: Deferred Rectal (Males) Exam: Deferred Back Exam: Reports: Normal Inspection Extremities: Normal Inspection, Non-Tender, Normal Capillary Refill Skin: Reports: Rash Neurological: Reports: No New Focal Deficit, Cranial Nerves Intact Psy/Mental Status: Reports: Alert
[2019-01-16 14:30] VITALS: BP 130/89
[2019-01-17] MEDS ORDERED: Folic Acid 1 MG Tab PO SCH (09:00)
== END 2019-01-16 14:55 | DRG 897 ==
LOC: JD.ED 19:29 → JD.ICU 01-10 00:52 → JD.MS 01-14 06:27
PROVIDERS: ADMIT Internal Medicine; ATTEND Internal Medicine
DX: F10.239 Alcohol dependence with withdrawal, unspecified (principal); K52.9 Noninfective gastroenteritis and colitis, unspecified; Z88.0 Allergy status to penicillin; F17.210 Nicotine dependence, cigarettes, uncomplicated; F15.10 Other stimulant abuse, uncomplicated; F12.10 Cannabis abuse, uncomplicated
CPT/HCPCS: 36415; 71046; 71046-26; 74177; 74177-26; 76700; 76700-26; 80048; 80053; 80306; 81001; 82150; 83605; 83690; 83735; 84484; 85025; 86140; 86677; 86738; 87046; 87427; 87493; 87804; 93005; 94640; 94760; 96365; 96366; 96375; 96376; 99284; 99285-25; A9270-GY; C9113; G0480; J1170; J1200; J1885; J1956; J2060; J2405; J3411; J3475; J3480; J3490; J7030; J7040; J7620-GY; Q9963; Q9967

== ENCOUNTER 2019-01-30 21:21 | Emergency (ER) | payer MEDICAID ==
[2019-01-30 21:42] VITALS: BP 143/100
[2019-01-30] MEDS ORDERED: Dexamethasone 4 MG/ML SDV IM ONE (22:10)
[2019-01-30] MEDS ORDERED: diphenhydrAMINE 25 MG Cap PO ONE (22:11)
--- NOTE | 2019-01-30 22:16 | EDM.PDOC ---
ED HPI GENERAL MEDICAL PROBLEM - General Chief Complaint: Skin Complaint Stated Complaint: HIVES SKIN ISSUES Time Seen by Provider: 01/30/19 21:45 Source of Information: Reports: Patient History Limitations: Reports: No Limitations - History of Present Illness INITIAL COMMENTS - FREE TEXT/NARRATIVE: 43 -year-old male presents to emergency with chief complaints of a rash on his upper chest and back. Patient states that the rash started this morning that he "broke out in this allergic to something." He reports taking Benadryl but states that the itching is getting worse. He denies any shortness of breath chest pain or difficulty breathing. Patient is well-known to the emergency room department and has been here numerous times for psychiatric issues. He does not have a primary care doctor. Onset: Today Onset Date: 01/30/19 Onset Time: 09:00 Duration: Getting Worse Location: Reports: Chest, Back Quality: Reports: Other (Itching) Severity: Mild Improves with: Reports: None Worsens with: Reports: None Associated Symptoms: Denies: Chest Pain, Cough, Fever/Chills, Nausea/Vomiting, Shortness of Breath - Related Data Allergies Allergy/AdvReac Type Severity Reaction Status Date / Time Penicillins Allergy Other Verified 01/30/19 21:42 Home Meds: Home Meds Acetaminophen/Butalbital/Caff [Fioricet 325-50-40 MG] 1 tab PO Q8H PRN #10 tablet 01/16/19 [Rx] Multivitamins,Therapeutic [Thera] 1 each PO DAILY #30 tablet 01/16/19 [Rx] Nicotine [Habitrol] 21 mg TRDERM DAILY #14 patch 01/16/19 [Rx] Famotidine [Pepcid] 10 mg PO DAILY 01/30/19 [History] Saccharomyces Boulardii [Florastor] 250 mg PO BEDTIME 01/30/19 [History] diphenhydrAMINE [Benadryl] 25 mg PO BID PRN 01/30/19 [History] traZODone HCl [Trazodone HCl] 75 mg PO BEDTIME 01/30/19 [History] Past Medical History - Past Health History Medical/Surgical History: Denies Medical/Surgical History Respiratory History: Reports: Other (See Below) Other Respiratory History: "lung surgery because it kept collapsing." Other Gastrointestinal History: blood in urine and stool Other Genitourinary History: hematuria Musculoskeletal History: Reports: Fracture Other Musculoskeletal History: "fractured spine" Psychiatric History: Reports: Addiction Social & Family History - Family History Family Medical History: Noncontributory - Tobacco Use Smoking Status *Q: Current Every Day Smoker Years of Tobacco use: 27 Packs/Tins Daily: 0.5 - Caffeine Use Caffeine Use: Reports: Coffee - Recreational Drug Use Recreational Drug Use: Yes Drug Use in Last 12 Months: Yes Recreational Drug Type: Reports: Marijuana/Hashish Recreational Drug Use Frequency: Not Used In Over 1 Month - Living Situation & Occupation Living situation: Reports: Occupation: Employed ED ROS GENERAL - Review of Systems Review Of Systems: See Below Constitutional: Reports: Fever, Chills HEENT: Reports: No Symptoms Respiratory: Reports: No Symptoms. Denies: Shortness of Breath, Wheezing Cardiovascular: Denies: Chest Pain Endocrine: Reports: No Symptoms GI/Abdominal: Reports: No Symptoms : Reports: No Symptoms Musculoskeletal: Reports: No Symptoms Skin: Reports: Rash Neurological: Reports: No Symptoms Psychiatric: Reports: Other (history of psychiatric issues) Hematologic/Lymphatic: Reports: No Symptoms Immunologic: Reports: No Symptoms ED EXAM, SKIN/RASH Exam: See Below Exam Limited By: No Limitations General Appearance: Alert, WD/WN, No Apparent Distress Ears: Normal External Exam, Normal Canal, Hearing Grossly Normal, Normal TMs Nose: Normal Inspection, Normal Mucosa, No Blood Throat/Mouth: Normal Inspection, Normal Lips, Normal Teeth, Normal Gums, Normal Oropharynx, Normal Voice, No Airway Compromise Head: Atraumatic, Normocephalic Neck: Normal Inspection, Supple, Non-Tender, Full Range of Motion Respiratory/Chest: No Respiratory Distress, Lungs Clear, Normal Breath Sounds, No Accessory Muscle Use, Chest Non-Tender Cardiovascular: Normal Peripheral Pulses, Regular Rate, Rhythm, No Edema, No Gallop, No JVD, No Murmur, No Rub Back Exam: Normal Inspection, Full Range of Motion Extremities: Normal Inspection, Normal Range of Motion, Non-Tender, No Pedal Edema, Normal Capillary Refill Neurological: Alert, Oriented, CN II-XII Intact, Normal Cognition, Normal Gait, Normal Reflexes, No Motor/Sensory Deficits Psychiatric: Normal Affect, Normal Mood Skin: Warm, Dry, Intact, Normal Color, Other (Macular papular generalized rash noted on chest and back.) Characteristics: Maculopapular Associated features: No: Warmth, Tenderness, Swelling, Inflammation, Crusting, Weeping Lymphatic: No Adenopathy Course - Vital Signs Last Recorded V/S: Last Vital Signs Temp 98.0 F 01/30/19 21:38 Pulse 91 01/30/19 21:38 Resp 16 01/30/19 21:38 BP 143/100 H 01/30/19 21:38 Pulse Ox 98 01/30/19 21:38 - Orders/Labs/Meds Meds: Medications Discontinued Medications Generic Name Dose Route Start Last Admin Trade Name Kathryn PRN Reason Stop Dose Admin Dexamethasone 4 mg 01/30/19 22:10 Dexamethasone IM 01/30/19 22:11 ONETIME ONE Diphenhydramine HCl 25 mg 01/30/19 22:11 Benadryl PO 01/30/19 22:12 ONETIME ONE - Re-Assessments/Exams Free Text/Narrative Re-Assessment/Exam: 01/30/19 22:19 Patient received Decadron and Benadryl and his condition improved. Instructed patient to continue taking the Benadryl as needed. Instructed patient to follow up with his PCP. Instructed patient to return to the emergency room for any new or acutely worsening symptoms. Departure - Departure Time of Disposition: 22:20 Disposition: Home, Self-Care 01 Condition: Good Clinical Impression: Pruritus - Discharge Information *PRESCRIPTION DRUG MONITORING PROGRAM REVIEWED*: Not Applicable *COPY OF PRESCRIPTION DRUG MONITORING REPORT IN PATIENT MARTHA: Not Applicable Instructions: Rash, Pruritus Referrals: PCP,None [Primary Care Provider] - Forms: ED Department Discharge Additional Instructions: You have been diagnosed with pruritus. He should continue to take Benadryl 25- 50 mg every 6 hours as needed for itching. Recommend he use mild soaps and follow-up through PCP as needed. Return to the emergency room for any new or acutely worsening symptoms.
== END 2019-01-30 22:32 | disposition home or self-care (01) ==
LOC: JD.ED 21:21
DX: L29.9 Pruritus, unspecified (principal); F17.210 Nicotine dependence, cigarettes, uncomplicated; Z79.899 Other long term (current) drug therapy; Z88.0 Allergy status to penicillin
CPT/HCPCS: 96372; 99282; A9270; J1100; 99283

== ENCOUNTER 2019-10-16 10:14 | Emergency (ER) | payer SELFPAY ==
[2019-10-16 10:56] VITALS: BP 149/106; PULSE 102
[2019-10-16] MEDS ORDERED: Ondansetron 4 MG/2 ML SDV IVPUSH ONE (11:24)
[2019-10-16] MEDS ORDERED: Sodium Chloride 0.9% 10 ML Syringe FLUSH PRN (11:24)
[2019-10-16] MEDS ORDERED: Lactated Ringers 1,000 ML IV SCH (11:30)
[2019-10-16] MEDS ORDERED: LORazepam 2 MG/ML SDV IVPUSH ONE ×2 (12:50→14:48)
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
[2019-10-16] MEDS ORDERED: cloNIDine 0.1 MG Tab PO ONE (16:16)
[2019-10-16] MEDS ORDERED: LORazepam 1 MG Tab PO ONE (16:17)
[2019-10-16] MEDS ORDERED: Ondansetron 4 MG Tab.DIS PO ONE (16:17)
== END 2019-10-16 16:57 | disposition home or self-care (01) ==
LOC: JD.ED 10:14
DX: F10.29 Alcohol dependence with unspecified alcohol-induced disorder (principal); F10.230 Alcohol dependence with withdrawal, uncomplicated; F17.210 Nicotine dependence, cigarettes, uncomplicated; Z88.0 Allergy status to penicillin
CPT/HCPCS: 36415; 80053; 80306; 80320; 83735; 85025; 96361; 96374; 96375; 96376; 99283; A9270; J2060; J2405; J7120; G0480

== ENCOUNTER 2019-12-14 01:29 | Emergency (ER) | payer SELFPAY ==
[2019-12-14 01:44] VITALS: BP 130/100; PULSE 116
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
[2019-12-14] MEDS ORDERED: Diphtheria,Pertussis(Acell),Tetanus Vaccine 0.5 ML Syringe IM ONE (03:29)
--- NOTE | 2019-12-14 07:52 | CR ---
Right forearm: Two views of the right forearm were obtained. Comparison: No prior right forearm exam. No fracture or other abnormality is appreciated. Impression: 1. Nothing acute is seen on two-view right forearm study. Diagnostic code #1 This report was dictated in [place] Standard Time
--- NOTE | 2019-12-14 07:52 | CT ---
Head CT Technique: Multiple axial sections through the brain were obtained. Intravenous contrast was not utilized. Comparison: Prior head CT study of 12/23/15. Findings: Ventricles along with basal cisterns and sulci over the convexities appear within normal limits for the patient's age. No abnormal parenchymal densities are seen. No evidence of intracranial hemorrhage. No midline shift or mass-effect is seen. Bone window settings were reviewed. Visualized mastoid sinuses and visualized paranasal sinuses show nothing acute. No acute calvarial abnormality is appreciated. Impression: 1. Nothing acute is appreciated on noncontrast head CT exam. Diagnostic code #1 This report was dictated in [place] Standard Time I agree with preliminary report from [facility], finalized on 12/14/19, 4:07 AM Central Time
== END 2019-12-14 03:42 ==
LOC: JD.ED 01:29
DX: S09.90XA Unspecified injury of head, initial encounter (principal); S51.811A Laceration without foreign body of right forearm, initial encounter; F41.9 Anxiety disorder, unspecified; F17.210 Nicotine dependence, cigarettes, uncomplicated; Z79.899 Other long term (current) drug therapy; Z88.0 Allergy status to penicillin; Z23 Encounter for immunization; Y00.XXXA Assault by blunt object, initial encounter; W25.XXXA Contact with sharp glass, initial encounter
CPT/HCPCS: 70450; 70450-26; 73090-26-RT; 73090-RT; 90471; 90715; 99284-25

== ENCOUNTER 2020-07-31 21:49 | Emergency (ER) | payer MEDICAID ==
[2020-07-31] MEDS ORDERED: Sodium Chloride 0.9% 10 ML Syringe FLUSH PRN (22:11)
[2020-07-31] MEDS ORDERED: LORazepam 2 MG/ML SDV ONE (22:12)
[2020-07-31] MEDS ORDERED: LORazepam 2 MG/ML SDV IVPUSH ONE (22:13)
[2020-07-31] MEDS ORDERED: Ondansetron 4 MG/2 ML SDV IVPUSH ONE (22:15)
[2020-07-31] MEDS ORDERED: Lactated Ringers 1,000 ML IV SCH (22:15)
[2020-07-31] MEDS ORDERED: Ondansetron 4 MG/2 ML SDV ONE (22:16)
[2020-07-31] MEDS ORDERED: Pantoprazole 40 MG Vial IVPUSH ONE (22:28)
[2020-07-31] MEDS ORDERED: Thiamine 200 MG/2 ML MDV IVPUSH ONE (22:30)
[2020-07-31] MEDS ORDERED: Metoclopramide 10 MG/2 ML SDV IVPUSH ONE (23:22)
[2020-07-31] MEDS ORDERED: diphenhydrAMINE 50 MG/ML SDV IVPUSH ONE (23:22)
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
[2020-08-01] MEDS ORDERED: Lactated Ringers 1,000 ML IV SCH (00:30)
[2020-08-01] MEDS ORDERED: LORazepam 2 MG/ML SDV IVPUSH ONE (06:22)
[2020-08-01] MEDS ORDERED: Ondansetron 4 MG/2 ML SDV IVPUSH ONE (06:22)
--- NOTE | 2020-08-01 06:33 | CT ---
Head CT Technique: Multiple axial sections through the brain were obtained. Intravenous contrast was not utilized. Mild motion artifact noted within the base cuts. Comparison: Prior head CT study of 12/14/19. Findings: Ventricles along with basal cisterns and sulci over the convexities are within normal limits for the patient's age. No abnormal parenchymal densities are seen. No evidence of intracranial hemorrhage. No midline shift or mass-effect is seen. Bone window settings were reviewed. Minimal mucosal thickening is seen within the ethmoid sinuses. Visualized paranasal sinuses show nothing acute. Visualized paranasal sinuses show nothing acute. No acute calvarial finding is seen. Impression: 1. Motion artifact within the base cuts did diminishing some details. 2. Within above limitation, no acute intracranial abnormality is appreciated. Diagnostic code #2 This report was dictated in MDT I agree with preliminary report from casi, finalized on 08/01/20, 1:24 AM Central Daylight Time
[2020-08-01 06:52] VITALS: BP 127/80; PULSE 109
== END 2020-08-01 06:56 | disposition home or self-care (01) ==
LOC: JD.ED 21:49
DX: F10.29 Alcohol dependence with unspecified alcohol-induced disorder (principal); F10.220 Alcohol dependence with intoxication, uncomplicated; S00.12XA Contusion of left eyelid and periocular area, initial encounter; S00.11XA Contusion of right eyelid and periocular area, initial encounter; J45.909 Unspecified asthma, uncomplicated; F41.9 Anxiety disorder, unspecified; F17.210 Nicotine dependence, cigarettes, uncomplicated; Z88.0 Allergy status to penicillin; Z79.899 Other long term (current) drug therapy; Y90.2 Blood alcohol level of 40-59 mg/100 ml; X58.XXXA Exposure to other specified factors, initial encounter
CPT/HCPCS: 36415; 70450; 80053; 80306; 80307; 83735; 85025; 85610; 85730; 96361; 96374; 96375; 96376; 99284; C9113; J1200; J2060; J2405; J2765; J3411; J7120

== ENCOUNTER 2022-06-07 10:33 | Emergency (ER) | payer BC ==
[2022-06-07] MEDS ORDERED: Sodium Chloride 0.9% 10 ML Syringe FLUSH PRN (10:51)
[2022-06-07] MEDS ORDERED: Ondansetron 4 MG/2 ML SDV IVPUSH ONE (10:57)
[2022-06-07] MEDS ORDERED: HYDROmorphone 0.5 MG/0.5 ML Syringe IVPUSH ONE ×2 (10:57→11:52)
[2022-06-07] MEDS ORDERED: Sodium Chloride 0.9% 1,000 ML IV SCH (11:00)
[2022-06-07 13:02] VITALS: BP 102/73; PULSE 58
== END 2022-06-07 12:55 | disposition home or self-care (01) ==
LOC: JD.ED 10:33
DX: R10.30 Lower abdominal pain, unspecified (principal); R11.2 Nausea with vomiting, unspecified; Z88.0 Allergy status to penicillin; Z79.899 Other long term (current) drug therapy
CPT/HCPCS: 36415; 74019; 80053; 80307; 83690; 85025; 96361; 96374; 96375; 96376; 99284; J1170; J2405; J3490; J7030; 99283

== ENCOUNTER 2022-08-29 03:13 | Emergency (ER) | payer BC ==
[2022-08-29 03:35] VITALS: BP 126/99; PULSE 74
[2022-08-29] MEDS ORDERED: Ondansetron 4 MG/2 ML SDV IVPUSH ONE (04:13)
[2022-08-29] MEDS ORDERED: Sodium Chloride 0.9% 1,000 ML IV ONE (04:13)
[2022-08-29] MEDS ORDERED: HYDROmorphone 1 MG/ML Syringe IVPUSH ONE (04:16)
[2022-08-29 04:32] LABS: ESTIMATED GFR 83 mL/min (>60)
== END 2022-08-29 06:12 | disposition home or self-care (01) ==
LOC: JD.ED 03:13
DX: G89.29 Other chronic pain (principal); R10.10 Upper abdominal pain, unspecified; F17.210 Nicotine dependence, cigarettes, uncomplicated; Z79.899 Other long term (current) drug therapy; Z88.0 Allergy status to penicillin
CPT/HCPCS: 36415; 80053; 83690; 83735; 85007; 85027; 96361; 96374; 96375; 99284; J1170; J2405; J7030; 99283

== ENCOUNTER 2023-01-03 21:03 | Emergency (ER) | payer BC ==
[2023-01-03 21:15] VITALS: BP 109/82; PULSE 93
[2023-01-03] MEDS ORDERED: Lactated Ringers 1,000 ML IV SCH (23:30)
== END 2023-01-04 02:04 | disposition home or self-care (01) ==
LOC: JD.ED 21:03
DX: R15.0 Incomplete defecation (principal); F17.210 Nicotine dependence, cigarettes, uncomplicated; Z88.0 Allergy status to penicillin
CPT/HCPCS: 36415; 74019; 80053; 81001; 83690; 83735; 85025; 86140; 96360; 96361; 99284; J7120

== ENCOUNTER 2025-03-15 19:30 | Emergency (ER) | payer BC ==
[2025-03-15 19:47] VITALS: PULSE 123
[2025-03-15] MEDS ORDERED: Naloxone 0.4 MG/ML SDV IVPUSH PRN (19:52)
[2025-03-15 20:19] LABS: BASOPHILS ABSOLUTE AUTO 0.1 K/mm3 (0.0-0.2); BASOPHILS PERCENT AUTO 0.6 % (0.0-1.0); EOSINOPHILS PERCENT AUTO 0.1 % (0.0-6.0); HEMATOCRIT 57.3 % (42.0-52.0); HEMOGLOBIN 19.6 gm/dl (14.0-18.0); IMMATURE GRAN ABSOLUTE AUTO 0.33 K/mm3 (0.00-0.05); IMMATURE GRAN PERCENT AUTO 1.6 % (0.0-0.4); LYMPHOCYTES ABSOLUTE AUTO 1.5 K/mm3 (1.0-4.8); LYMPHOCYTES PERCENT AUTO 7.4 % (24.0-44.0); MEAN CORPUSCULAR HEMOGLOBIN 32.9 pg (28.0-32.0); MEAN CORPUSCULAR HGB CONC 34.2 g/dl (32.0-36.0); MEAN CORPUSCULAR VOLUME 96.1 fl (83.0-99.0); MEAN PLATELET VOLUME 8.9 fl (9.4-12.4); MONOCYTES ABSOLUTE AUTO 1.1 K/mm3 (0.0-0.8); MONOCYTES PERCENT AUTO 5.4 % (0.0-8.0); NEUTROPHILS ABSOLUTE AUTO 17.6 K/mm3 (1.8-7.7); NEUTROPHILS PERCENT AUTO 84.9 % (41.0-71.0); PLATELET COUNT,PLT 280 K/mm3 (150-400); RED BLOOD CELL COUNT 5.96 M/mm3 (4.52-5.90)
[2025-03-15] MEDS: Sodium Chloride 0.9% 1,000 ML IV ONE ×2 (20:28→22:55)
[2025-03-15] MEDS: Ondansetron 4 MG/2 ML SDV IVPUSH ONE ×2 (20:28→23:49)
[2025-03-15] MEDS: Pantoprazole 80 MG in Sodium Chloride 0.9% 100 ML IV SCH (20:29)
[2025-03-15] MEDS: Pantoprazole 40 MG Vial IVPUSH ONE (20:29)
[2025-03-15] MEDS: Morphine 4 MG/ML Syringe IVPUSH ONE (20:30)
[2025-03-15 20:44] LABS: A/G RATIO 1.1 (1-2); ALBUMIN 4.6 g/dl (3.4-5.0); BILIRUBIN TOTAL 0.6 mg/dL (0.2-1.0); BUN/CREATININE RATIO 13.1 (14-18); CALCIUM 9.6 mg/dL (8.5-10.1); CREATININE 1.3 mg/dL (0.7-1.3); EST CRCL DRUG DOSING (CG) 61.59 mL/min; ETHANOL BLOOD MEDICAL 0.19 gm% (0.00); PROTEIN TOTAL,TP 8.7 g/dl (6.4-8.2)
[2025-03-15 20:45] LABS: MAGNESIUM 1.9 mg/dL (1.8-2.4)
[2025-03-15] MEDS: Iopamidol 612 MG/ML 100 ML Bottle IVPUSH ONE (20:59)
[2025-03-15] MEDS: Sodium Chloride 0.9% 10 ML Syringe FLUSH PRN (20:59)
[2025-03-15] MEDS: Pantoprazole 40 MG Vial ONE (21:01)
[2025-03-15 22:50] LABS: BASOPHILS ABSOLUTE AUTO 0.1 K/mm3 (0.0-0.2); BASOPHILS PERCENT AUTO 0.3 % (0.0-1.0); EOSINOPHILS PERCENT AUTO 0.1 % (0.0-6.0); HEMATOCRIT 50.4 % (42.0-52.0); HEMOGLOBIN 16.9 gm/dl (14.0-18.0); IMMATURE GRAN ABSOLUTE AUTO 0.19 K/mm3 (0.00-0.05); IMMATURE GRAN PERCENT AUTO 1.1 % (0.0-0.4); LYMPHOCYTES ABSOLUTE AUTO 1.1 K/mm3 (1.0-4.8); LYMPHOCYTES PERCENT AUTO 6.4 % (24.0-44.0); MEAN CORPUSCULAR HEMOGLOBIN 32.6 pg (28.0-32.0); MEAN CORPUSCULAR HGB CONC 33.5 g/dl (32.0-36.0); MEAN CORPUSCULAR VOLUME 97.1 fl (83.0-99.0); MEAN PLATELET VOLUME 8.6 fl (9.4-12.4); MONOCYTES ABSOLUTE AUTO 0.8 K/mm3 (0.0-0.8); MONOCYTES PERCENT AUTO 4.6 % (0.0-8.0); NEUTROPHILS ABSOLUTE AUTO 15.2 K/mm3 (1.8-7.7); NEUTROPHILS PERCENT AUTO 87.5 % (41.0-71.0); PLATELET COUNT,PLT 226 K/mm3 (150-400); RED BLOOD CELL COUNT 5.19 M/mm3 (4.52-5.90); WHITE BLOOD CELL COUNT,WBC 17.32 K/mm3 (3.9-11.3)
[2025-03-15 23:18] LABS: APPEARANCE,URINE CLEAR (Clear); BILIRUBIN,URINE NEGATIVE (Negative); COLOR,URINE YELLOW (Yellow); GLUCOSE,URINE NEGATIVE (Negative); KETONES,URINE 3+ (Negative); LEUKOCYTE ESTERASE,URINE NEGATIVE (Negative); NITRITE,URINE NEGATIVE (Negative); OCCULT BLOOD,URINE TRACE-LYSED (Negative); PH,URINE 5.5 (5.0-8.0); PROTEIN,URINE NEGATIVE (Negative); UROBILINOGEN,URINE 0.2 (0.2-1.0)
[2025-03-15] MEDS ORDERED: LORazepam 2 MG/ML SDV IVPUSH ONE (23:40)
[2025-03-15 23:47] LABS: RBC,URINE 0-5 /hpf (0-5); WBC,URINE 0-5 /hpf (0-5)
[2025-03-15 23:48] LABS: EPITHELIAL CELLS,URINE 0-5 /hpf (0-5)
[2025-03-15] MEDS: HYDROmorphone 0.5 MG/0.5 ML Syringe IVPUSH ONE (23:49)
[2025-03-15 23:53] LABS: BACTERIA,URINE RARE /hpf (FEW); HYALINE CASTS,URINE 0-5 /lpf (0-5); MUCUS,URINE RARE /hpf (FEW)
[2025-03-16] MEDS: Sodium Chloride 0.9% 1,000 ML IV ONE (00:24)
[2025-03-16 00:36] LABS: BASOPHILS ABSOLUTE AUTO 0.1 K/mm3 (0.0-0.2); BASOPHILS PERCENT AUTO 0.3 % (0.0-1.0); EOSINOPHILS PERCENT AUTO 0.2 % (0.0-6.0); HEMOGLOBIN 16.4 gm/dl (14.0-18.0); IMMATURE GRAN ABSOLUTE AUTO 0.13 K/mm3 (0.00-0.05); IMMATURE GRAN PERCENT AUTO 0.9 % (0.0-0.4); LYMPHOCYTES ABSOLUTE AUTO 1.5 K/mm3 (1.0-4.8); LYMPHOCYTES PERCENT AUTO 10.6 % (24.0-44.0); MEAN CORPUSCULAR HEMOGLOBIN 33.3 pg (28.0-32.0); MEAN CORPUSCULAR HGB CONC 34.2 g/dl (32.0-36.0); MEAN CORPUSCULAR VOLUME 97.4 fl (83.0-99.0); MEAN PLATELET VOLUME 8.7 fl (9.4-12.4); MONOCYTES ABSOLUTE AUTO 0.7 K/mm3 (0.0-0.8); MONOCYTES PERCENT AUTO 5.1 % (0.0-8.0); NEUTROPHILS ABSOLUTE AUTO 11.9 K/mm3 (1.8-7.7); NEUTROPHILS PERCENT AUTO 82.9 % (41.0-71.0); PLATELET COUNT,PLT 228 K/mm3 (150-400); RED BLOOD CELL COUNT 4.93 M/mm3 (4.52-5.90); WHITE BLOOD CELL COUNT,WBC 14.32 K/mm3 (3.9-11.3)
[2025-03-16 00:57] LABS: ALBUMIN 3.4 g/dl (3.4-5.0); BILIRUBIN TOTAL 0.6 mg/dL (0.2-1.0); BUN/CREATININE RATIO 12.7 (14-18); CALCIUM 7.8 mg/dL (8.5-10.1); CREATININE 1.1 mg/dL (0.7-1.3); EST CRCL DRUG DOSING (CG) 72.79 mL/min; PROTEIN TOTAL,TP 6.7 g/dl (6.4-8.2)
[2025-03-16 01:22] VITALS: BP 116/80
[2025-03-16] MEDS ORDERED: Metoclopramide 10 MG/2 ML SDV IVPUSH ONE (01:54)
[2025-03-16] MEDS ORDERED: Calcium Carbonate 500 MG Tab.Chew PO ONE (01:59)
== END 2025-03-16 02:30 | disposition home or self-care (01) ==
LOC: JD.ED 19:30
DX: F10.120 Alcohol abuse with intoxication, uncomplicated (principal); E86.0 Dehydration; R10.30 Lower abdominal pain, unspecified; K92.0 Hematemesis; E83.51 Hypocalcemia; K21.9 Gastro-esophageal reflux disease without esophagitis; Z79.899 Other long term (current) drug therapy; Z88.0 Allergy status to penicillin; Y90.6 Blood alcohol level of 120-199 mg/100 ml
CPT/HCPCS: 36415; 74177; 80053; 80307; 81001; 83690; 83735; 84484; 85025; 86850; 86900; 86901; 93005; 96365; 96366; 96375; 96376; 99285; J2270; J2405; J2470; J7030; Q9967; 93010; 99284

== ENCOUNTER 2025-03-29 15:12 | Emergency (ER) | payer BC ==
[2025-03-29] MEDS: Ondansetron 4 MG/2 ML SDV IVPUSH ONE ×2 (16:16→16:25)
[2025-03-29 16:18] LABS: BASOPHILS ABSOLUTE AUTO 0.1 K/mm3 (0.0-0.2); BASOPHILS PERCENT AUTO 0.6 % (0.0-1.0); EOSINOPHILS PERCENT AUTO 0.3 % (0.0-6.0); HEMATOCRIT 47.3 % (42.0-52.0); HEMOGLOBIN 16.8 gm/dl (14.0-18.0); IMMATURE GRAN ABSOLUTE AUTO 0.06 K/mm3 (0.00-0.05); IMMATURE GRAN PERCENT AUTO 0.5 % (0.0-0.4); LYMPHOCYTES PERCENT AUTO 8.1 % (24.0-44.0); MEAN CORPUSCULAR HEMOGLOBIN 33.1 pg (28.0-32.0); MEAN CORPUSCULAR HGB CONC 35.5 g/dl (32.0-36.0); MEAN CORPUSCULAR VOLUME 93.1 fl (83.0-99.0); MEAN PLATELET VOLUME 8.8 fl (9.4-12.4); MONOCYTES ABSOLUTE AUTO 0.7 K/mm3 (0.0-0.8); MONOCYTES PERCENT AUTO 6.2 % (0.0-8.0); NEUTROPHILS PERCENT AUTO 84.3 % (41.0-71.0); PLATELET COUNT,PLT 211 K/mm3 (150-400); RED BLOOD CELL COUNT 5.08 M/mm3 (4.52-5.90); WHITE BLOOD CELL COUNT,WBC 11.86 K/mm3 (3.9-11.3)
[2025-03-29] MEDS: LORazepam 2 MG/ML SDV IVPUSH PRN (16:18)
[2025-03-29] MEDS: Thiamine 200 MG/2 ML MDV IVPUSH ONE (16:22)
[2025-03-29] MEDS: Sodium Chloride 0.9% 2,000 ML IV ONE (16:27)
[2025-03-29] MEDS: Magnesium Sulfate 2 GM/50 mL 2 GM/50 ML BAG IV ONE (16:28)
[2025-03-29] MEDS: Acetaminophen 325 MG Tab PO ONE (16:32)
[2025-03-29 16:38] LABS: INR 0.99; PROTHROMBIN TIME 10.5 SECONDS (9.7-12.0)
[2025-03-29 16:42] LABS: A/G RATIO 1.2 (1-2); ALBUMIN 3.8 g/dl (3.4-5.0); ANION GAP 19.7 (5-15); BILIRUBIN TOTAL 2.2 mg/dL (0.2-1.0); BUN/CREATININE RATIO 11.1 (14-18); CALCIUM 8.9 mg/dL (8.5-10.1); CREATININE 0.9 mg/dL (0.7-1.3); EST CRCL DRUG DOSING (CG) 96.56 mL/min; MAGNESIUM 1.5 mg/dL (1.8-2.4); POTASSIUM,K 3.7 mEq/L (3.5-5.1)
[2025-03-29 19:45] LABS: BARBITURATE SCREEN,URINE NEGATIVE (CUTOFF=200); BENZODIAZEPINES SCREEN,URINE PRESUMPTIVE POSITIVE (CUTOFF=150); BUPRENORPHINE SCREEN,URINE NEGATIVE (CUTOFF=10); METHADONE SCREEN, URINE NEGATIVE (CUT0FF=200); METHAMPHETAMINES SCREEN, URINE NEGATIVE (CUTOFF=500); OXYCODONE SCREEN,URINE NEGATIVE (CUT0FF=100); THC SCREEN,URINE 20 NG/ML PRESUMPTIVE POSITIVE (CUTOFF=50)
[2025-03-29 20:00] LABS: AMPHETAMINES SCREEN, URINE NEGATIVE (CUTOFF=500)
[2025-03-29 23:00] VITALS: BP 134/81; PULSE 95
== END 2025-03-29 22:00 | disposition home or self-care (01) ==
LOC: JD.ED 15:12
DX: F10.139 Alcohol abuse with withdrawal, unspecified (principal); K21.9 Gastro-esophageal reflux disease without esophagitis; Z88.0 Allergy status to penicillin; Z91.018 Allergy to other foods
CPT/HCPCS: 36415; 80053; 80143; 80179; 80306; 80307; 83690; 83735; 85025; 85610; 96365; 96366; 96375; 96376; 99285; A9270; J2060; J2405; J3411; J3475; J7030; 99283

== ENCOUNTER 2025-05-01 10:44 | Emergency (ER) | payer BC ==
[2025-05-01 11:38] LABS: BASOPHILS ABSOLUTE AUTO 0.1 K/mm3 (0.0-0.2); BASOPHILS PERCENT AUTO 0.8 % (0.0-1.0); EOSINOPHILS ABSOLUTE AUTO 0.2 K/mm3 (0.0-0.4); EOSINOPHILS PERCENT AUTO 2.5 % (0.0-6.0); HEMATOCRIT 48.9 % (42.0-52.0); HEMOGLOBIN 16.9 gm/dl (14.0-18.0); IMMATURE GRAN ABSOLUTE AUTO 0.08 K/mm3 (0.00-0.05); LYMPHOCYTES ABSOLUTE AUTO 2.2 K/mm3 (1.0-4.8); LYMPHOCYTES PERCENT AUTO 25.9 % (24.0-44.0); MEAN CORPUSCULAR HEMOGLOBIN 33.9 pg (28.0-32.0); MEAN CORPUSCULAR HGB CONC 34.6 g/dl (32.0-36.0); MEAN PLATELET VOLUME 9.6 fl (9.4-12.4); MONOCYTES ABSOLUTE AUTO 0.5 K/mm3 (0.0-0.8); MONOCYTES PERCENT AUTO 6.3 % (0.0-8.0); NEUTROPHILS ABSOLUTE AUTO 5.3 K/mm3 (1.8-7.7); NEUTROPHILS PERCENT AUTO 63.5 % (41.0-71.0); PLATELET COUNT,PLT 181 K/mm3 (150-400); RED BLOOD CELL COUNT 4.99 M/mm3 (4.52-5.90); WHITE BLOOD CELL COUNT,WBC 8.35 K/mm3 (3.9-11.3)
[2025-05-01] MEDS: Ondansetron 4 MG/2 ML SDV IVPUSH ONE (11:58)
[2025-05-01] MEDS: Sodium Chloride 0.9% 1,000 ML IV SCH (12:00)
[2025-05-01 12:06] LABS: A/G RATIO 0.9 (1-2); ALBUMIN 3.6 g/dl (3.4-5.0); ANION GAP 18.7 (5-15); BILIRUBIN TOTAL 0.7 mg/dL (0.2-1.0); CALCIUM 9.2 mg/dL (8.5-10.1); CREATININE 0.8 mg/dL (0.7-1.3); EST CRCL DRUG DOSING (CG) 100.74 mL/min; ETHANOL BLOOD MEDICAL 0.09 gm% (0.00); PROTEIN TOTAL,TP 7.7 g/dl (6.4-8.2); TSH 0.381 uIU/mL (0.358-3.74)
[2025-05-01 12:07] LABS: POTASSIUM,K 3.7 mEq/L (3.5-5.1)
[2025-05-01] MEDS ORDERED: Sodium Chloride 0.9% 1,000 ML IV SCH (12:15)
[2025-05-01] MEDS: LORazepam 2 MG/ML SDV IVPUSH ONE ×2 (12:45→13:52)
[2025-05-01 13:38] LABS: BARBITURATE SCREEN,URINE NEGATIVE (CUTOFF=200); BENZODIAZEPINES SCREEN,URINE PRESUMPTIVE POSITIVE (CUTOFF=150); BUPRENORPHINE SCREEN,URINE NEGATIVE (CUTOFF=10); METHADONE SCREEN, URINE NEGATIVE (CUT0FF=200); METHAMPHETAMINES SCREEN, URINE NEGATIVE (CUTOFF=500); OXYCODONE SCREEN,URINE NEGATIVE (CUT0FF=100); THC SCREEN,URINE 20 NG/ML PRESUMPTIVE POSITIVE (CUTOFF=50)
[2025-05-01 13:41] LABS: AMPHETAMINES SCREEN, URINE NEGATIVE (CUTOFF=500)
[2025-05-01 13:57] VITALS: BP 123/95; PULSE 113
== END 2025-05-01 14:20 | disposition home or self-care (01) ==
LOC: JD.ED 10:44
DX: F10.19 Alcohol abuse with unspecified alcohol-induced disorder (principal); K21.9 Gastro-esophageal reflux disease without esophagitis; Z88.0 Allergy status to penicillin; Z88.8 Allergy status to other drugs, medicaments and biological substances; Z79.899 Other long term (current) drug therapy
CPT/HCPCS: 36415; 80053; 80143; 80179; 80306; 80307; 84443; 85025; 93005; 96361; 96374; 96375; 96376; 99285; J2060; J2405; J7030; 93010; 99283